=== PATIENT | male | born 1995 | race Caucasian/White ===

== ENCOUNTER 2020-01-14 19:32 | Inpatient (IN) | payer MEDICAID ==
[~2020-01-14] VITALS: Ht 177.8 cm; Wt 84.8 kg
[2020-01-14 19:36] VITALS: BP_SYST 127
--- NOTE | 2020-01-14 19:40 | NUR ---
Patient to ER bed 2 to gown for evaluation. Side rails up.
--- NOTE | 2020-01-14 19:45 | NUR ---
Pt brought in by [facility] from [facility]. Pt awake, nonverbal, vent-dependent. EMS and Facility staff state that patient had brief episode of low spo2 saturation to the approx value of 70% on 40% oxygen vented. EMS state that patient increased to 81% spo2 after they got onscene and started to assist patient with BVM and 100% oxygen. Pt presented to the ED with spo2 of 88%, being assisted with BVM. Pt diaphoretic and had moderate saliva/mucus in mouth and airway. Pt not withdrawing from pain at this time, pt appears to be otherwise in mild distress only. pt family denies any other medical complain/new symptoms at this time.
--- NOTE | 2020-01-14 19:50 | NUR ---
ER at bedside examining patient.
[2020-01-14] MEDS ORDERED: NACL 0.9% 1,000 ML IV ONE (19:51)
--- NOTE | 2020-01-14 20:00 | NUR ---
Lab bedside performing Blood Draw
--- NOTE | 2020-01-14 20:05 | NUR ---
train control technician bedside evaluating, examining and setting up ventilator for mechanical ventilation via tracheostomy
[2020-01-14 20:34] LABS: BASOPHILS % (AUTO) 0.4 % (0.0-2.0); EOSINOPHILS # (AUTO) 0.1 K/uL (0.0-0.4); EOSINOPHILS % (AUTO) 1.3 % (0.0-4.0); HEMATOCRIT 41.8 % (36-54); HEMOGLOBIN 13.8 g/dL (14.0-18.0); LYMPHOCYTES % (AUTO) 19.3 % (20.5-51.5); MEAN CORPUSCULAR HEMOGLOBIN 29 pg (27-31); MEAN CORPUSCULAR HGB CONC 33 % (32-36); MEAN CORPUSCULAR VOLUME 88 fL (79.0-98.0); MONOCYTES % (AUTO) 9.5 % (1.7-9.3); NEUTROPHILS # (AUTO) 7.1 K/uL (1.8-7.7); NEUTROPHILS % (AUTO) 69.5 % (40.0-70.0); PLATELET COUNT (AUTO) 394 K/uL (130-430); RED BLOOD CELL COUNT(AUTO) 4.74 MIL/uL (4.2-6.2); RED CELL DISTRIBUTION WIDTH 14.7 % (9.0-15.0); WHITE BLOOD COUNT (AUTO) 10.2 K/uL (4.8-10.8)
[2020-01-14 20:49] LABS: BILIRUBIN,URINE NEGATIVE (NEGATIVE); BLOOD, URINE 1+ (NEGATIVE); CLARITY/URINE SL CLOUDY (CLEAR); COLOR,URINE YELLOW (YELLOW); GLUCOSE,URINE NEGATIVE (NEGATIVE); KETONES,URINE NEGATIVE (NEGATIVE); LEUKOCYTE ESTERASE ,URINE 2+ (NEGATIVE); NITRITE, URINE NEGATIVE (NEGATIVE); PROTEIN URINE 2+ (NEGATIVE); UROBILINOGEN,URINE 0.2 (0.2-1.0)
[2020-01-14] MEDS ORDERED: DILTIAZEM HCL 25 MG/5 ML VIAL IVP ONE (21:00)
--- NOTE | 2020-01-14 21:00 | NUR ---
Pt resting in ED bed, no acute distress. Pt had family bedside. [place] provided to patient.
[2020-01-14 21:09] LABS: WBC,URINE >100 /HPF (0-3)
[2020-01-14 21:10] LABS: BACTERIA,URINE MODERATE /HPF (None Seen); MUCUS,URINE None Seen /LPF (None Seen)
[2020-01-14 21:26] LABS: CALCIUM 9.7 mg/dL (8.4-11.0); CREATININE 0.52 mg/dL (0.55-1.30); POTASSIUM 4.3 mmol/L (3.5-5.1)
[2020-01-14 21:30] LABS: ALBUMIN 3.5 g/dL (3.4-4.8); TOTAL BILIRUBIN 0.4 mg/dL (0.0-1.0)
--- NOTE | 2020-01-14 22:00 | NUR ---
Pt resting, No acute distress noted
[2020-01-14] MEDS ORDERED: LEVOFLOXACIN 500 MG/D5W 100 ML IV ONE (22:30)
--- NOTE | 2020-01-14 23:00 | NUR ---
Pt suctioned via in-line ET suction device. scant mucus present
[2020-01-14] MEDS ORDERED: LOVI40 SQ (23:09)
[2020-01-14] MEDS ORDERED: PROP10TA10 GT (23:09)
[2020-01-14] MEDS ORDERED: LEVE100S GT (23:12)
[2020-01-14] MEDS ORDERED: PSYL1POW GT (23:14)
[2020-01-14] MEDS ORDERED: RIVA10TA GT (23:16)
[2020-01-14] MEDS ORDERED: DOCU-144 GT (23:19)
[2020-01-14] MEDS ORDERED: DOCU250C14 GT (23:19)
[2020-01-14] MEDS ORDERED: TYLL650 GT (23:22)
[2020-01-14] MEDS ORDERED: UTI STAT GT (23:23)
[2020-01-14] MEDS ORDERED: MULT-300 GT (23:25)
[2020-01-14] MEDS ORDERED: ASCO500S10 GT (23:25)
[2020-01-14] MEDS ORDERED: ZINC220T4 GT (23:26)
[2020-01-15] VITALS (31 sets, daily range): BP systolic 93–136
[2020-01-15] MEDS ORDERED: NACL 0.9% 2,000 ML IV ONE
--- NOTE | 2020-01-15 | NUR ---
Pt resting in ED bed, no distress. Family bedside
--- NOTE | 2020-01-15 01:00 | NUR ---
Family bedside with patient
[2020-01-15] MEDS ORDERED: ACETAMINOPHEN 650 MG/20.3 ML UDC GT PRN (01:15)
[2020-01-15] MEDS ORDERED: ASCORBIC ACID GT SCH (01:15)
[2020-01-15] MEDS ORDERED: PIPERACILLIN/TAZO 4.5 GM in NS 100 ML IV ONE (01:15)
[2020-01-15] MEDS ORDERED: DOCUSATE SODIUM 100 MG CAPSULE PO PRN (01:15)
--- NOTE | 2020-01-15 02:00 | NUR ---
Pt resting in ED bed. No acute distress noted. Pt tolerating fluids and antibiotics well.
[2020-01-15] MEDS ORDERED: PIPERACILLIN/TAZOBACTAM 4.5 GM/VIAL (ZOSYN) IV ONE (02:25)
[2020-01-15] MEDS: LR 1,000 ML IV SCH ×3 (02:25→21:21)
--- NOTE | 2020-01-15 02:30 | NUR ---
Patient will be admitted to care of . Admitted to ICU unit. Will go to room 3. Belongings list completed. Complete and up to date summary report printed. SBAR report to be given at bedside with opportunity for questions.
--- NOTE | 2020-01-15 02:44 | NUR ---
Transfer to ICU via ACLS protocol. Licensed nurse present. IV present no signs or symptoms of infiltration.
--- NOTE | 2020-01-15 02:55 | NUR ---
Report Given to Roel Skinner
--- NOTE | 2020-01-15 03:00 | NUR ---
pt received via the er-dept.pt.presents trach set-up to vent:settings.tv;500,fio-2%=40%,a/c:12,p;5. pt.suctioned.g-tube present:to initiate the g-tube feed.melgar cath present.general cutaneous integrity intact.absent denuded skin.iv fluids access located rt.antecubital to continue w the administration of the iv fluids.pt.presents s.tachycardia;i am to administer inderal;10mg via the g-tube.call light placed w/in reach of the pt.
[2020-01-15] MEDS: PROPRANOLOL HCL 10 MG TABLET (INDERAL) GT SCH ×2 (03:54→06:00)
--- NOTE | 2020-01-15 04:00 | NUR ---
pt.assessed.v/s assessed;heart rate remains rapid.i have administered inderal;10mg via the g-tube. pt.assessed for cleanliness.pt.repositioned.iv access intact;patent iv fluids infusing.g-tube intact patent;awaiting g-tube feed per the food production supervisor;ace to provide.melgar cath attended to measured.i have attended to the oral care.i have attend to trach suction.vent asses e;pt. tolerating the vent settings.call light placed w/in reach of the pt.
[2020-01-15] MEDS ORDERED: PROPRANOLOL HCL 10 MG TABLET (INDERAL) ONE (04:08)
--- NOTE | 2020-01-15 06:00 | NUR ---
pt.assessed.v/s assessed;pt.presents s.tachycardia.i have initiated the g-tube feed;vital@70ml/hr per 's order.iv access intact;patent iv fluids infusing./g-tube intact patent g-tube feed infusing.melgar cath intact; patent urine content present.pt.assessed for cleanliness.pt.repositioned.call light placed w/in reach of the pt. Addendum: 01/15/20 at 0621 by Roel Hammer RN i have attended to oral care.i have suctioned the pt.
--- NOTE | 2020-01-15 07:30 | NUR ---
AM ASSESSMENT Pt received from night RN using SBAR.
[2020-01-15] MEDS: ENOXAPARIN SODIUM 40 MG/0.4 ML SYRINGE SQ SCH (08:14)
[2020-01-15] MEDS: LevETIRAcetam 500 MG/5 ML UDC ORAL LIQUID GT SCH ×2 (08:23→20:03)
[2020-01-15] MEDS: PSYLLIUM HUSK 1 PKT PACKET GT SCH ×3 (08:25→20:04)
--- NOTE | 2020-01-15 08:52 | NUR ---
RT NOTES Transported pt to and from CT w/ charge nurse Debi and mandi Cherry. Spare trach tube remained w/ pt during transport. Bagged pt w/ 100% o2 via ambubag to t.t. t.t remains secure/patent. @0924 pt back in icu & on the vent w/ same settings.
--- NOTE | 2020-01-15 08:52 | NUR ---
CT Pt is off unit to CT with RN and RT, pt connected to transport monitor.
[2020-01-15] MEDS ORDERED: LACTOBACILLUS RHAMNOSUS GG 1 CAP CAPSULE PO SCH (09:00)
[2020-01-15] MEDS ORDERED: MULTIVITAMINS,THERAPEUTIC 5 ML UDC GT SCH (09:00)
[2020-01-15] MEDS ORDERED: MULTIVITAMINS W MINERALS GT SCH (09:00)
[2020-01-15] MEDS ORDERED: PSYLLIUM HUSK GT SCH (09:00)
[2020-01-15] MEDS ORDERED: NON-FORMULARY MEDICATION (Zinc sulfate 1 TAB) GT SCH (09:00)
[2020-01-15] MEDS ORDERED: [UNRECOGNIZED DRUG - OTHER] GT SCH (09:00)
--- NOTE | 2020-01-15 09:08 | NUR ---
CT Pt returned to unit from CT. Pt connected to in room monitor system.
--- NOTE | 2020-01-15 09:12 | NUR ---
Nutrition Update Greg Scale 13 noted. Pt admitted for sepsis. Diet: Vital AF at 70 ml/hr, Free Water Flush: 100 ML Q6H via GT BMI: 27 kg/m2 RD to follow per nutrition care standards.
--- NOTE | 2020-01-15 10:40 | NUR ---
Temp Pt observed to be sweating, oral temperature taken which was 99.2. Informed pts mother and removed excess linen.
[2020-01-15] MEDS ORDERED: MULTIVIT-MINERALS/FERROUS GLUC 15 ML UDC GT SCH (10:41)
[2020-01-15] MEDS ORDERED: MULTIVIT-MINERALS/FERROUS GLUC 15 ML UDC GT ONE (11:00)
[2020-01-15] MEDS ORDERED: METOPROLOL TARTRATE 50 MG TABLET PO ONE (11:45)
--- NOTE | 2020-01-15 12:08 | NUR ---
Resting Pt is resting in bed with eyes closed, no signs of acute distress at this time.
[2020-01-15] MEDS ORDERED: COMMUNICATION ORDER XX ONE (12:30)
[2020-01-15] MEDS ORDERED: DOCUSATE SODIUM 100 MG/10 ML UDC GT PRN (12:34)
--- NOTE | 2020-01-15 15:35 | NUR ---
RT NOTE FIO2 to 80% due to low saturation, improved to 92-93%. Dr Montanez made aware. ABG to be drawn.
--- NOTE | 2020-01-15 15:42 | NUR ---
FiO2 Pt started to desaturate from 93% to 86%, oral and deep tracheal suction provided with small amount of thin white secretion. Switched pulse ox to another finger. Pt was maintaining 86% oxygen saturation, RT increased FiO2 to 80%. Will continue to monitor.
--- NOTE | 2020-01-15 16:40 | NUR ---
RT NOTES Despite multiple attempts, unable to enter ABG result to [employer]. RN made aware, will place hard copy of result in chart under "cardiopulmonary". @173 still unable to enter. Will endorse to NOC shift.
--- NOTE | 2020-01-15 17:50 | NUR ---
Transferred HALL Pt was transferred to a low air loss mattress bed. Pt tolerated well, will continue to monitor.
--- NOTE | 2020-01-15 19:20 | NUR ---
Opening Note Patient report received via SBAR from endorsing RN
--- NOTE | 2020-01-15 19:29 | NUR ---
Closing Notes Pt endorsed to night RN using sbar.
[2020-01-15] MEDS: LACTOBACILLUS RHAMNOSUS GG 1 CAP CAPSULE GT SCH (20:03)
[2020-01-15] MEDS: METOPROLOL TARTRATE 50 MG TABLET GT SCH (20:04)
[2020-01-15] MEDS: CEFEPIME 1 GM in D5W 50 ML IV SCH (20:06)
--- NOTE | 2020-01-15 20:15 | NUR ---
Nursing Note Patient started to desaturate from 97% to 84%, patient was provided oral and deep tracheal suction with minimal thin white secretions removed. RT increased FiO2 to 100%. Patient had elevated temperature, cooling measures applied and PRN medication administered.
--- NOTE | 2020-01-15 20:28 | NUR ---
ORDERS DR. TARIQ MADRID LEFT VOICEMAIL EXCHANGE DID NOT DIRECT ME TO PERSON CALLED MULTIPLE TIMES TO GET LIVE PERSON ON PHONE DIALED: [phone]
[2020-01-15] MEDS: ACETAMINOPHEN 650 MG/20.3 ML UDC GT PRN (20:41)
--- NOTE | 2020-01-15 20:50 | NUR ---
MOUNIKA WAS ABLE TO GET A HOLD OF DR. MADRID THROUGH USING EXCHANGE NUMBER OF DIALED: [phone] SAME EXCHANGE GROUP
[2020-01-15] MEDS ORDERED: MORPHINE 2 MG/ML INJ. SYRINGE IVP ONE (21:00)
--- NOTE | 2020-01-15 22:00 | NUR ---
Nursing Note Patient repositioned in bed, oral care performed, cooling measures continued. Patient tolerated well
[2020-01-16] VITALS (34 sets, daily range): BP systolic 95–154
--- NOTE | 2020-01-16 | NUR ---
Nursing Note Patient's FiO2 changed to 80% by RT, patient tolerating current vent settings. Oral care provided.
--- NOTE | 2020-01-16 00:30 | NUR ---
IV PLACEMENT: # 22 gauge angiocath placed to left hand. Use of asceptic technique. Opsite placed over site. Blood return noted. Flushed with 10 cc of normal saline. No evidence of infiltration noted. Patient tolerated well.
--- NOTE | 2020-01-16 01:00 | NUR ---
Nursing Note Patient provided oral care, repositioned in bed. FiO2 changed to 70% by RT, patient tolerating current vent settings
--- NOTE | 2020-01-16 03:00 | NUR ---
Nursing Note CHG bath given, linens changed, gown changed, skin picture taken for chart. PRN medication given prior to decrease discomfort. Patient had elevated temp, prn medication given.
--- NOTE | 2020-01-16 04:00 | NUR ---
Nursing Note Patient started to desaturate from 99% to 88%, patient was provided oral and deep tracheal suction with minimal thin white secretions removed. RT increased FiO2 to 100%. Patient provided prn medication
[2020-01-16] MEDS: MORPHINE 2 MG/ML INJ. SYRINGE IVP PRN (04:40)
[2020-01-16] MEDS: ACETAMINOPHEN 650 MG/20.3 ML UDC GT PRN ×2 (05:06→14:37)
[2020-01-16] MEDS: LORazepam 2 MG/ML VIAL IVP PRN ×3 (05:18→17:07)
--- NOTE | 2020-01-16 06:00 | NUR ---
Nursing Note Patient repositioned in bed and lifted higher, patient tolerated well
[2020-01-16 06:01] LABS: BASOPHILS # (AUTO) 0.1 K/uL (0.0-0.2); BASOPHILS % (AUTO) 0.6 % (0.0-2.0); EOSINOPHILS # (AUTO) 0.1 K/uL (0.0-0.4); EOSINOPHILS % (AUTO) 0.8 % (0.0-4.0); HEMATOCRIT 34.3 % (36-54); HEMOGLOBIN 11.4 g/dL (14.0-18.0); LYMPHOCYTES # (AUTO) 1.6 K/uL (1.0-5.5); MEAN CORPUSCULAR HEMOGLOBIN 30 pg (27-31); MEAN CORPUSCULAR HGB CONC 33 % (32-36); MEAN CORPUSCULAR VOLUME 88 fL (79.0-98.0); MONOCYTES # (AUTO) 0.8 K/uL (0.0-1.0); NEUTROPHILS # (AUTO) 8.9 K/uL (1.8-7.7); NEUTROPHILS % (AUTO) 77.6 % (40.0-70.0); PLATELET COUNT (AUTO) 274 K/uL (130-430); RED BLOOD CELL COUNT(AUTO) 3.88 MIL/uL (4.2-6.2); RED CELL DISTRIBUTION WIDTH 14.8 % (9.0-15.0); WHITE BLOOD COUNT (AUTO) 11.5 K/uL (4.8-10.8)
[2020-01-16 06:39] LABS: ALBUMIN 2.5 g/dL (3.4-4.8); CALCIUM 8.5 mg/dL (8.4-11.0); CREATININE 0.44 mg/dL (0.55-1.30); POTASSIUM 3.3 mmol/L (3.5-5.1); TOTAL BILIRUBIN 0.3 mg/dL (0.0-1.0)
[2020-01-16] MEDS: LR 1,000 ML IV SCH (07:23)
--- NOTE | 2020-01-16 07:24 | NUR ---
Closing Note Patient report given to oncoming RN via SBAR
[2020-01-16] MEDS: CEFEPIME 1 GM in D5W 50 ML IV SCH ×2 (09:41→21:56)
[2020-01-16] MEDS: ENOXAPARIN SODIUM 40 MG/0.4 ML SYRINGE SQ SCH (09:42)
[2020-01-16] MEDS: MULTIVIT-MINERALS/FERROUS GLUC 15 ML UDC GT SCH (09:43)
[2020-01-16] MEDS: LevETIRAcetam 500 MG/5 ML UDC ORAL LIQUID GT SCH ×2 (09:43→21:57)
[2020-01-16] MEDS: METOPROLOL TARTRATE 50 MG TABLET GT SCH ×2 (09:45→21:56)
[2020-01-16] MEDS: PSYLLIUM HUSK 1 PKT PACKET GT SCH ×3 (09:45→21:57)
[2020-01-16] MEDS: LACTOBACILLUS RHAMNOSUS GG 1 CAP CAPSULE GT SCH ×2 (09:53→21:56)
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
[2020-01-16] MEDS ORDERED: POTASSIUM CHLORIDE 20 MEQ/PKT PACKET PO ONE (14:45)
--- NOTE | 2020-01-16 14:46 | NUR ---
Dietitian Recommendations * Recommend Vital AF 1.2 at 70 ml/hr, Free Water Flush: 200 ml Q6h via GT Provides: 2015 kcal/day, 126 gm protein/day, and 1762 ml free water/day Meets: 87% of estimated caloric needs and 98% of lower end of estimated protein needs LP, RD Please refer to Nutrition Assessment for details. Addendum: 01/16/20 at [address] Amended: Links added. Addendum: 01/16/20 at [address] CORRECTION: Dietitian Recommendations * Recommend Vital AF 1.2 at 70 ml/hr, Free Water Flush: 200 ml Q6h via GT Provides: 2015 kcal/day, 126 gm protein/day, and 2162 ml free water/day Meets: 87% of estimated caloric needs and 98% of lower end of estimated protein needs LP, RD
[2020-01-16] MEDS ORDERED: ACETYLCYSTEINE 20% 4 ML VIAL (RT) ONE ×2 (17:39→19:47)
[2020-01-16] MEDS: 0.45% NACL 1,000 ML IV SCH (18:32)
--- NOTE | 2020-01-16 19:10 | NUR ---
OPENING NOTE SBAR RECEIVED FROM REGSITRY RN. CARE ASSUMED. PT LAYING IN BED. PT ANO X 0. PT HAS TRACHEOSTOMY PORTEX 8.0 CONNECTED TO VENTILATOR. VENT SETTINGS AC 14, TV 400, FiO2 100%, PEEP 5. PT O2 SATURATION 100%. PT SINUS TACHYCARDIA ON MONITOR. HEART RATE 112. RADIAL AND PEDAL PULSES NORMAL. PT HAS 18G TO RIGHT AC RUNNING 1/2 NS @ 50 ML/HR AND 22G TO LEFT HAND SALINE LOCKED. NO EDEMA NOTED. PT ABDOMEN SOFT NON DISTENDED. PT HAS G-TUBE IN PLACE RUNNING VITAL AF @ 70 CC/HR. NO RESIDUAL. PT HAS VIDAL CATHETER FLOWING TO GRAVITY. URINE CLEAR AND YELLOW. PT HAS SMALL WOUND TO UPPER UMBILICUS. DRESSING CLEAN DRY AND INTACT. BED LOCKED IN LOWEST POSITION. SEIZURE PRECAUTIONS IN PLACE. CALL LIGHT WITHIN REACH. SAFETY PRECAUTIONS IN PLACE. WILL CONTINUE TO MONITOR.
--- NOTE | 2020-01-16 20:00 | NUR ---
RT UPDATE PT FiO2 TITRATED DOWN TO 70% PER RT JONNY. O2 SATURATION 100%. WILL CONTINUE TO MONITOR.
--- NOTE | 2020-01-16 21:30 | NUR ---
RT UPDATE PT FiO2 TITRATED DOWN TO 50% PER RT ARNOLD. O2 SATURATION 100%. PT TOLERATING SETTING WELL. NO SIGNS OR SYMPTOMS OF DISTRESS. WILL CONTINUE TO MONITOR.
--- NOTE | 2020-01-16 21:45 | NUR ---
RN UPDATE (IV PLACEMENT): UNABLE TO FLUSH 22G ANGIOCATH IN LEFT HAND. IV REMOVED. 20G ANGIOCATH PLACED IN LEFT WRIST. ASEPTIC TECHNIQUE USED. BLOOD RETURN NOTED. FLUSHED WITH 10CC NS. NO EVIDENCE OF INFILTRATION NOTED. IV SECURED CLEAR DRESSING APPLIED. PT TOLERATED PROCEDURE WELL. WILL CONTINUE TO MONITOR.
[2020-01-16] MEDS: metroNIDAZOLE 500 mg/NS 100 ML IV SCH (21:55)
[2020-01-16] MEDS: POTASSIUM CHLORIDE 20 MEQ/PKT PACKET PO SCH (21:57)
[2020-01-17] VITALS (33 sets, daily range): BP systolic 93–126
[2020-01-17] MEDS: IPRATROPIUM/ALBUTEROL SULFATE 3 ML AMPUL.NEB (DUONEB) INH SCH ×4 (01:07→19:15)
[2020-01-17] MEDS: ACETAMINOPHEN 650 MG/20.3 ML UDC GT PRN (01:42)
[2020-01-17] MEDS: 0.45% NACL 1,000 ML IV SCH ×2 (05:16→17:01)
[2020-01-17] MEDS: metroNIDAZOLE 500 mg/NS 100 ML IV SCH (05:16)
[2020-01-17 05:50] LABS: BASOPHILS # (AUTO) 0.1 K/uL (0.0-0.2); BASOPHILS % (AUTO) 0.5 % (0.0-2.0); EOSINOPHILS # (AUTO) 0.1 K/uL (0.0-0.4); EOSINOPHILS % (AUTO) 1.2 % (0.0-4.0); HEMATOCRIT 31.3 % (36-54); HEMOGLOBIN 10.4 g/dL (14.0-18.0); LYMPHOCYTES # (AUTO) 1.5 K/uL (1.0-5.5); LYMPHOCYTES % (AUTO) 13.8 % (20.5-51.5); MEAN CORPUSCULAR HEMOGLOBIN 29 pg (27-31); MEAN CORPUSCULAR HGB CONC 33 % (32-36); MEAN CORPUSCULAR VOLUME 89 fL (79.0-98.0); MONOCYTES # (AUTO) 0.9 K/uL (0.0-1.0); MONOCYTES % (AUTO) 8.1 % (1.7-9.3); NEUTROPHILS # (AUTO) 8.3 K/uL (1.8-7.7); NEUTROPHILS % (AUTO) 76.4 % (40.0-70.0); PLATELET COUNT (AUTO) 227 K/uL (130-430); RED BLOOD CELL COUNT(AUTO) 3.53 MIL/uL (4.2-6.2); RED CELL DISTRIBUTION WIDTH 14.8 % (9.0-15.0); WHITE BLOOD COUNT (AUTO) 10.9 K/uL (4.8-10.8)
[2020-01-17 06:08] LABS: ALBUMIN 2.3 g/dL (3.4-4.8); CALCIUM 8.3 mg/dL (8.4-11.0); CREATININE 0.41 mg/dL (0.55-1.30); POTASSIUM 3.7 mmol/L (3.5-5.1); TOTAL BILIRUBIN 0.4 mg/dL (0.0-1.0)
[2020-01-17] MEDS: ACETYLCYSTEINE 20% 4 ML VIAL (RT) INH SCH ×4 (07:17→19:15)
--- NOTE | 2020-01-17 07:20 | NUR ---
Endorsement of Care Pt received from night RN using SBAR.
--- NOTE | 2020-01-17 07:32 | NUR ---
CLOSING NOTE PT VENT SETTINGS AC 16, TV 500, FIO2 30%, PEEP 5. PT TOLERATING SETTINGS WELL. NO SIGNS OR SYMPTOMS OF DISTRESS NOTED. SBAR REPORT GIVEN TO ROBBY EARLY. CARE ENDORSED.
--- NOTE | 2020-01-17 08:07 | NUR ---
Melgar Cath Exchanged pt's melgar cath with 16 Fr. using sterile procedure. Pt tolerated well, with 50 cc return of clear yellow urine. Melgar leg fabian applied to pts right leg. Bag is placed below bladder draining to gravity.
[2020-01-17] MEDS: METOPROLOL TARTRATE 50 MG TABLET GT SCH ×2 (08:54→21:24)
[2020-01-17] MEDS: CEFEPIME 1 GM in D5W 50 ML IV SCH (08:55)
[2020-01-17] MEDS: POTASSIUM CHLORIDE 20 MEQ/PKT PACKET PO SCH ×2 (08:55→21:24)
[2020-01-17] MEDS: PSYLLIUM HUSK 1 PKT PACKET GT SCH ×3 (08:55→21:24)
[2020-01-17] MEDS: MORPHINE 2 MG/ML INJ. SYRINGE IVP PRN ×2 (08:55→14:24)
[2020-01-17] MEDS: MULTIVIT-MINERALS/FERROUS GLUC 15 ML UDC GT SCH (08:56)
[2020-01-17] MEDS: LevETIRAcetam 500 MG/5 ML UDC ORAL LIQUID GT SCH ×2 (08:56→21:24)
[2020-01-17] MEDS: ENOXAPARIN SODIUM 40 MG/0.4 ML SYRINGE SQ SCH (08:58)
[2020-01-17] MEDS: LACTOBACILLUS RHAMNOSUS GG 1 CAP CAPSULE GT SCH ×2 (09:00→21:24)
[2020-01-17] MEDS: LORazepam 2 MG/ML VIAL IVP PRN ×2 (09:18→17:31)
--- NOTE | 2020-01-17 12:32 | NUR ---
Isolation Pt's mother informed of MDRO of Urine. Isolation precautions initiated and pts mother informed.
--- NOTE | 2020-01-17 13:15 | NUR ---
Paged Dr. Figueredo for orders. Patient placed on contact precautions for MDRO urine.
[2020-01-17] MEDS: PIPERACILLIN/TAZO 4.5GM/DEX-IS 100 ML IV SCH ×2 (15:30→21:24)
--- NOTE | 2020-01-17 19:21 | NUR ---
Closing Notes Pt endorsed to night RN using SBAR. Both parents reeducated with isolation precautions.
--- NOTE | 2020-01-17 19:28 | NUR ---
OPENING NOTE SBAR RECEIVED FROM REGSITRY RN. CARE ASSUMED. PT LAYING IN BED. PT ANO X 0. PT HAS TRACHEOSTOMY PORTEX 8.0 CONNECTED TO VENTILATOR. VENT SETTINGS AC 14, TV 400, FiO2 30%, PEEP 5. PT O2 SATURATION 100%. PT SINUS TACHYCARDIA ON MONITOR. HEART RATE 104. RADIAL AND PEDAL PULSES NORMAL. PT HAS 18G TO RIGHT AC RUNNING 1/2 NS @ 30 ML/HR AND 20G TO LEFT WRIST SALINE LOCKED. NO EDEMA NOTED. PT ABDOMEN SOFT NON DISTENDED. PT HAS G-TUBE IN PLACE RUNNING VITAL AF @ 70 CC/HR. NO RESIDUAL. PT HAS 16 FR VIDAL CATHETER FLOWING TO GRAVITY. URINE CLEAR AND YELLOW. PT HAS SMALL WOUND TO UPPER UMBILICUS. DRESSING CLEAN DRY AND INTACT. PARENTS AT BEDSIDE. BED LOCKED IN LOWEST POSITION. SEIZURE PRECAUTIONS IN PLACE. CALL LIGHT WITHIN REACH. SAFETY PRECAUTIONS IN PLACE. WILL CONTINUE TO MONITOR.
[2020-01-18] VITALS (36 sets, daily range): BP systolic 98–129
[2020-01-18] MEDS: IPRATROPIUM/ALBUTEROL SULFATE 3 ML AMPUL.NEB (DUONEB) INH SCH ×4 (02:11→19:52)
[2020-01-18] MEDS: ACETAMINOPHEN 650 MG/20.3 ML UDC GT PRN (02:42)
[2020-01-18] MEDS: LORazepam 2 MG/ML VIAL IVP PRN ×3 (02:59→14:56)
[2020-01-18] MEDS: MORPHINE 2 MG/ML INJ. SYRINGE IVP PRN ×2 (03:00→09:37)
[2020-01-18] MEDS: PIPERACILLIN/TAZO 4.5GM/DEX-IS 100 ML IV SCH ×3 (05:07→21:53)
--- NOTE | 2020-01-18 07:20 | NUR ---
Received report and endorsed patient from [facility] shift nurse. Patient in no acute distress. Padded side rails in place. Call light with in reach.
--- NOTE | 2020-01-18 07:31 | NUR ---
CLOSING NOTE PT VENT SETTINGS AC 16, TV 500, FIO2 30%, PEEP 5. PT TOLERATING SETTINGS WELL. NO SIGNS OR SYMPTOMS OF DISTRESS NOTED. SBAR REPORT GIVEN TO KATTY EARLY. CARE ENDORSED.
[2020-01-18] MEDS: POTASSIUM CHLORIDE 20 MEQ/PKT PACKET PO SCH ×2 (09:22→21:54)
[2020-01-18] MEDS: LACTOBACILLUS RHAMNOSUS GG 1 CAP CAPSULE GT SCH ×2 (09:23→21:54)
[2020-01-18] MEDS: MULTIVIT-MINERALS/FERROUS GLUC 15 ML UDC GT SCH (09:23)
[2020-01-18] MEDS: METOPROLOL TARTRATE 50 MG TABLET GT SCH ×2 (09:23→21:55)
[2020-01-18] MEDS: LevETIRAcetam 500 MG/5 ML UDC ORAL LIQUID GT SCH ×2 (09:24→21:59)
[2020-01-18] MEDS: PSYLLIUM HUSK 1 PKT PACKET GT SCH ×3 (09:24→21:54)
[2020-01-18] MEDS: ENOXAPARIN SODIUM 40 MG/0.4 ML SYRINGE SQ SCH (09:25)
[2020-01-18] MEDS: ACETYLCYSTEINE 20% 4 ML VIAL (RT) INH SCH ×4 (10:09→19:53)
[2020-01-18] MEDS: 0.45% NACL 1,000 ML IV SCH (14:56)
--- NOTE | 2020-01-18 19:30 | NUR ---
Endorsed patient and gave report to NOC shift nurse. In no acute distress. Padded side rails in place. Call light with in reach.
--- NOTE | 2020-01-18 20:33 | NUR ---
Trach to VENTILATOR AC 16 TV 500 FI02 30 % trach suction moderate amount of thick white sputum up Right position minimal vent ALARMING noted 02 SAT 98 % CHEST MOVEMENT SHALLOW also symmetrical procedure tolerated .
--- NOTE | 2020-01-18 23:13 | NUR ---
Patient on ISOLATION Precautions MDRO of the URINE , FREQUENT HAND WASHING implemented procedures explained .
--- NOTE | 2020-01-18 23:15 | NUR ---
Turning & Repositioning patient on TWO hour schedule LOW AIR LOSS matres in place OFF LOADING WITH PILLOWS TOLERATED HEELS FLOATING .
[2020-01-19] VITALS (32 sets, daily range): BP systolic 95–134
[2020-01-19] MEDS: IPRATROPIUM/ALBUTEROL SULFATE 3 ML AMPUL.NEB (DUONEB) INH SCH ×4 (01:37→20:01)
--- NOTE | 2020-01-19 03:05 | NUR ---
WOUND CARE provided lower abdomen old surgical site 100 % pink therahoney gel applied foam DSD non adhesive covered patient tolerated .
[2020-01-19] MEDS: MORPHINE 4 MG/ML INJ. SYRINGE IVP PRN (04:13)
[2020-01-19] MEDS: LORazepam 2 MG/ML VIAL IVP PRN (04:13)
--- NOTE | 2020-01-19 04:59 | NUR ---
LORAZEPAM 1 MG IVP administer for AGITATION HR 112 , off loading & position change also helpful .
[2020-01-19] MEDS: PIPERACILLIN/TAZO 4.5GM/DEX-IS 100 ML IV SCH ×3 (07:03→21:47)
[2020-01-19 07:08] LABS: BASOPHILS % (AUTO) 0.3 % (0.0-2.0); EOSINOPHILS # (AUTO) 0.2 K/uL (0.0-0.4); EOSINOPHILS % (AUTO) 2.8 % (0.0-4.0); HEMATOCRIT 32.8 % (36-54); HEMOGLOBIN 10.8 g/dL (14.0-18.0); LYMPHOCYTES # (AUTO) 1.9 K/uL (1.0-5.5); LYMPHOCYTES % (AUTO) 21.7 % (20.5-51.5); MEAN CORPUSCULAR HEMOGLOBIN 30 pg (27-31); MEAN CORPUSCULAR HGB CONC 33 % (32-36); MEAN CORPUSCULAR VOLUME 89 fL (79.0-98.0); MONOCYTES % (AUTO) 11.1 % (1.7-9.3); NEUTROPHILS # (AUTO) 5.6 K/uL (1.8-7.7); NEUTROPHILS % (AUTO) 64.1 % (40.0-70.0); PLATELET COUNT (AUTO) 256 K/uL (130-430); RED BLOOD CELL COUNT(AUTO) 3.67 MIL/uL (4.2-6.2); RED CELL DISTRIBUTION WIDTH 14.4 % (9.0-15.0); WHITE BLOOD COUNT (AUTO) 8.8 K/uL (4.8-10.8)
[2020-01-19 07:37] LABS: ALBUMIN 2.4 g/dL (3.4-4.8); CALCIUM 8.6 mg/dL (8.4-11.0); CREATININE 0.39 mg/dL (0.55-1.30); POTASSIUM 3.9 mmol/L (3.5-5.1); TOTAL BILIRUBIN 0.3 mg/dL (0.0-1.0)
--- NOTE | 2020-01-19 08:00 | NUR ---
Received pt alert with eyes open, not tracking and non verbal. Does not follow instructions. HOB up. #8 portex trach to vent on AC 16/500/30%/p5. Comfortable on these settings. RR 26/min. 02 Sat 93%. Suctioned for small amount of owusu secretions from Trach and pt clenches teeth when suctioning mouth. Lungs with rhonchi bilaterally. Pt contracted, rigid and elevated on pillows. Feet lifted off bed on pillows. Pt is very diaphoretic. Afebrile. GT to abd with tube feeds at 30 cc/hr. Foam dressing to navel area dated 01/18/430 as last change date. Will defer to next change 24 hours from that date. Dressing dry and intact. ABD soft with bowel sounds. SR on monitor. IV to right AC with IVF infusing at 30 cc/hr. Saline lock 20g to left hand. Guzmán cath in place with genet urine in bag. Wound to coccyx not observed at this time. Will continue to monitor.
[2020-01-19] MEDS: PSYLLIUM HUSK 1 PKT PACKET GT SCH ×3 (08:11→20:07)
[2020-01-19] MEDS: LACTOBACILLUS RHAMNOSUS GG 1 CAP CAPSULE GT SCH ×2 (08:11→20:07)
[2020-01-19] MEDS: POTASSIUM CHLORIDE 20 MEQ/PKT PACKET PO SCH ×2 (08:11→20:07)
[2020-01-19] MEDS: METOPROLOL TARTRATE 50 MG TABLET GT SCH ×2 (08:12→20:11)
[2020-01-19] MEDS: ENOXAPARIN SODIUM 40 MG/0.4 ML SYRINGE SQ SCH (08:12)
[2020-01-19] MEDS: LevETIRAcetam 500 MG/5 ML UDC ORAL LIQUID GT SCH ×2 (08:14→20:11)
[2020-01-19] MEDS: MULTIVIT-MINERALS/FERROUS GLUC 15 ML UDC GT SCH (08:14)
[2020-01-19] MEDS: ACETYLCYSTEINE 20% 4 ML VIAL (RT) INH SCH ×3 (08:43→19:40)
--- NOTE | 2020-01-19 11:40 | NUR ---
Repositioned to side with pillow support. No change in condition.
--- NOTE | 2020-01-19 14:35 | NUR ---
KRISTOFER VERA Received msg from Keiko @ [facility], ph [phone], wanted a call back. Called back & left msg.
[2020-01-19] MEDS: ACETAMINOPHEN 650 MG/20.3 ML UDC GT PRN (14:40)
[2020-01-19] MEDS: 0.45% NACL 1,000 ML IV SCH (16:48)
--- NOTE | 2020-01-19 17:10 | NUR ---
Dr. Ulloa in to see pt.
--- NOTE | 2020-01-19 19:20 | NUR ---
Report given to Shantelle on MST.
--- NOTE | 2020-01-19 19:45 | NUR ---
Report given to DROP HAMMER OPERATOR HELPER.
--- NOTE | 2020-01-19 19:56 | NUR ---
Opening Note Pt in bed, eyes open but unable to track or follow commands. Pt ST on the monitor, Trach to vent, AC 16, 500, +5, 30%. Orders to keep sats above 92%. Pt O2 saturations in the high 90s. Pt has MOISES IV in place, 20g, and RAC 20g in place. IVF running. Sites C/D/I. G-tube in place running TF, no residual noted. Guzmán catheter in place draining urine to gravity. Pt VSS. Afebrile. Pt family at bedside. Will continue to monitor.
--- NOTE | 2020-01-19 20:35 | NUR ---
Pt transferred Pt transferred to Telemetry, room 130A via [facility]. RN and RT with Pt during transport. Pt hooked up to oxygen and cardiac monitor technician during Transport. Tolerated well, no s/s of distress noted. Pt report previously given from Dayshift RN to Shantelle nightsabdirahman EARLY. SBAR report given at bedside to Shantelle EARLY. Chart and Medications sent w/ Pt.
--- NOTE | 2020-01-19 20:50 | NUR ---
Opening notes Received pt from ICU to Room 130-A. Pt eyes open, non-verbal, mechanical vent dependent setting AC 16, FiO2 30%, Peep 5, TV 500. Connected to Tele box, O2 sat 96-98%, SR on the monitor. GT feeding resumed Vitall 1.2 at 70cc/hr, no residual noted. HOB maintained elevated. Diogenes arms contracted. IVF resumed at ordered rate R. AC clear and patent. Pt on low air mattress. Guzmán catheter draining to gravity noted with clear, yellow urine. Contact isolation maintained. To monitor.
--- NOTE | 2020-01-20 00:21 | NUR ---
Rounds Pt asleep, eyes closed. Respirations even and unlabored. No changes in mechanical vent settings. HOB maintained elevated. GT water flush 200ml given as ordered. Safety maintained. To monitor.
[2020-01-20 00:24] VITALS: BP_SYST 102
[2020-01-20] MEDS: IPRATROPIUM/ALBUTEROL SULFATE 3 ML AMPUL.NEB (DUONEB) INH SCH ×4 (01:22→19:47)
--- NOTE | 2020-01-20 04:30 | NUR ---
GT feeding/Pericare Pt had a large formed BM, pt tolerating GT feeding well. Pericare and linens changed. HOB maintained elevated. Photos of abd wound and buttocks taken. Optifoam applied to abd wound. Z-guard applied to sacral area. Guzmán catheter drainaing to gravity. Pt repositioned, on low air loss mattress. To monitor.
[2020-01-20] MEDS: LORazepam 2 MG/ML VIAL IVP PRN (05:57)
[2020-01-20] MEDS: PIPERACILLIN/TAZO 4.5GM/DEX-IS 100 ML IV SCH ×2 (05:57→14:15)
--- NOTE | 2020-01-20 06:30 | NUR ---
Closing notes Pt eyes open, non verbal. No changes in mech vent settings. No s/s distresss noted. HOB maintained elevated. GT feeding running at ordered rate. No residual noted. IVF infusing at ordered rate MOISES 20G no s/s infiltration. Guzmán catheter draining to gravity with cloudy yellow urine, secured. Pt repositioned, HOB maintained elevated. Diogenes heels floated. Pt on low air mattress. To endorsed to AM nurse. Safety maintained.
[2020-01-20 06:36] LABS: CALCIUM 9.3 mg/dL (8.4-11.0); CREATININE 0.4 mg/dL (0.55-1.30); POTASSIUM 3.9 mmol/L (3.5-5.1)
[2020-01-20 06:52] LABS: BASOPHILS % (AUTO) 0.4 % (0.0-2.0); EOSINOPHILS # (AUTO) 0.4 K/uL (0.0-0.4); EOSINOPHILS % (AUTO) 4.2 % (0.0-4.0); HEMATOCRIT 35.7 % (36-54); HEMOGLOBIN 11.7 g/dL (14.0-18.0); LYMPHOCYTES % (AUTO) 23.5 % (20.5-51.5); MEAN CORPUSCULAR HEMOGLOBIN 29 pg (27-31); MEAN CORPUSCULAR HGB CONC 33 % (32-36); MEAN CORPUSCULAR VOLUME 89 fL (79.0-98.0); MONOCYTES % (AUTO) 11.5 % (1.7-9.3); NEUTROPHILS % (AUTO) 60.4 % (40.0-70.0); PLATELET COUNT (AUTO) 314 K/uL (130-430); RED BLOOD CELL COUNT(AUTO) 4.02 MIL/uL (4.2-6.2); RED CELL DISTRIBUTION WIDTH 14.6 % (9.0-15.0); WHITE BLOOD COUNT (AUTO) 8.3 K/uL (4.8-10.8)
[2020-01-20] MEDS: ACETYLCYSTEINE 20% 4 ML VIAL (RT) INH SCH ×3 (07:33→19:47)
--- NOTE | 2020-01-20 08:00 | NUR ---
PT. WITH NO DISTRESS NOTED. VSS, VENT. SETTINGS ORDERED, WITH 02 SAT WNL. WILL SUCTION PRN. HOB AT 30 DEGREES, GTUBE PATENT WITH NO RESIDUALS OF FEEDINGS. ISOLATION IN PLACE. WILL CONT. TO MONITOR. ST ON TELEMETRY
[2020-01-20] MEDS: PSYLLIUM HUSK 1 PKT PACKET GT SCH ×3 (08:27→21:02)
[2020-01-20] MEDS: POTASSIUM CHLORIDE 20 MEQ/PKT PACKET PO SCH ×2 (08:28→20:59)
[2020-01-20] MEDS: LACTOBACILLUS RHAMNOSUS GG 1 CAP CAPSULE GT SCH ×2 (08:32→20:59)
[2020-01-20] MEDS: ENOXAPARIN SODIUM 40 MG/0.4 ML SYRINGE SQ SCH (08:34)
[2020-01-20] MEDS: METOPROLOL TARTRATE 50 MG TABLET GT SCH (08:39)
[2020-01-20] MEDS: MULTIVIT-MINERALS/FERROUS GLUC 15 ML UDC GT SCH (10:12)
[2020-01-20] MEDS: LevETIRAcetam 500 MG/5 ML UDC ORAL LIQUID GT SCH ×2 (10:12→20:59)
[2020-01-20 11:15] VITALS: BP_SYST 114
--- NOTE | 2020-01-20 11:20 | NUR ---
JAMILA Note: Update clinical info to Jenny at [facility] MG # , fax# [phone]. Pt transferred out from ICU last night, remains on Trach/vent fio2 30%. MDRO --UA, TYRE BUILDER sputum. CM to fax the dcp/dc order when pt is stable to send back to [facility]. The transfer back will need ambulance auth from [facility] as well. May call Jenny for the auth.
[2020-01-20 15:22] VITALS: BP_SYST 157
[2020-01-20 16:00] VITALS: BP_SYST 122
[2020-01-20] MEDS ORDERED: METOPROLOL TARTRATE 50 MG TABLET GT ONE (16:15)
--- NOTE | 2020-01-20 17:15 | NUR ---
PT. SUCTIONED PRN WWITH WHITE SPUTUM NOTED. VSS, TURNED Q2. PERIODS OF DIAPHORESIS NOTED BUT BLOOD SUGAR WNL AND BP WNL. WILL CONT. TO MONITOR, NEW GTUBE FEEDING UP AND PT. TOLERATING WELL. SKIN CARE GIVEN PRN AIR MATTRESS IN USE. ST ON MONITOR, VENT SETTINGS RX'D AND PT. WITH NO DISTRESS. HOB AT 35 DEGREES.
[2020-01-20 20:00] VITALS: BP_SYST 130
--- NOTE | 2020-01-20 20:00 | NUR ---
Opening notes Pt asleep, VSS, afebrile, respirations even and unlabored. SR on the monitor. Pt on mechanical vent. HOB maintained elevated 35 degrees. GT feeding infusing at 70cc/hr. No residual noted. IVF infusing at ordered rate MOISES IV 20G no s/s infiltration. Guzmán catheter draining to gravity with cloudy yellow urine. Abd dressing C/D/I. Pt on low air mattress, repositions. Seizure precuation in place. To monitor.
[2020-01-20] MEDS: CEFEPIME 1 GM in D5W 50 ML IV SCH (20:59)
--- NOTE | 2020-01-20 23:30 | NUR ---
Rounds/Pericare Pt eyes open. Incontinent of BM, pericare/skin care provided. Pt tolerating GT feeding well. Pt repositioned with pillow support. To monitor.
[2020-01-21 01:22] VITALS: BP_SYST 128
--- NOTE | 2020-01-21 02:30 | NUR ---
Rounds Pt asleep, eyes closed, respirations even and unlabored. SR on the monitor. HOB maintained elevated. Pt repositioned. To monitor.
[2020-01-21] MEDS: METOPROLOL TARTRATE 50 MG TABLET GT SCH ×3 (06:00→17:00)
--- NOTE | 2020-01-21 06:30 | NUR ---
Closing notes Pt awake, eyes open, mechanical vent dependant. No changes in vent settings. IV saline lock R.UA and L AC clear and patent. GT feeding running at ordered rate, pt tolerating well. Water flushes given as ordered. Guzmán catheter draining to gravity with yellow, sediments. Pt repositioned, on low air mattress. HOB maintained elevated. Contact isolation in place. To endorsed to AM nurse.
[2020-01-21 07:00] VITALS: BP_SYST 131
[2020-01-21] MEDS: ACETYLCYSTEINE 20% 4 ML VIAL (RT) INH SCH ×3 (07:04→20:00)
[2020-01-21] MEDS: IPRATROPIUM/ALBUTEROL SULFATE 3 ML AMPUL.NEB (DUONEB) INH SCH ×3 (07:04→20:00)
--- NOTE | 2020-01-21 08:00 | NUR ---
PT. RESTING QUIETLY, NO DISTRESS. VSS, VENT SETTINGS AT RX'D NUMBERS. HOB AT 35 DEGREES. GTUBE PATENT WITH FEEDING AT RX'D RATE. NO RESIDUAL NOTED. AIR MATTRESS IN USE, PT. TO BE TURNED Q2. WILL CONT. TO MONITOR, ST ON TELEMENTRY.
[2020-01-21 08:10] VITALS: BP_SYST 131
[2020-01-21] MEDS: LACTOBACILLUS RHAMNOSUS GG 1 CAP CAPSULE GT SCH ×2 (09:30→21:19)
[2020-01-21] MEDS: LevETIRAcetam 500 MG/5 ML UDC ORAL LIQUID GT SCH ×2 (09:31→21:19)
[2020-01-21] MEDS: MULTIVIT-MINERALS/FERROUS GLUC 15 ML UDC GT SCH (09:31)
[2020-01-21] MEDS: POTASSIUM CHLORIDE 20 MEQ/PKT PACKET PO SCH ×2 (09:32→21:19)
[2020-01-21] MEDS: ENOXAPARIN SODIUM 40 MG/0.4 ML SYRINGE SQ SCH (09:34)
[2020-01-21] MEDS: PSYLLIUM HUSK 1 PKT PACKET GT SCH ×3 (09:48→21:19)
[2020-01-21] MEDS: CEFEPIME 1 GM in D5W 50 ML IV SCH ×2 (09:49→21:19)
[2020-01-21 12:34] VITALS: BP_SYST 126
--- NOTE | 2020-01-21 13:09 | NUR ---
Discharge Planning: DCP faxed pt referral to [facility] (f [phone] p [phone]) DCP to follow up
[2020-01-21 16:47] VITALS: BP_SYST 131
--- NOTE | 2020-01-21 18:18 | NUR ---
PT. WITH NO DISTRESS THIS SHIFT. VSS, DIAPHORESIS NOTED AND M.D. AWARE. TURNED ORDERED. WOUND CARE DONE TO ABDOMEN, CLEANSED MEDICATION APPLIED AND NEW DRESSING. WOUND BED RED WITH NO DRAINAGE OR ODOR. VENT PATENT WITH SETTINGS RX'D. SUCTIONED PRN. HOB AT 35DEGREES WILL CONT. TO MONITOR.
--- NOTE | 2020-01-21 19:30 | NUR ---
Initial Notes Received handoff report from offgoing nurse at the bedside. Patient is resting comfortably in bed, eyes closed. Breathing even and unlabored with visible chest rise and fall noted. No SOB, no acute distress, no signs of pain or facial grimacing noted. Bed is locked, lowest position, 2x side rails up, bed alarm is on. GTUBE feeding infusing per MD order, see eMAR. Tolerating vent to trach settings. Guzmán catheter draining via gravity, clear yellow urine. Diaphoretic. Provided patient with ice packs as needed, and also removed blanket. Father at the bedside. Plan of care discussed. Will continue with plan of care.
[2020-01-21 20:00] VITALS: BP_SYST 132
[2020-01-21] MEDS: ACETAMINOPHEN 650 MG/20.3 ML UDC GT PRN (21:24)
--- NOTE | 2020-01-21 21:24 | NUR ---
RN ROUNDS, Fever and Tylenol Patient has a temperature 100.4F. Provided Tylenol PRN per MD order for fever, see eMAR for details.
--- NOTE | 2020-01-21 22:00 | NUR ---
Lopressor HOLD Medication Lopressor that is supposed to be due at 2200 is HELD due to the last dose being given at 1700.
--- NOTE | 2020-01-21 22:42 | NUR ---
Hygiene, RN Rounds Patient is very diaphoretic. Bed bath provided to the patient. Patient is now clean, resting comfortably in bed. Still diaphoretic. Bed is locked, lowest position, 2x side rails up, bed alarm on, HOB elevated 40 degrees. Tolerating ordered vent settings. No SOB, no acute distress, no signs of pain or facial grimacing. Tracheal suction and oral suction provided as needed. Tolerating GTUBE feeding. Mother at the bedside. Will continue with plan of care.
[2020-01-22] VITALS (9 sets, daily range): BP systolic 110–139
[2020-01-22] MEDS: METOPROLOL TARTRATE 50 MG TABLET GT SCH ×4 (00:06→21:13)
--- NOTE | 2020-01-22 00:54 | NUR ---
Patient is resting comfortably in bed, eyes closed. Breathing even and unlabored. Visible chest rise and fall noted. No SOB, no acute distress, no signs of pain or facial grimacing noted. Bed is locked, lowest position, 2x side rails up, bed alarm is on. Call light is within reach.
[2020-01-22] MEDS: IPRATROPIUM/ALBUTEROL SULFATE 3 ML AMPUL.NEB (DUONEB) INH SCH ×4 (01:29→21:54)
--- NOTE | 2020-01-22 02:03 | NUR ---
Patient is resting comfortably in bed, eyes closed. Tolerating vent to trach settings. Breathing even and unlabored with visible chest rise and fall noted. No SOB, no acute distress, no signs of pain or facial grimacing noted. Bed is locked, lowest position, 2x side rails up, bed alarm is on. GTUBE feeding infusing per order, see emar. Call light is within reach. IV sites are intact, saline locked.
--- NOTE | 2020-01-22 03:51 | NUR ---
Changed patient's GTUBE feeding formula to a new bottle, and change GTUBE feeding line as needed. Infusing GTUBE feeding at 70ml/hr per MD order, see eMAR. No residual noted at this time. Resting comfortably in bed, eyes closed. Tolerating vent to track settings. Guzmán catheter draining yellow urine via gravity. Mother is at the bedside sleeping.
[2020-01-22 04:25] LABS: ALBUMIN 3.1 g/dL (3.4-4.8); CALCIUM 8.9 mg/dL (8.4-11.0); CREATININE 0.4 mg/dL (0.55-1.30); POTASSIUM 3.8 mmol/L (3.5-5.1); TOTAL BILIRUBIN 0.3 mg/dL (0.0-1.0)
[2020-01-22 04:28] LABS: BASOPHILS # (AUTO) 0.1 K/uL (0.0-0.2); EOSINOPHILS # (AUTO) 0.3 K/uL (0.0-0.4); EOSINOPHILS % (AUTO) 3.1 % (0.0-4.0); HEMOGLOBIN 12.4 g/dL (14.0-18.0); LYMPHOCYTES # (AUTO) 1.7 K/uL (1.0-5.5); MEAN CORPUSCULAR HEMOGLOBIN 29 pg (27-31); MONOCYTES # (AUTO) 0.9 K/uL (0.0-1.0); RED BLOOD CELL COUNT(AUTO) 4.25 MIL/uL (4.2-6.2)
[2020-01-22 04:34] LABS: BASOPHILS % (AUTO) 0.7 % (0.0-2.0); HEMATOCRIT 37.2 % (36-54); LYMPHOCYTES % (AUTO) 17.1 % (20.5-51.5); MEAN CORPUSCULAR HGB CONC 33 % (32-36); MEAN CORPUSCULAR VOLUME 88 fL (79.0-98.0); MONOCYTES % (AUTO) 9.4 % (1.7-9.3); NEUTROPHILS % (AUTO) 69.7 % (40.0-70.0); PLATELET COUNT (AUTO) 364 K/uL (130-430); RED CELL DISTRIBUTION WIDTH 14.8 % (9.0-15.0)
[2020-01-22] MEDS: MORPHINE 4 MG/ML INJ. SYRINGE IVP PRN (05:00)
[2020-01-22] MEDS: ACETAMINOPHEN 650 MG/20.3 ML UDC GT PRN ×2 (05:00→14:42)
--- NOTE | 2020-01-22 05:00 | NUR ---
Patient in bed, restless, moving head side to side, eyes opened. Appears to be in pain. Temp 100.3F. Provided pain medication as needed PRN, and Tylenol PRN for fever. See eMAR for details. Also provided ice packs for cooling measures. Currently, patient only has a gown on, no bed sheets are on the patient.
--- NOTE | 2020-01-22 05:33 | NUR ---
Patient resting comfortably in bed, eyes closed. Breathing even and unlabored with visible chest rise and fall noted. No SOB, no acute distress, no signs of pain. Afebrile.
--- NOTE | 2020-01-22 06:50 | NUR ---
Closing Notes Patient is resting comfortably in bed, eyes closed. Breathing even and unlabored with visible chest rise and fall noted. No SOB, no acute distress, no signs of pain or facial grimacing noted. Tolerating trach to vent settings. GTF infusing per MD order, see eMAR. Guzmán catheter draining via gravity. Bed is locked, lowest position, 2x side rails up, bed alarm is on. Call light is within reach. Fall and safety precautions maintained. All needs have been met during this shift. Will endorse care to oncoming dayshift nurse. Mother at the bedside sleeping.
[2020-01-22] MEDS: ACETYLCYSTEINE 20% 4 ML VIAL (RT) INH SCH ×4 (07:34→21:54)
--- NOTE | 2020-01-22 08:30 | NUR ---
RECEIVED REPORT FROM RESOURCE RN. PT ASLEEP, NAD. MOTHER AT BEDSIDE. VS DONE WNL.
[2020-01-22] MEDS: LACTOBACILLUS RHAMNOSUS GG 1 CAP CAPSULE GT SCH ×2 (09:43→21:12)
[2020-01-22] MEDS: POTASSIUM CHLORIDE 20 MEQ/PKT PACKET PO SCH ×2 (09:44→21:12)
[2020-01-22] MEDS: PSYLLIUM HUSK 1 PKT PACKET GT SCH ×3 (09:46→21:12)
[2020-01-22] MEDS: LevETIRAcetam 500 MG/5 ML UDC ORAL LIQUID GT SCH ×2 (09:48→21:13)
[2020-01-22] MEDS: MULTIVIT-MINERALS/FERROUS GLUC 15 ML UDC GT SCH (09:48)
[2020-01-22] MEDS: ENOXAPARIN SODIUM 40 MG/0.4 ML SYRINGE SQ SCH (09:59)
--- NOTE | 2020-01-22 10:00 | NUR ---
MED PASS DONE 200 ML WATER GIVEN VIA PEG. TUBE FEEDING INFUSING PER ORDERS. NAD NOTED WILL CONTINUE TO MONITOR FOR CHANGES.
[2020-01-22] MEDS: CEFEPIME 1 GM in D5W 50 ML IV SCH ×2 (10:11→21:14)
--- NOTE | 2020-01-22 10:55 | NUR ---
Discharge Planning: DCP re faxed pt referral to [facility] (f [phone] p [phone]) DCP made Ashvin aware has isolation he stated, room changes will be made to accommodate patient. DCP to follow up.
--- NOTE | 2020-01-22 11:48 | NUR ---
DC PLANNING Received call from Jenny @ [facility] [phone] fax [phone], updated on pt status dc planning SNF. States to fax dc to SNF order & will then give auth for [facility], once receives. Spoke w Dr Ulloa in [facility] [place] putting in order to dc SNF. Faxed order to Jenny. Addendum: 01/22/20 at 1218 by Nay Shore RN Received call from Don [employer] [phone], he is CM Coordinator for [facility]. He is working on auth for SNF, will call back once has it. Use [facility], no auth needed. Addendum: 01/22/20 at 1549 by Nay Shore RN No call back from Don @ [facility] yet, called & left msg waiting for [facility] auth. Per Don earlier no auth needed for [facility].
[2020-01-22] MEDS ORDERED: CEFE1PIG3 IV (13:09)
--- NOTE | 2020-01-22 14:04 | NUR ---
PATIENT W/ HR 142 BPM, S/P DUONEB RESP TREATMENT AND TACHE SUCTIONING BY RESP THERAPIST. PATIENT PRESENTS W/ PROFUSE SWEATING, TEMP 97.8 (TEMPORAL), HE APPEARS TO BE UPSET, MOTHER AT BEDSIDE AND AGREED W/ ASSESSMENT SHE RE-ITERATED, HE IS "ALTERADO". WILL ASSESS MED REC FOR SUITABLE MEDICATION ADMIN.
[2020-01-22] MEDS: LORazepam 2 MG/ML VIAL IVP PRN (14:44)
--- NOTE | 2020-01-22 15:30 | NUR ---
MED GIVEN FOR SIGN OF DISTRESS @ 1410- MEDICATED WITH ATIVAN 0.5ML IVP, TYLENOL 650 MG AND SCHEDULED LOPRESSOR 50 MG VIA PEG. PATIENT CLEANSED AND RE-POSITIONED, BM X1. VS RE-ASSESSED 1530- T 97.3, BP 117/80, P 116. IV TO RIGHT UPPER FA DISLODGED. NEW IV RECITED TO LEFT HAND, 20G, X1 ATTEMPT, SITE W/ POS FLUSH, WRAPPED W/ KERLIX FOR SAFETY. PATIENT IS PRESENTLY CALM, IN NO APPARENT DISTRESS, MOTHER AT BEDSIDE. HOUSEKEEPING CALLED FOR DISINFECTING ROOM.
--- NOTE | 2020-01-22 17:03 | NUR ---
Nutrition F/U (short note d/t high patient load) RD reviewed pt's current EMR including diet Hx, physician notes, nursing notes, pertinent labs/meds/procedures, care trends, and care activity. Current Nutrition Support: Vital AF 1.2 at 70 ml/hr, Free Water Flush: 200 ml Q6h via GT x6 days Per EMR, pt has been tolerating TF well w/ no s/s of intolerance -- abd is soft and non-distended w/ active bowel sounds; minimal residuals noted; last BM x1 01/22/20. Current TF regimen remains adequate/appropriate. Pt is at moderate nutritional risk; RD to F/U within 3-5 days.
--- NOTE | 2020-01-22 19:05 | NUR ---
REPORT TO 7 PM RN. PT ASLEEP AT INTERVALS W/ MOM AT BEDSIDE. SWEATING HAS SUBSIDED. BS DONE 1420= 114MG/DL.
--- NOTE | 2020-01-22 19:10 | NUR ---
OPENING NOTES Received patient resting, connected to trach, tolerating well, no acute respiratory distress observed. Family at bedside. Seizure pads in place. Guzmán catheter in place, draining by gravity, no kinks or loops noted. IV site patent, Left hand 20g, dressings c/d/i. G tube in place, Gtube feeding running, patient tolerating well. HOB elevated. Heels elevated, air loss mattress. Call light within reach, rounds to be performed throughout shift. Bed at lowest position, bed alarm on. Will continue to monitor.
--- NOTE | 2020-01-22 21:30 | NUR ---
Patient is resting, no signs of distress observed, new gown provided with bed bath, patient is sweating at the chest area. Safety precautions in place. Will continue to monitor.
--- NOTE | 2020-01-22 23:40 | NUR ---
Patient is resting, no signs of acute respiratory distress observed. New bag of feeding hung. Will continue to monitor.
[2020-01-23] VITALS (8 sets, daily range): BP systolic 106–149
[2020-01-23] MEDS: IPRATROPIUM/ALBUTEROL SULFATE 3 ML AMPUL.NEB (DUONEB) INH SCH ×4 (01:07→19:31)
--- NOTE | 2020-01-23 02:11 | NUR ---
Patient is resting, eyes closed. Family at bedside. No acute respiratory distress observed. Will continue to monitor.
--- NOTE | 2020-01-23 04:13 | NUR ---
Patient is resting, no signs of distress observed. Will continue to monitor.
[2020-01-23] MEDS: METOPROLOL TARTRATE 50 MG TABLET GT SCH ×2 (05:34→14:03)
--- NOTE | 2020-01-23 07:01 | NUR ---
CLOSING NOTES Patient resting, connected to trach, tolerating well, no acute respiratory distress observed. Family at bedside. Seizure pads in place. Guzmán catheter in place, draining by gravity, no kinks or loops noted. IV site patent, Left hand 20g, dressings c/d/i. G tube in place, Gtube feeding running, patient tolerating well. HOB elevated. Heels elevated, air loss mattress. Call light within reach, rounds performed throughout shift. Bed at lowest position, bed alarm on. All needs met throughout shift.
[2020-01-23] MEDS: LevETIRAcetam 500 MG/5 ML UDC ORAL LIQUID GT SCH (08:52)
[2020-01-23] MEDS: MULTIVIT-MINERALS/FERROUS GLUC 15 ML UDC GT SCH (08:52)
[2020-01-23] MEDS: CEFEPIME 1 GM in D5W 50 ML IV SCH (08:53)
[2020-01-23] MEDS: LACTOBACILLUS RHAMNOSUS GG 1 CAP CAPSULE GT SCH (08:54)
[2020-01-23] MEDS: POTASSIUM CHLORIDE 20 MEQ/PKT PACKET PO SCH (08:54)
[2020-01-23] MEDS: PSYLLIUM HUSK 1 PKT PACKET GT SCH ×2 (08:54→14:02)
[2020-01-23] MEDS: ENOXAPARIN SODIUM 40 MG/0.4 ML SYRINGE SQ SCH (08:55)
--- NOTE | 2020-01-23 09:45 | NUR ---
opening notes, received pt in bed, pt is non verbal, no resp distress, no sob, no s/s pain. pt in tract to vent, setting ac 16, tv 500, peep 5, fio2 30%. vitals wnl. no fever. pt on o2 el per nc. g-tube infusing well, No residual noted. safety precaution in place. bed alarm on , bed in low position. hob at 35 degrees. pt's mother at bedside. will cont to monitor.
--- NOTE | 2020-01-23 10:16 | NUR ---
DC PLANNING SPOKE TO KRISTOPHER # [phone], GIVEN HER CIARAN ALICEA TEL # [phone] SHE WILL SPEAK TO JEREMYMike NIXON FIRST THEN LET US KNOW WHEN WE CAN TRANSFER PATIENT TO SUBACUTE TODAY. LAZARUS EARLY CM Addendum: 01/23/20 at 1026 by Prudence Pineda RN [facility] AUTH # [id number] AND [facility] AUTH # [id number] HAVE BEEN RELEASED FROM INSURANCE KRISTOPHER AT 10:20 AM. LAZARUS EARLY CM Addendum: 01/23/20 at 1148 by Prudence Pineda RN called RN for updated DC order to [facility]. LAZARUS EARLY CM
--- NOTE | 2020-01-23 11:51 | NUR ---
PAGED PAGED CLEMENT ENCINAS AT [phone] SPOKE WITH VICKY.
[2020-01-23] MEDS: MORPHINE 4 MG/ML INJ. SYRINGE IVP PRN (14:20)
--- NOTE | 2020-01-23 14:23 | NUR ---
pt given morphine, pt bp at 155/95, hr was on130 per tele, rr 17 99% on vent. will cont to monitor.
--- NOTE | 2020-01-23 14:25 | NUR ---
current bp is 125/62 hr 117 after ms given.
--- NOTE | 2020-01-23 15:00 | NUR ---
WOUND CARE DONE, PHOTOS TAKEN. PT TOLERATED WELL.
--- NOTE | 2020-01-23 15:12 | NUR ---
Discharge Planning: DCP arrange transportation with [facility] ([phone]) specialty transport (trach/Vent) patient, they will call nurse station with time of bead picker. Patient going to [facility] ([phone]) Rm 41, DCP took patient packet to nurse station. Addendum: 01/23/20 at 1546 by Sandra APONTE REf# [id number]
--- NOTE | 2020-01-23 16:06 | NUR ---
SBAR REPORT GIVEN TO SHARATH KIDD OF [facility].
--- NOTE | 2020-01-23 17:28 | NUR ---
PT SLEEPING, NO DISTRESS, FAMILY AT BEDSIDE.
--- NOTE | 2020-01-23 18:38 | NUR ---
PAGED PAGED CLEMENT ENCINAS AT [phone] SPOKE WITH
[2020-01-23] MEDS ORDERED: LORazepam 2 MG/ML VIAL IVP ONE (18:45)
[2020-01-23] MEDS ORDERED: LORazepam 2 MG/ML VIAL ONE (19:03)
[2020-01-23] MEDS: LORazepam 2 MG/ML VIAL IVP PRN (19:10)
--- NOTE | 2020-01-23 19:22 | NUR ---
closing notes, endorsed to night nurse lester that pt is for dc to [facility], that pt had an episode before 7pm of tachypnea and tachy cardia. that dr alarcon was informed. ordered ativan and it was given . that pt was suctioned by r.t and after that bp is better and hr is now on the 110's to 120s.
--- NOTE | 2020-01-23 19:30 | NUR ---
Opening Note Patient resting in bed,, no s/s of distress, connected to trach, tolerating well, no acute respiratory distress observed. Family at bedside. Seizure pads in place. Guzmán catheter in place, draining by gravity, no kinks or loops noted. IV site patent, Left hand 20g, dressings c/d/i. G tube in place, Gtube feeding running, patient tolerating well. HOB elevated. Heels elevated, air loss mattress. Call light within reach, rounds performed throughout shift. Bed at lowest position, bed alarm on. Patient's family aware that patient will be transferred to [facility].
[2020-01-23] MEDS: ACETYLCYSTEINE 20% 4 ML VIAL (RT) INH SCH (19:32)
--- NOTE | 2020-01-23 21:00 | NUR ---
Discharge Pt discharged to be transferred to [facility]. ID band removed. Discharge instructions given to patient and family, discharge instructions signed by patient's father. Transfer agreement signed. VSS, breathing is unlabored to vent settings. Pt taken via drew.
== END 2020-01-23 21:00 | DRG 720 ==
LOC: SED 19:32 → SIC 01-15 00:06 → STU 01-19 20:50
PROVIDERS: ADMIT Internal Medicine; ATTEND Internal Medicine
PROC: 5A1955Z Respiratory Ventilation, Greater than 96 Consecutive Hours (ICD-10-PCS; 2020-01-16)
PROC: 0B9B8ZZ Drainage of Left Lower Lobe Bronchus, Via Natural or Artificial Opening Endoscopic (ICD-10-PCS; 2020-01-16)
PROC: 0B988ZZ Drainage of Left Upper Lobe Bronchus, Via Natural or Artificial Opening Endoscopic (ICD-10-PCS; 2020-01-16)
PROC: 0B9J8ZX Drainage of Left Lower Lung Lobe, Via Natural or Artificial Opening Endoscopic, Diagnostic (ICD-10-PCS; principal; 2020-01-16 17:30)
DX: A41.9 Sepsis, unspecified organism (principal); J96.20 Acute and chronic respiratory failure, unspecified whether with hypoxia or hypercapnia; J69.0 Pneumonitis due to inhalation of food and vomit; G93.1 Anoxic brain damage, not elsewhere classified; Z99.11 Dependence on respirator [ventilator] status; E44.0 Moderate protein-calorie malnutrition; E87.2 Acidosis; Z93.0 Tracheostomy status; T17.590A Other foreign object in bronchus causing asphyxiation, initial encounter; X58.XXXA Exposure to other specified factors, initial encounter; G80.0 Spastic quadriplegic cerebral palsy; N39.0 Urinary tract infection, site not specified; Z16.24 Resistance to multiple antibiotics; R13.10 Dysphagia, unspecified; I49.9 Cardiac arrhythmia, unspecified; B96.4 Proteus (mirabilis) (morganii) as the cause of diseases classified elsewhere; G40.909 Epilepsy, unspecified, not intractable, without status epilepticus; Y95 Nosocomial condition; J98.11 Atelectasis; Z79.899 Other long term (current) drug therapy; Z87.01 Personal history of pneumonia (recurrent); Z68.26 Body mass index [BMI] 26.0-26.9, adult; Y93.89 Activity, other specified; Y92.89 Other specified places as the place of occurrence of the external cause; Y99.8 Other external cause status
CPT/HCPCS: 31624; 36415; 36600; 71045; 71250-TC; 80048; 80053; 81000-TC; 82803-TC; 82962; 83605; 83735-TC; 84484; 85025; 85610-TC; 85730-TC; 86710; 87040-TC; 87070-TC; 87081; 87086; 87101; 87186-TC; 87205-TC; 93005; 93970; 94002; 94003; 94640; 94760; 96361; 96365; 96367; 96375; 99285; G0378; J0692; J1650; J1956; J2060; J2270; J2543; J3490; J7030; J7060; J7120; J7608

== ENCOUNTER 2020-04-24 16:36 | Inpatient (IN) | payer MEDICAID, SELFPAY ==
[~2020-04-24] VITALS: Ht 170.2 cm; Wt 67.4 kg
[~2020-04-24 16:36] MED LIST: ASCO500S10 GT; CEFE1PIG3 IV; DOCU-144 GT; LEVE100S GT; LOVI40 SQ; MULT-300 GT; PROP10TA10 GT; PSYL1POW GT; RIVA10TA GT; TYLL650 GT; UTI STAT GT; ZINC220T4 GT
[2020-04-24 17:22] VITALS: BP_SYST 118
--- NOTE | 2020-04-24 17:22 | NUR ---
Patient to ER bed 4 to gown for evaluation. Side rails up.
--- NOTE | 2020-04-24 17:22 | NUR ---
Pt brought to ER via S ambulance for Guzmán change after it was discovered it was unable to be removed while at [facility].
--- NOTE | 2020-04-24 17:30 | NUR ---
ER at bedside examining patient.
[2020-04-24 17:42] LABS: EOSINOPHILS # (AUTO) 0.2 K/uL (0.0-0.4); EOSINOPHILS % (AUTO) 1.5 % (0.0-4.0); LYMPHOCYTES # (AUTO) 1.4 K/uL (1.0-5.5); MONOCYTES # (AUTO) 0.8 K/uL (0.0-1.0); RED BLOOD CELL COUNT(AUTO) 4.57 MIL/uL (4.2-6.2); RED CELL DISTRIBUTION WIDTH 14.3 % (9.0-15.0)
[2020-04-24 17:44] LABS: BASOPHILS # (AUTO) 0.1 K/uL (0.0-0.2); BASOPHILS % (AUTO) 0.4 % (0.0-2.0); HEMATOCRIT 39.1 % (36-54); LYMPHOCYTES % (AUTO) 8.4 % (20.5-51.5); MEAN CORPUSCULAR HEMOGLOBIN 28 pg (27-31); MEAN CORPUSCULAR HGB CONC 33 % (32-36); MEAN CORPUSCULAR VOLUME 85 fL (79.0-98.0); MONOCYTES % (AUTO) 4.9 % (1.7-9.3); NEUTROPHILS # (AUTO) 13.9 K/uL (1.8-7.7); NEUTROPHILS % (AUTO) 84.8 % (40.0-70.0); PLATELET COUNT (AUTO) 403 K/uL (130-430); WHITE BLOOD COUNT (AUTO) 16.4 K/uL (4.8-10.8)
[2020-04-24 18:03] LABS: CREATININE 0.43 mg/dL (0.55-1.30); POTASSIUM 3.7 mmol/L (3.5-5.1)
[2020-04-24 18:04] LABS: BILIRUBIN,URINE NEGATIVE (NEGATIVE); BLOOD, URINE 3+ (NEGATIVE); CLARITY/URINE TURBID (CLEAR); COLOR,URINE YELLOW (YELLOW); GLUCOSE,URINE NEGATIVE (NEGATIVE); KETONES,URINE NEGATIVE (NEGATIVE); LEUKOCYTE ESTERASE ,URINE 2+ (NEGATIVE); NITRITE, URINE POSITIVE (NEGATIVE); PH,URINE 7.5 (5.0-8.0); PROTEIN URINE 2+ (NEGATIVE); UROBILINOGEN,URINE 0.2 (0.2-1.0)
[2020-04-24 18:10] LABS: ALBUMIN 3.3 g/dL (3.4-4.8); TOTAL BILIRUBIN 0.3 mg/dL (0.0-1.0)
[2020-04-24 18:15] LABS: BACTERIA,URINE MANY /HPF (None Seen); RBC,URINE >100 /HPF (0-3); WBC,URINE 80-100 /HPF (0-3)
[2020-04-24] MEDS ORDERED: cefTRIAXone 1 GM IVPB PREMIX 50 ML IV ONE (18:15)
[2020-04-24 18:16] LABS: URINE AMORPHOUS PHOSPHATES 3+ /HPF (None Seen)
[2020-04-24] MEDS ORDERED: LEVE100S GT (19:41)
[2020-04-24] MEDS ORDERED: LORA-258 GT (19:41)
[2020-04-24] MEDS ORDERED: ALBU8.5H8 INH ×2 (19:41)
[2020-04-24] MEDS ORDERED: LACT1CAP89 GT (19:41)
[2020-04-24] MEDS ORDERED: LEVE100S PO (19:41)
[2020-04-24] MEDS ORDERED: BACL10TA GT (19:41)
[2020-04-24] MEDS ORDERED: DIPH25CA83 GT (19:41)
[2020-04-24] MEDS ORDERED: METO100T14 GT (20:08)
[2020-04-24] MEDS ORDERED: POLY17PO4 GT (20:08)
[2020-04-24] MEDS ORDERED: OMEP40CA33 GT (20:08)
--- NOTE | 2020-04-24 20:21 | NUR ---
ER and Dr. Giordano at bedside examining patient.
[2020-04-24] MEDS ORDERED: AMIN30LI2 GT ×2 (20:29→21:07)
[2020-04-24] MEDS ORDERED: D5LR 1,000 ML IV SCH (20:30)
[2020-04-24] MEDS ORDERED: SENN-278 GT (20:42)
[2020-04-24] MEDS ORDERED: TRAM-350 PO (20:42)
[2020-04-24] MEDS ORDERED: TRAM100T34 GT (20:42)
[2020-04-24] MEDS ORDERED: LORazepam 1 MG TABLET GT PRN (20:45)
[2020-04-24] MEDS ORDERED: PIPERACILLIN/TAZO 3.375 GM in NS 50 ML IV ONE (20:45)
[2020-04-24] MEDS ORDERED: ACETAMINOPHEN 650 MG/20.3 ML UDC PO PRN (20:45)
[2020-04-24] MEDS ORDERED: ACETAMINOPHEN 650 MG/20.3 ML UDC GT PRN (20:45)
--- NOTE | 2020-04-24 20:55 | NUR ---
Medication reconciliation completed with information provided by facility documents. Any prior medication reconciliation on file was reviewed and corrected.
--- NOTE | 2020-04-24 20:57 | NUR ---
RT at bedside set up for transfer to Tele.
--- NOTE | 2020-04-24 21:05 | NUR ---
Patient will be admitted to care of Dr. Ulloa. Admitted to Tele unit. Will go to room 110B. Belongings list completed. Complete and up to date summary report printed. SBAR report to be given at bedside with opportunity for questions.
--- NOTE | 2020-04-24 21:07 | NUR ---
Transfer to Tele via ACLS protocol. Licensed nurse present. IV present no signs or symptoms of infiltration.
[2020-04-24] MEDS ORDERED: PIPERACILLIN/TAZOBACTAM 3.375 GM/VIAL (ZOSYN) IV ONE ×2 (21:17→23:09)
--- NOTE | 2020-04-24 21:24 | NUR ---
ADMIT NOTE Received pt from ER to the floor with a diagnosis of MALFUNCTION OF VIDAL CATHETER. Admission process initiated. patient oriented to pain management, safety and call light-pt is non verbal.
--- NOTE | 2020-04-24 21:35 | NUR ---
DR. GALINDO BY BEDSIDE. PT ON A VENT. ASKED ABOUT COVID TESTING. STATED HE DIDN'T WANT A COVID TEST DONE.
--- NOTE | 2020-04-24 21:35 | NUR ---
CONSULTATION PAGED/CALLED Reason for Consultation: VENT Person Who was Notified: DR. GALINDO AT BEDSIDE Consulting Physician: DR. GALINDO Clammer Specialty: PULMO Ordering Physician: SAMANTA
--- NOTE | 2020-04-24 22:22 | NUR ---
PAGED PAGED DOCTOR PINA
--- NOTE | 2020-04-24 22:24 | NUR ---
CONSULTATION PAGED/CALLED Reason for Consultation: MALFUNCTION OF VIDAL CATH Person Who was Notified: EXCHANGE Consulting Physician: DR. VILLA Flower Shop Manager Specialty: UROLOGY Ordering Physician: SAMANTA
--- NOTE | 2020-04-24 22:55 | NUR ---
COMMUNICATED WITH DR. VILLA. DR. VILLA STATES HE IS NOT AFFILIATED WITH [facility]. WILL COMMUNICATE WITH DR. ENGLAND. Addendum: 04/25/20 at 0001 by Hernandez Kamara RN COMMUNICATED 500 ML OF URINE WITH BLADDER SCAN
[2020-04-24 22:57] VITALS: BP_SYST 110
[2020-04-24 23:00] VITALS: BP_SYST 128
--- NOTE | 2020-04-24 23:14 | NUR ---
paged paged doctor dorian
--- NOTE | 2020-04-24 23:23 | NUR ---
JUAN ANTONIO PRES, THEY HAVE NO BEDS SPOKE WITH IZZY
--- NOTE | 2020-04-24 23:30 | NUR ---
COMMUNICATED WITH DR. ENGLAND ABOUT TRANSFERRING TO HIGHER LEVEL OF CARE. Addendum: 04/25/20 at 0212 by Hernandez Kamara RN COMMUNICATED TO HOLD TUBE FEEDING AND HOLD IV FLUIDS.
--- NOTE | 2020-04-24 23:30 | NUR ---
INITIAL NOTES PATIENT IS ON A VENT AND LAYING IN BED. BED IS LOCKED, ALARMED, AND AT THE LOWEST POSITION. FALL, SAFETY, ASPIRATION, AND RESPIRATORY PRECAUTIONS WILL BE IN PLACE THROUGHOUT THE SHIFT. PLAN OF CARE IS DISCUSSED WITH PATIENT. PATIENT UNSUCCESSFULLY DEMONSTRATES USAGE OF CALL LIGHT AT THIS TIME. WILL CONTINUE TO MONITOR FREQUENTLY. Addendum: 04/25/20 at 0156 by Hernandez Kamara RN WRONG TIME [id number]*
--- NOTE | 2020-04-24 23:32 | NUR ---
[facility] NO BEDS SPOKE WITH CHARLI
--- NOTE | 2020-04-24 23:33 | NUR ---
[facility] NO BEDS SPOKE WITH SRINI
--- NOTE | 2020-04-24 23:40 | NUR ---
EDGARD FLYNN SPOKE WITH BORIS SHE ASKED TO FAX OVER INFO
[2020-04-25] VITALS (35 sets, daily range): BP systolic 66–148
[2020-04-25] MEDS ORDERED: LevETIRAcetam 500 MG/5 ML UDC ORAL LIQUID ONE (00:08)
--- NOTE | 2020-04-25 00:10 | NUR ---
RAPID RESPONSE CALLED. PT HR INCREASING TO 160'S AND O2 IS DECREASING.
--- NOTE | 2020-04-25 00:28 | NUR ---
PAGED MD ABOUT RAPID RESPONSE. ORDERS RECEIVED TO TRANSFER.
[2020-04-25] MEDS: LORazepam 2 MG/ML VIAL IVP PRN ×3 (00:34→11:36)
[2020-04-25] MEDS: LevETIRAcetam 500 MG/5 ML UDC ORAL LIQUID PO SCH ×3 (00:41→21:33)
[2020-04-25] MEDS: METOPROLOL TARTRATE 50 MG TABLET GT SCH ×4 (00:42→21:35)
[2020-04-25] MEDS: DIPHENHYDRAMINE HCL 25 MG CAPSULE GT SCH ×3 (00:42→21:33)
[2020-04-25] MEDS: SENNOSIDES/DOCUSATE SODIUM 1 TAB TABLET(SENOKOT-S) GT SCH ×3 (00:44→21:33)
[2020-04-25] MEDS: BACLOFEN 10 MG TABLET GT SCH ×4 (00:44→21:34)
[2020-04-25] MEDS: LACTOBACILLUS RHAMNOSUS GG 1 CAP CAPSULE GT SCH ×3 (00:44→21:34)
[2020-04-25] MEDS ORDERED: ONDANSETRON HCL 4 MG/2 ML VIAL IVP PRN (00:45)
[2020-04-25] MEDS ORDERED: NACL 0.9% 1,000 ML IV ONE ×3 (00:45→19:45)
[2020-04-25] MEDS ORDERED: MORPHINE 4 MG/ML INJ. SYRINGE IVP PRN (00:45)
[2020-04-25] MEDS ORDERED: LORazepam 2 MG/ML VIAL ONE (00:50)
--- NOTE | 2020-04-25 00:54 | NUR ---
RAPID RESPONSE ENDED. WILL TRANSFER TO ICU
--- NOTE | 2020-04-25 01:00 | NUR ---
TRANSFERRED TO ICU. REPORT ENDORSED TO SHARATH MEADOWS.
--- NOTE | 2020-04-25 01:00 | NUR ---
EDGARD ESCALANTE CALLED BACK FROM THE TRANSFER CENTER AND SAID THAT SHE CONSULTED THE UROLOGIST AND HE RECOMENDED THAT THE PT BE TRANFERED TO A TERTIARY CENTER
[2020-04-25 01:28] LABS: MEAN CORPUSCULAR VOLUME 86 fL (79.0-98.0)
[2020-04-25 01:31] LABS: CALCIUM 8.9 mg/dL (8.4-11.0); CREATININE 0.55 mg/dL (0.55-1.30); POTASSIUM 4.1 mmol/L (3.5-5.1)
[2020-04-25 01:32] LABS: BASOPHILS # (AUTO) 0.1 K/uL (0.0-0.2); BASOPHILS % (AUTO) 0.3 % (0.0-2.0); EOSINOPHILS % (AUTO) 0.1 % (0.0-4.0); HEMATOCRIT 41.7 % (36-54); HEMOGLOBIN 13.8 g/dL (14.0-18.0); LYMPHOCYTES # (AUTO) 0.9 K/uL (1.0-5.5); LYMPHOCYTES % (AUTO) 4.4 % (20.5-51.5); MEAN CORPUSCULAR HEMOGLOBIN 28 pg (27-31); MEAN CORPUSCULAR HGB CONC 33 % (32-36); MONOCYTES # (AUTO) 0.4 K/uL (0.0-1.0); MONOCYTES % (AUTO) 2.1 % (1.7-9.3); NEUTROPHILS # (AUTO) 19.1 K/uL (1.8-7.7); NEUTROPHILS % (AUTO) 93.1 % (40.0-70.0); PLATELET COUNT (AUTO) 383 K/uL (130-430); RED BLOOD CELL COUNT(AUTO) 4.86 MIL/uL (4.2-6.2); RED CELL DISTRIBUTION WIDTH 14.7 % (9.0-15.0); WHITE BLOOD COUNT (AUTO) 20.5 K/uL (4.8-10.8)
[2020-04-25] MEDS: PIPERACILLIN/TAZO 3.375/DEX-IS 50 ML IV SCH ×4 (01:36→18:00)
--- NOTE | 2020-04-25 01:48 | NUR ---
COMMUNICATED WITH DIA BECK (FATHER) ABOUT TRANSFER TO ICU.
--- NOTE | 2020-04-25 02:00 | NUR ---
TYLENOL GR 10 GT GIVEN FOR TEMP 100.4.
--- NOTE | 2020-04-25 04:00 | NUR ---
SUCTIONED. TURNED. ORAL CARE GIVEN. RESPONDS TO NOXIOUS STIMULI.
--- NOTE | 2020-04-25 05:30 | NUR ---
FIO2 DECREASED TO 80% BY RT. SHIV WELL. POX 100%. AM CARE GIVEN.
--- NOTE | 2020-04-25 06:00 | NUR ---
SUCTIONED. TURNED. UO 0. REMAINS IN GUARDED CONDITION.
[2020-04-25] MEDS: LANSOPRAZOLE 30 MG CAPSULE.DR GT SCH (06:15)
[2020-04-25 06:31] LABS: BASOPHILS % (AUTO) 0.2 % (0.0-2.0); HEMATOCRIT 39.8 % (36-54); HEMOGLOBIN 13.2 g/dL (14.0-18.0); LYMPHOCYTES # (AUTO) 1.3 K/uL (1.0-5.5); LYMPHOCYTES % (AUTO) 7.4 % (20.5-51.5); MEAN CORPUSCULAR HEMOGLOBIN 28 pg (27-31); MEAN CORPUSCULAR HGB CONC 33 % (32-36); MEAN CORPUSCULAR VOLUME 85 fL (79.0-98.0); MONOCYTES # (AUTO) 0.5 K/uL (0.0-1.0); MONOCYTES % (AUTO) 2.8 % (1.7-9.3); NEUTROPHILS # (AUTO) 15.1 K/uL (1.8-7.7); NEUTROPHILS % (AUTO) 89.6 % (40.0-70.0); PLATELET COUNT (AUTO) 332 K/uL (130-430); RED BLOOD CELL COUNT(AUTO) 4.71 MIL/uL (4.2-6.2); RED CELL DISTRIBUTION WIDTH 14.8 % (9.0-15.0); WHITE BLOOD COUNT (AUTO) 16.8 K/uL (4.8-10.8)
[2020-04-25 06:54] LABS: CALCIUM 9.1 mg/dL (8.4-11.0); CREATININE 0.63 mg/dL (0.55-1.30); POTASSIUM 3.9 mmol/L (3.5-5.1)
--- NOTE | 2020-04-25 07:43 | NUR ---
OPENS EYES ONLY. ST ON MONITOR. F/C HAS MINIMAL OUTPUT. GT IS IN PLACE; FEEDING HELD DUE TO MALFUNCTIONING URINARY CATHETER. BED IS LOCKED, ALARMED, AND AT THE LOWEST POSITION. FALL, SAFETY, ASPIRATION, AND RESPIRATORY PRECAUTIONS WILL BE IN PLACE THROUGHOUT THE SHIFT.
[2020-04-25] MEDS: MULTIVITS,CA,MINERALS/IRON/FA 1 TABLET GT SCH (08:59)
[2020-04-25] MEDS: NON-FORMULARY MEDICATION (Amino Acids/Protein Hydrolys (Pro-Stat Liquid) 30 ML) GT SCH (09:00)
--- NOTE | 2020-04-25 09:02 | NUR ---
ATTENDING MD DR ENGLAND WAS CALLED, RE: HIGH BP AND HIGH HR. SPOKE TO
--- NOTE | 2020-04-25 09:30 | NUR ---
Dr. Ulloa and Raw Sampler are discussing the plan of care for the patient.
--- NOTE | 2020-04-25 10:00 | NUR ---
[employer] /[facility] Care ins: late entry: Discussed the transfer request with Jazz/JAMILA tel # [phone], cell for today only # [phone], fax # [phone]. Informed her [facility] (in network with [facility]) declined to accept the pt. She advised to call [facility] which per Rebecca/intake: can accept [employer] PPO only, NO [facility] or HMO. Addendum: 04/25/20 at 1616 by Hakeem Maurice RN Received call from Jazz/ will not approve ANGELA to a non contracted hospital: [facility]. She stated : [facility] is the contracted and is expecting to provide the service. The urologist on the case can bill [facility] Care IPA using ref auth# [id number], tel # [phone] for the service rendered. -- YNES Louise and dr. Ulloa made aware.
--- NOTE | 2020-04-25 10:23 | NUR ---
UROLOGIST, DR DAVID VILLA WAS PAGED DIRECTLY AND CALLED, RE: LETTER OF AGREEMENT FOR HIM TO SEE PT PER KEITH'S CNO, GRACIE. SPOKE TO JAMAL.
--- NOTE | 2020-04-25 12:23 | NUR ---
CONSULTATION PAGED/CALLED Reason for Consultation: [] TACHYCARDIA Person Who was Notified: [] CELSA Consulting Physician: [] DR MEDLEY Secondary Social Studies Teacher Specialty: [] CARDIOLOGY Ordering Physician: [] DR ENGLAND
--- NOTE | 2020-04-25 12:57 | NUR ---
DR. VILLA IS PAGED FOR PATIENT'S CONDITION. AWAITING CALL BACK.
--- NOTE | 2020-04-25 13:20 | NUR ---
PATIENT IS TAKEN TO THE CT SCAN AND BACK. PATIENT IN NO APPARENT DISTRESS.
--- NOTE | 2020-04-25 14:55 | NUR ---
Tertiary Transfer: ordered : Transfer to higher level of care for replacement of melgar catheter malfunction . [facility] transfer ctr # [phone] and faxed the referral package to fax# . Then f/u with Ludy/admitting dept for financial approval. Ludy is contacting Jazz/JAMILA at [facility] for the authorization. Jassi Morrissey: the process is to get financial approval for ANGELA. Then, he will send the case to medical team to get the md acceptance, The process is UNLIKELY to complete today. He asked to f/u with the ctr in am. 2. [facility] Osiel, transfer ctr # [phone], stated " no capacity to take any patient." 3. [facility]assi Jacob at transfer ctr # [phone]: [facility] is not contracted with the insurance and will need ANGELA from insurance. He will send the transfer form request for further use if still needs to transfer . 4. [facility]assi Schulz, [facility] and [facility] are not contracted 5. [facility] transfer ctr. stated dr. Gao declined to accept the case last night.
[2020-04-25] MEDS ORDERED: NOREPINEPHRINE BITARTRATE 4 MG in NS 246 ML IV PRN (15:00)
[2020-04-25] MEDS ORDERED: NOREPINEPHRINE 4 MG/4 ML VIAL IV ONE (15:12)
--- NOTE | 2020-04-25 16:00 | NUR ---
Communication with [facility], and Dr Ulloa: Late entry: 1100 am: Via phone conference, dr. Ulloa and I called to [facility] re Dr. Kuo declined to see the pt and requesting ANGELA. Per my early phone conversation with dr. Kuo , said "he did not agree with Medical or Medicare rate." [facility] made aware and said , " unable to provide more than Medicare rate". She reached out to dr. Rothman for further decision and is still waiting for his call back with the POC. -- SHARATH Pickett made aware.
[2020-04-25] MEDS ORDERED: NOREPINEPHRINE BITARTRATE IV PRN (17:09)
[2020-04-25] MEDS ORDERED: NS IV PRN (17:09)
--- NOTE | 2020-04-25 18:23 | NUR ---
Dr. Bess is at bedside rounding. He's informed that Levophed is maxed out at 30mcg. No new orders are given.
--- NOTE | 2020-04-25 19:45 | NUR ---
Dr. Ulloa is at bedside attempting to reposition the melgar cath, with RN's assistance.
--- NOTE | 2020-04-25 20:00 | NUR ---
TRACH TO VENT. BLUNTED, DOES NOT FOCUS. RESPONSIVE TO NOXIOUS STIMULI. SUCTIONED TRACH WITH SMALL AMOUNT OF THIN WHITE MUCUS OBTAINED. ORAL CARE GIVEN. CONTRACTED. GT CLAMPED. VIDAL CATH WITH OLIGURIC URINE OUT. BLADDER AREA PRESSED PRN PER DR ENGLAND'S ORDER. ON LEVOPHED AT 30 MCG/MIN. ST.
[2020-04-25] MEDS: HYDROCORTISONE SOD SUCC 100 MG/2 ML VIAL IVP SCH (20:21)
[2020-04-25] MEDS: NACL 0.9% 1,000 ML IV SCH (20:22)
--- NOTE | 2020-04-25 20:24 | NUR ---
CONSULT ORDERING PHYSICIAN: DR. ENGLAND DIALED: [phone] SPOKE TO: BLADIMIR
[2020-04-25] MEDS ORDERED: HYDROCORTISONE SOD SUCC 100 MG/2 ML VIAL ONE (20:36)
[2020-04-25] MEDS ORDERED: LINEZOLID 300 ML IV ONE (21:06)
[2020-04-25] MEDS: LINEZOLID 300 ML IV SCH (21:35)
--- NOTE | 2020-04-25 22:00 | NUR ---
SUCTIONED. TURNED. HS CARE GIVEN.
[2020-04-26] VITALS (32 sets, daily range): BP systolic 90–131
--- NOTE | 2020-04-26 | NUR ---
DOZES ON AND OFF. BLADDER PRESSED, SOME URINE NOTED. SUCTIONED WITH SAME RESULTS. ORAL CARE DONE.
[2020-04-26] MEDS: HYDROCORTISONE SOD SUCC 100 MG/2 ML VIAL IVP SCH ×2 (00:02→06:00)
[2020-04-26] MEDS: PIPERACILLIN/TAZO 3.375/DEX-IS 50 ML IV SCH ×2 (00:02→06:00)
--- NOTE | 2020-04-26 04:00 | NUR ---
UO BETTER. SUCTIONED. TURNED. ORAL CARE DONE.
[2020-04-26] MEDS ORDERED: NOREPINEPHRINE 4 MG/4 ML VIAL IV ONE (04:31)
--- NOTE | 2020-04-26 05:30 | NUR ---
URINE OUTPUT GOOD. DR ENGLAND CALLED IN, UPDATED ON STATUS AND URINE OUTPUT. ORDERED ULTRASOUND GUIDED INSERTION OF SUPRAPUBIC CATHETER BY RADIOLOGIST. TO BE IMPLEMENTED.
[2020-04-26] MEDS: METOPROLOL TARTRATE 50 MG TABLET GT SCH ×4 (06:00→21:21)
--- NOTE | 2020-04-26 06:00 | NUR ---
DIAPHORETIC. 1 LARGE LOOSE WITH SOME FORMED BROWN STOOL DEFECATED. CLEANED. COLE-CARE, VIDAL CARE, BACK CARE, SKIN CARE RENDERED. PARTIAL BATH GIVEN. PARTIAL LINEN CHANGE DONE. DOES NOT ASSIST WITH TURNING. SHIV PROC WELL. UO 500CC.
--- NOTE | 2020-04-26 07:01 | NUR ---
Nutrition Update Greg Scale 10 noted. Pt admitted for Malfunction of Guzmán Catheter Diet: Jevity 1.2 at 60ml/hr, Free Water Flush 100ml Q6H via GT BMI: 25.5 kg/m2 RD to follow per nutrition care standards.
--- NOTE | 2020-04-26 07:05 | NUR ---
Opening Note Patient report received via SBAR from endorsing RN
[2020-04-26] MEDS: LANSOPRAZOLE 30 MG CAPSULE.DR GT SCH (07:23)
[2020-04-26] MEDS: SENNOSIDES/DOCUSATE SODIUM 1 TAB TABLET(SENOKOT-S) GT SCH ×2 (07:31→20:49)
--- NOTE | 2020-04-26 07:50 | NUR ---
Nursing Note Ultrasound department indicated that supra-pubic procedure is not performed by radiologist and a urologist should be consulted instead. informed
[2020-04-26] MEDS ORDERED: NACL 0.9% 1,000 ML IV ONE ×2 (08:30→19:00)
--- NOTE | 2020-04-26 08:30 | NUR ---
ROUND Dr. Taylor in to see patient, physician entered orders
[2020-04-26] MEDS: NON-FORMULARY MEDICATION (Amino Acids/Protein Hydrolys (Pro-Stat Liquid) 30 ML) GT SCH (09:00)
[2020-04-26] MEDS: BACLOFEN 10 MG TABLET GT SCH ×3 (09:13→20:49)
[2020-04-26] MEDS: DIPHENHYDRAMINE HCL 25 MG CAPSULE GT SCH ×2 (09:14→20:49)
[2020-04-26] MEDS: MULTIVITS,CA,MINERALS/IRON/FA 1 TABLET GT SCH (09:14)
[2020-04-26] MEDS: LACTOBACILLUS RHAMNOSUS GG 1 CAP CAPSULE GT SCH ×2 (09:14→20:49)
[2020-04-26] MEDS: LINEZOLID 300 ML IV SCH ×2 (09:15→20:50)
[2020-04-26] MEDS: LevETIRAcetam 500 MG/5 ML UDC ORAL LIQUID PO SCH ×2 (09:15→20:49)
[2020-04-26 09:48] LABS: HEMATOCRIT 34.3 % (36-54); HEMOGLOBIN 11.2 g/dL (14.0-18.0); MEAN CORPUSCULAR HEMOGLOBIN 28 pg (27-31); MEAN CORPUSCULAR HGB CONC 33 % (32-36); MEAN CORPUSCULAR VOLUME 85 fL (79.0-98.0); PLATELET COUNT (AUTO) 315 K/uL (130-430); RED BLOOD CELL COUNT(AUTO) 4.05 MIL/uL (4.2-6.2); RED CELL DISTRIBUTION WIDTH 14.8 % (9.0-15.0); WHITE BLOOD COUNT (AUTO) 28.8 K/uL (4.8-10.8)
[2020-04-26 10:02] LABS: CALCIUM 7.9 mg/dL (8.4-11.0); CREATININE 1.39 mg/dL (0.55-1.30); POTASSIUM 3.6 mmol/L (3.5-5.1)
--- NOTE | 2020-04-26 10:02 | NUR ---
DC PLANNING Called & spoke with Ghanshyam @ [facility] Transfer center, , states discussed with their Urologist & not accepting pt due to not a higher level of care any urologist should be able to see pt. They are cancelling case. Called & spoke with Juan @ [facility], ph [phone], no capacity to take any pt's. Discussed with ICU charge nurse to try Urologist [facility] Albrecht office ph [phone] to see pt here.
[2020-04-26 10:07] LABS: ALBUMIN 2.5 g/dL (3.4-4.8); TOTAL BILIRUBIN 0.6 mg/dL (0.0-1.0)
[2020-04-26 10:08] LABS: ATYPICAL LYMPHOCYTES % 0 % (0-0); BAND % (MANUAL) 12 % (0-6); BASOPHILS % (MANUAL) 0 % (0-2); EOSINOPHILS % (MANUAL) 0 % (0-7); LYMPHOCYTES % (MANUAL) 1 % (20-46); MONOCYTES % (MANUAL) 2 % (0-11)
--- NOTE | 2020-04-26 10:40 | NUR ---
MD DONALD Called Dr. Taylor. New orders received. Addendum: 04/27/20 at 0726 by Tequila Real RN wrong time
--- NOTE | 2020-04-26 11:00 | NUR ---
Round Dr. Fernando in to see patient, physician entered orders
[2020-04-26] MEDS: CEFEPIME 1 GM in D5W 50 ML IV SCH (12:02)
--- NOTE | 2020-04-26 12:18 | NUR ---
DC PLANNING Called & spoke with Prevee @ Dr Vasquez's office, will check to see if can see pt today with ANGELA from administration. Called & spoke with Sara for need for ANGELA, states [facility] agreeable with ANGELA for Medicare rate. Received call from Dr Vasquez, he can come see pt today around 3 or 4pm, with ANGELA from administration. Called & spoke with Sara & will fax ANGELA to Dr Vasquez's office, called & informed charge nurse in ICU. Dr Vasquez, [facility] office [phone] fax [phone]. Addendum: 04/26/20 at 1227 by Nay Shore RN [facility] QUIQUE Aden, ph [phone].
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
--- NOTE | 2020-04-26 13:17 | NUR ---
Dietitian Recommendations *Recommend: restarting EN support when medically appropriate. *Recommend: Jevity 1.2 at 60ml/hr, Navi BID, FWF 100ml Q6H via GT. Provides: 1888 kcal, 85gm protein and 1562ml fluids daily. Meets: 88% of estimated calorie needs and 85% of lower end of estimated protein needs. Please see Nutritional Assessment for details. SENIOR LIVING, RD
--- NOTE | 2020-04-26 14:30 | NUR ---
Round Dr. Vasquez in to see patient as urologist consult. Physician inserted 18 Pashto coud catheter using sterile technique, bright blood noted upon insertion which turned clearer. Patient tolerated well.
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
--- NOTE | 2020-04-26 15:30 | NUR ---
Nursing Note Patient given CHG bath, wound care performed, gowns changed, linens changed. Patient tolerated well
--- NOTE | 2020-04-26 16:17 | NUR ---
DC PLANNING Received call from Jenny @ [facility], ph [phone], updated on pt status, no longer needs transfer to higher loc, Urologist came & saw pt here.
--- NOTE | 2020-04-26 17:00 | NUR ---
Round Dr. Ulloa in to see patient, new orders entered
--- NOTE | 2020-04-26 18:15 | NUR ---
Nursing Note Patient repositioned in bed and given water flush, patient tolerated well
--- NOTE | 2020-04-26 19:18 | NUR ---
Closing Note Patient report given to nightshift RN via SBAR
--- NOTE | 2020-04-26 19:20 | NUR ---
opening note received report from AM nurse using SBAR approach.
--- NOTE | 2020-04-26 20:20 | NUR ---
Patient is on a vent and laying in bed. Bed is locked, alarmed, and at the lowest position. Fall and safety precautions in place. Will continue to monitor frequently.
--- NOTE | 2020-04-26 22:36 | NUR ---
PAGED DR. MEDLEY FOR ORDERS DIALED: [phone] SPOKE TO: SAGAR
--- NOTE | 2020-04-26 22:40 | NUR ---
PAGED Called Dr. Taylor. New orders received.
[2020-04-26] MEDS ORDERED: NOREPINEPHRINE BITARTRATE 4 MG in NS 246 ML IV PRN (22:45)
[2020-04-26] MEDS ORDERED: ALBUMIN HUMAN 25% 100 ML IV ONE ×2 (22:45→23:20)
[2020-04-26] MEDS ORDERED: NS 250 ML IV ONE (22:45)
[2020-04-27] VITALS (36 sets, daily range): BP systolic 87–142
[2020-04-27] MEDS: LORazepam 2 MG/ML VIAL IVP PRN (01:45)
[2020-04-27] MEDS: NACL 0.9% 1,000 ML IV SCH ×5 (01:45→21:45)
[2020-04-27] MEDS: METOPROLOL TARTRATE 50 MG TABLET GT SCH ×3 (05:49→22:07)
[2020-04-27] MEDS: LANSOPRAZOLE 30 MG CAPSULE.DR GT SCH (06:09)
[2020-04-27 06:52] LABS: BASOPHILS % (AUTO) 0.3 % (0.0-2.0); EOSINOPHILS # (AUTO) 0.1 K/uL (0.0-0.4); EOSINOPHILS % (AUTO) 0.9 % (0.0-4.0); HEMATOCRIT 29.2 % (36-54); HEMOGLOBIN 9.6 g/dL (14.0-18.0); LYMPHOCYTES # (AUTO) 1.1 K/uL (1.0-5.5); MEAN CORPUSCULAR HEMOGLOBIN 28 pg (27-31); MEAN CORPUSCULAR HGB CONC 33 % (32-36); MEAN CORPUSCULAR VOLUME 85 fL (79.0-98.0); MONOCYTES # (AUTO) 0.6 K/uL (0.0-1.0); MONOCYTES % (AUTO) 3.7 % (1.7-9.3); NEUTROPHILS # (AUTO) 13.7 K/uL (1.8-7.7); NEUTROPHILS % (AUTO) 88.1 % (40.0-70.0); PLATELET COUNT (AUTO) 240 K/uL (130-430); RED BLOOD CELL COUNT(AUTO) 3.43 MIL/uL (4.2-6.2); RED CELL DISTRIBUTION WIDTH 14.6 % (9.0-15.0); WHITE BLOOD COUNT (AUTO) 15.6 K/uL (4.8-10.8)
--- NOTE | 2020-04-27 07:20 | NUR ---
closing note Endorsed report to AM nurse using SBAR approach.
[2020-04-27 07:38] LABS: ALBUMIN 2.7 g/dL (3.4-4.8); CALCIUM 8.1 mg/dL (8.4-11.0); CREATININE 0.76 mg/dL (0.55-1.30); THYROID STIMULATING HORMONE 0.63 uIu/mL (0.34-4.82); TOTAL BILIRUBIN 0.5 mg/dL (0.0-1.0)
[2020-04-27 07:59] LABS: POTASSIUM 2.6 mmol/L (3.5-5.1)
[2020-04-27] MEDS: DIPHENHYDRAMINE HCL 25 MG CAPSULE GT SCH ×2 (08:11→20:25)
[2020-04-27] MEDS: MULTIVITS,CA,MINERALS/IRON/FA 1 TABLET GT SCH (08:11)
[2020-04-27] MEDS: LACTOBACILLUS RHAMNOSUS GG 1 CAP CAPSULE GT SCH ×2 (08:11→20:26)
[2020-04-27] MEDS: LINEZOLID 300 ML IV SCH (08:13)
[2020-04-27] MEDS: LevETIRAcetam 500 MG/5 ML UDC ORAL LIQUID PO SCH ×2 (08:13→20:25)
[2020-04-27] MEDS: BALSAM PERU/CASTOR OIL 60 GM OINT...G. TP SCH (08:14)
[2020-04-27] MEDS: SENNOSIDES/DOCUSATE SODIUM 1 TAB TABLET(SENOKOT-S) GT SCH ×2 (08:14→20:25)
[2020-04-27] MEDS ORDERED: POTASSIUM CHLORIDE 20 MEQ TAB.PRT.SR PO ONE (08:15)
[2020-04-27] MEDS: BACLOFEN 10 MG TABLET GT SCH ×3 (08:27→20:25)
--- NOTE | 2020-04-27 08:50 | NUR ---
AM ASSESSMENT. PT FOR PICC INSERTION, TIME OUT DONE WITH PICC NURSE. IVF INFUSING NS AT 100 ML PER HR THRU RIGHT HAND IV. PT TRACHED TO VENT. CONTRACTURES TO ALL EXTREMITIES.
--- NOTE | 2020-04-27 09:50 | NUR ---
PICC NEW PICC IN RIGHT UPPER ARM, PT'S ARMS BENT AND STIFF. REPOSITIONED IN BED, PILLOW TO HIS BACK, FEET UP ON PILLOW.
[2020-04-27] MEDS: CEFEPIME 1 GM in D5W 50 ML IV SCH (11:55)
[2020-04-27] MEDS: MORPHINE 4 MG/ML INJ. SYRINGE IVP PRN (11:55)
--- NOTE | 2020-04-27 13:56 | NUR ---
Dietitian Note RD received phone call from pt's primary RN Sun about an order for Prostat 30ml daily under pharmacy category per Dr. Ulloa on April 24, 2020. RD placed order in w/ tube feeding and nutritional supplement will be provided w/ EN regimen. SEE LEVY
--- NOTE | 2020-04-27 14:50 | NUR ---
MD DR ENGLAND IN THE UNIT AND WENT TO EXAMINE PT.
--- NOTE | 2020-04-27 15:30 | NUR ---
WOUND CARE. OLD DRESSINGS FROM RIGHT LOWER LEG AND SACRAL AREA REMOVED. WOUND CLEANSED WITH SALINE, SKIN CARE DONE USING HYDROGEL, MOISTURE BARRIER CREAM, VENELEX OINTMENT, FOAM DRESSING. HEELS ELEVATED AND PLACED ON PILLOW.
[2020-04-27] MEDS ORDERED: POTASSIUM CHLORIDE 20 MEQ/PKT PACKET GT ONE (17:00)
--- NOTE | 2020-04-27 17:10 | NUR ---
MD DR ENGLAND CAME BACK. HE ASKED TO CONTACT DR MUJICA. RETURNED THE CALL WHILE DR ENGLAND STILL IN THE UNIT.
--- NOTE | 2020-04-27 19:20 | NUR ---
Opening Note Received report from AM nurse using SBAR approach.
[2020-04-27] MEDS: MAGNESIUM OXIDE 400 MG TABLET GT SCH (20:26)
[2020-04-27] MEDS: POTASSIUM CHLORIDE 20 MEQ/PKT PACKET GT SCH (20:26)
[2020-04-27] MEDS: AMIKACIN SULFATE 500 MG in D5W 100 ML IV SCH (20:28)
[2020-04-27] MEDS: MULTIVITAMINS,THERAPEUTIC 5 ML UDC GT SCH (20:29)
[2020-04-28] VITALS (29 sets, daily range): BP systolic 99–181
[2020-04-28] MEDS: METOPROLOL TARTRATE 50 MG TABLET GT SCH ×3 (05:51→22:20)
[2020-04-28] MEDS: LANSOPRAZOLE 30 MG CAPSULE.DR GT SCH (06:00)
--- NOTE | 2020-04-28 07:15 | NUR ---
Closing Note Gave report to AM nurse using SBAR approach.
[2020-04-28] MEDS: NACL 0.9% 1,000 ML IV SCH (07:45)
[2020-04-28 07:50] LABS: TOTAL IRON BIND. CAPACITY 220 ug/dL (250-450)
--- NOTE | 2020-04-28 07:50 | NUR ---
MD Rounds Dr. Taylor at bedside for examination. New orders received.
--- NOTE | 2020-04-28 08:00 | NUR ---
Opening Notes Patient received in bed awake but not able to follow commands. Patient connected to ekg monitor tech with NSR. Patient has a tracheostomy and on ventilator with settings PRVC 18, FiO2 65%, tidal volume 500, PEEP 5 with no signs of distress noted. Patient has a MOISES PICC receiving fluids. Patient with g-tube receiving tubefeeding. Patient has a melgar catheter draining urine. Safety and isolation precautions observed. Addendum: 04/28/20 at 0813 by Delmy Braxton RN PRVC 14
[2020-04-28] MEDS: POTASSIUM CHLORIDE 20 MEQ/PKT PACKET GT SCH ×2 (08:37→22:19)
[2020-04-28] MEDS: LACTOBACILLUS RHAMNOSUS GG 1 CAP CAPSULE GT SCH ×2 (08:37→22:19)
[2020-04-28] MEDS: MAGNESIUM OXIDE 400 MG TABLET GT SCH ×2 (08:37→22:19)
[2020-04-28] MEDS: BALSAM PERU/CASTOR OIL 60 GM OINT...G. TP SCH (08:38)
[2020-04-28] MEDS: DIPHENHYDRAMINE HCL 25 MG CAPSULE GT SCH ×2 (08:38→22:19)
[2020-04-28] MEDS: BACLOFEN 10 MG TABLET GT SCH ×3 (08:38→22:19)
[2020-04-28] MEDS: SENNOSIDES/DOCUSATE SODIUM 1 TAB TABLET(SENOKOT-S) GT SCH ×2 (08:38→22:19)
[2020-04-28] MEDS: LevETIRAcetam 500 MG/5 ML UDC ORAL LIQUID PO SCH ×2 (08:38→22:19)
[2020-04-28] MEDS: AMIKACIN SULFATE 500 MG in D5W 100 ML IV SCH ×2 (08:38→22:20)
[2020-04-28] MEDS: MULTIVITAMINS,THERAPEUTIC 5 ML UDC GT SCH ×2 (08:38→22:19)
[2020-04-28 09:40] LABS: HEMOGLOBIN 9.2 g/dL (14.0-18.0); RED BLOOD CELL COUNT(AUTO) 3.27 MIL/uL (4.2-6.2); WHITE BLOOD COUNT (AUTO) 11.7 K/uL (4.8-10.8)
[2020-04-28 09:41] LABS: BASOPHILS % (AUTO) 0.3 % (0.0-2.0); EOSINOPHILS # (AUTO) 0.2 K/uL (0.0-0.4); EOSINOPHILS % (AUTO) 1.3 % (0.0-4.0); HEMATOCRIT 27.8 % (36-54); LYMPHOCYTES # (AUTO) 1.3 K/uL (1.0-5.5); LYMPHOCYTES % (AUTO) 11.3 % (20.5-51.5); MEAN CORPUSCULAR HEMOGLOBIN 28 pg (27-31); MEAN CORPUSCULAR HGB CONC 33 % (32-36); MEAN CORPUSCULAR VOLUME 85 fL (79.0-98.0); MONOCYTES # (AUTO) 0.6 K/uL (0.0-1.0); MONOCYTES % (AUTO) 5.3 % (1.7-9.3); NEUTROPHILS # (AUTO) 9.6 K/uL (1.8-7.7); NEUTROPHILS % (AUTO) 81.8 % (40.0-70.0); PLATELET COUNT (AUTO) 229 K/uL (130-430); RED CELL DISTRIBUTION WIDTH 14.6 % (9.0-15.0)
[2020-04-28 09:57] LABS: CALCIUM 8.3 mg/dL (8.4-11.0); CREATININE 0.51 mg/dL (0.55-1.30); POTASSIUM 3.3 mmol/L (3.5-5.1)
[2020-04-28 10:02] LABS: ALBUMIN 2.6 g/dL (3.4-4.8); TOTAL BILIRUBIN 0.4 mg/dL (0.0-1.0)
[2020-04-28] MEDS: CEFEPIME 1 GM in D5W 50 ML IV SCH (11:13)
--- NOTE | 2020-04-28 11:37 | NUR ---
RT NOTES Found FIO2 @ 0.50, changed done by Dr Jamil per RN
--- NOTE | 2020-04-28 12:00 | NUR ---
RN Rounds Patient resting at this time with no signs of distress noted. Safety and isolation precautions observed.
--- NOTE | 2020-04-28 15:59 | NUR ---
CHG CHG bath performed and linens changed. Patient tolerated well. Patient tolerated well. No signs of distress noted.
--- NOTE | 2020-04-28 16:00 | NUR ---
RN Rounds Patient in distress at this time with oxygen saturation below 90%. Patient tachypneic with increased heart rate. Patient diaphoretic. Condition reported to MD Ulloa who is at bedside. New orders received.
--- NOTE | 2020-04-28 16:10 | NUR ---
RT NOTES Pt. appears to be in respiratory distress, tachypneic, diaphoretic. No improvement noted despite tracheal sxn. ABG drawn@ 1620, @1640 increased FIO2 to 100% per result. @1630 sterile trach care well tolerated. t.t. remains secure and patent.
[2020-04-28] MEDS: MORPHINE 4 MG/ML INJ. SYRINGE IVP PRN ×2 (16:13→18:40)
--- NOTE | 2020-04-28 18:00 | NUR ---
RN Notes Awaiting for tech to take patient for CTA of chest. Also awaiting for pending lab results for heparin drip per MD order.
[2020-04-28] MEDS: KCL 40mEq in D5/0.45NS 1000 mL 1,000 ML IV SCH (18:01)
[2020-04-28] MEDS: methylPREDNISolone SOD SUCC/PF 62.5 MG/ML VIAL IVP SCH (18:01)
[2020-04-28] MEDS ORDERED: IOHEXOL 350 mgI/mL, 150 ML INFUS..BTL IV ONE (18:03)
--- NOTE | 2020-04-28 19:15 | NUR ---
change of shift.pt.presents isolation status;droplet;r/o covid 19.pt.presents trach/vent;settings;prvc.pt.presents picc line;location;rt.bicept. iv fluids infusing.pt.presents g-tube;g-tube feed;jevity infusing.pt.presents melgar cath;intact;patent urine content present. pt.presents seizure history;bedside rails padding present.call light w/in reach of the pt.
--- NOTE | 2020-04-28 19:31 | NUR ---
Closing Notes Patient endorsed to digital photo printer RN using SBAR format. Patient being closely monitored at this time. Safety and isolation precautions enforced.
--- NOTE | 2020-04-28 20:00 | NUR ---
pt.assessed.v/s assessed.pt.presents s.tachycardia/rapid resp-rate.i have administered ativan;1mg ivp.vent setting assessed: assessed;prvc;mode; tv;500,fio2%-2%=35%,a/c;16.p;5.i have attended to the oral/trach care/suction.picc line intact;patent iv fluids infusing.g-tube intact;patent g-tube feed infusing;jevity.melgar cath intact;patent urine content present.pt.assessed for cleanliness.pt.repositioned.per flacc pain mgx;pt.absent facial grimaces/body posturing.pt.presents upper extremities;contracture;spasmatic;rigid.lower extremities paraplegia;flaccid.call light placed w/in reach of the pt.
[2020-04-28] MEDS: LORazepam 2 MG/ML VIAL IVP PRN (20:08)
--- NOTE | 2020-04-28 20:30 | NUR ---
pt.transferred to c-t scan.pt.to submit to ct-scan;chest r/o pulmonary emboli.per md.hakak joseph.
[2020-04-28 20:35] LABS: PROTHROMBIN TIME 10.5 SECS (9.5-12.5)
--- NOTE | 2020-04-28 21:00 | NUR ---
pt.returned to the unit;icu.post ct-scan;chest.to await the results of th study.pt.presents in stable condition.i have attended to the administration:2100p medications;via the g-tube.intact;patent flushed w/out resistance.g-tube feed residuals scant.call light placed w/in reach of the pt.
--- NOTE | 2020-04-28 22:00 | NUR ---
pt.assessed.v/s assessed values w/in normal limits;vent settings assessed pt.tolerating the vent settings/prvc.i have attended to the oral/trach care/suction.picc line intact;patent iv fluids infusing.i have administered amikacin;abx,ivpb.2200p dose.g-tube intact;patent g-tube feed infusing.i have changed the g-tube feed bottle.per protocol.melgar cath intact;patent urine content present.per flacc pain mgx;pt.absent facial grimaces/body posturing.pt.assessed for cleanliness.i have received the results of the ct-chest;-dvt.call placed to ;ordering md.call light placed w/in reach of the pt.
--- NOTE | 2020-04-28 22:07 | NUR ---
PAGEGavi ENGLAND [phone] SPOKE WITH ROULA
[2020-04-29] VITALS (35 sets, daily range): BP systolic 115–149
--- NOTE | 2020-04-29 | NUR ---
pt.assessed.v/s assessed;values w/in normal limits.vent settings assessed.pt.tolerating the vent settings;prvc.i have attended to the oral/trach care/suctioning.picc line intact;patent iv fluids infusing.g-tube intact;patent:g-tube feed infusing;jevity.g-tube residuals scant.melgar cath intact;patent urine content present.pt.assessed for cleanliness.pt.repositioned.call light placed w/in reach of the pt.
[2020-04-29] MEDS: methylPREDNISolone SOD SUCC/PF 62.5 MG/ML VIAL IVP SCH ×5 (00:24→23:19)
--- NOTE | 2020-04-29 02:00 | NUR ---
pt.assessed.v/s assessed;values w/in normal limits.vent settings assessed;pt.tolerating the vent settings/prvc.i have attended to the oral/trach care/suction.picc line intact;patent iv fluids infusing.melgar cath intact;patent urine content present.pt.assessed for cleanliness.pt.repositioned.per flacc;pain mgx;pt.absent facial grimaces/body posturing.call light placed w/in reach of the pt.
--- NOTE | 2020-04-29 04:00 | NUR ---
pt.assessed.v/s assessed values w/in normal limits.vent settings assessed.pt.tolerating vent/settings;prvc mode.i have attended to the oral/trach care,suction.picc line intact;patent iv fluids infusing.g-tube intact;patent g-tube feed infusing.melgar cath intact;patent urine content present. pt.assess for cleanliness.pt.repositioned.call light placed w/in reach of the pt.
[2020-04-29] MEDS: KCL 40mEq in D5/0.45NS 1000 mL 1,000 ML IV SCH ×2 (05:00→13:50)
[2020-04-29] MEDS: METOPROLOL TARTRATE 50 MG TABLET GT SCH ×3 (05:22→20:58)
[2020-04-29 05:56] LABS: BASOPHILS % (AUTO) 0.2 % (0.0-2.0); HEMATOCRIT 28.9 % (36-54); HEMOGLOBIN 9.5 g/dL (14.0-18.0); MEAN CORPUSCULAR HEMOGLOBIN 28 pg (27-31); MEAN CORPUSCULAR HGB CONC 33 % (32-36); MEAN CORPUSCULAR VOLUME 86 fL (79.0-98.0); MONOCYTES # (AUTO) 0.3 K/uL (0.0-1.0); MONOCYTES % (AUTO) 3.5 % (1.7-9.3); NEUTROPHILS # (AUTO) 7.6 K/uL (1.8-7.7); NEUTROPHILS % (AUTO) 85.3 % (40.0-70.0); PLATELET COUNT (AUTO) 207 K/uL (130-430); RED BLOOD CELL COUNT(AUTO) 3.37 MIL/uL (4.2-6.2); RED CELL DISTRIBUTION WIDTH 14.2 % (9.0-15.0)
--- NOTE | 2020-04-29 06:00 | NUR ---
pt.assessed.v/s assessed;values w/in normal limits.pt.tolerating vent settings.i have attended to the oral/trach care;suction. picc line intact;patent iv fluids infusing.g-tube intact; patent g-tube fed infusing.pt.assessed for cleanliness.pt.repositioned. per flacc pain mgx; pt.absent facial grimaces/body posturing.melgar cath intact;patent urine content present.call light placed w/in reach of the pt.
[2020-04-29] MEDS: LANSOPRAZOLE 30 MG CAPSULE.DR GT SCH (06:20)
[2020-04-29 06:41] LABS: ALBUMIN 2.7 g/dL (3.4-4.8); CALCIUM 8.2 mg/dL (8.4-11.0); CREATININE 0.56 mg/dL (0.55-1.30); PHOSPHORUS 3.6 mg/dL (2.7-4.5); TOTAL BILIRUBIN 0.4 mg/dL (0.0-1.0)
[2020-04-29] MEDS ORDERED: HEPARIN SODIUM,PORCINE 3000 UNITS/0.6 ML BOLUS IVP PRN (07:45)
[2020-04-29] MEDS ORDERED: HEPARIN SODIUM,PORCINE 5000 UNITS/ML VIAL IV ONE (07:45)
[2020-04-29] MEDS ORDERED: HEPARIN 25,000 UNITS in 250 ML PREMIX IV PRN (07:45)
[2020-04-29] MEDS ORDERED: HEPARIN SODIUM,PORCINE 2000 UNITS/0.4 ML BOLUS IVP PRN (07:45)
--- NOTE | 2020-04-29 08:00 | NUR ---
Opening Notes Patient received resting in bed with no signs of distress at this time. Patient connected to cardiac technologist with NSR. Patient has a tracheostomy and on ventilator with settings PRVC 16, FiO2 60%, tidal volume 500, PEEP 5. Patient has a MIOSES PICC receiving fluids. Patient has a g-tube receiving tubefeeding. Patient with melgar catheter draining urine. Safety and isolation precautions enforced.
[2020-04-29] MEDS: DIPHENHYDRAMINE HCL 25 MG CAPSULE GT SCH ×2 (08:33→20:55)
[2020-04-29] MEDS: LACTOBACILLUS RHAMNOSUS GG 1 CAP CAPSULE GT SCH ×2 (08:33→20:55)
[2020-04-29] MEDS: BACLOFEN 10 MG TABLET GT SCH ×3 (08:33→20:55)
[2020-04-29] MEDS: MAGNESIUM OXIDE 400 MG TABLET GT SCH ×2 (08:33→20:55)
[2020-04-29] MEDS: LevETIRAcetam 500 MG/5 ML UDC ORAL LIQUID PO SCH ×2 (08:34→20:57)
[2020-04-29] MEDS: MULTIVITAMINS,THERAPEUTIC 5 ML UDC GT SCH ×2 (08:34→20:56)
[2020-04-29] MEDS: POTASSIUM CHLORIDE 20 MEQ/PKT PACKET GT SCH ×2 (08:35→20:55)
[2020-04-29] MEDS: SENNOSIDES/DOCUSATE SODIUM 1 TAB TABLET(SENOKOT-S) GT SCH ×2 (08:35→20:44)
[2020-04-29] MEDS: BALSAM PERU/CASTOR OIL 60 GM OINT...G. TP SCH (08:36)
[2020-04-29] MEDS: AMIKACIN SULFATE 500 MG in D5W 100 ML IV SCH ×2 (08:36→20:56)
--- NOTE | 2020-04-29 10:31 | NUR ---
FiO2 decreased to 60% Addendum: 04/29/20 at 1031 by Marcellus Alba RT Amended: Links added.
[2020-04-29] MEDS: CEFEPIME 1 GM in D5W 50 ML IV SCH (11:30)
--- NOTE | 2020-04-29 11:40 | NUR ---
FiO2 decreased to 50% Addendum: 04/29/20 at 1223 by Marcellus Alba RT Amended: Links added.
[2020-04-29] MEDS: LORazepam 2 MG/ML VIAL IVP PRN (11:53)
--- NOTE | 2020-04-29 12:00 | NUR ---
RN Rounds/ CHG Patient opening eyes and in bed at this time. Patient assisted with care, linens changed. CHG bath performed. Patient tolerated well. Safety and isolation precautions enforced.
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
--- NOTE | 2020-04-29 12:47 | NUR ---
Dietitian Recommendations *Continue Jevity 1.2 at 60ml/hr, Prosource daily, FWF 100ml Q6H via GT. Provides: 1828 kcal, 95gm protein and 1562ml fluids daily. Meets: 85% of estimated calorie needs and 95% of lower end of estimated protein needs. *Continue MVI and Zinc coverage Please see Nutrition F/U for further details. LT, RD
--- NOTE | 2020-04-29 16:00 | NUR ---
RN Rounds Patient resting at this time with no signs of distress. Safety and isolation precautions enforced.
[2020-04-29] MEDS ORDERED: *HEPARIN PER PHARMACY XX PRN (17:00)
--- NOTE | 2020-04-29 19:25 | NUR ---
Opening note Received patient after report from dayshift nurse. Isolation to R/O covid 19 still in progress. MOISES picc in place and fluids infusing; patent. Vent to trach tolerating settings; no signs of respiratory distress noted. Guzmán catheter draining to gravity. Patient was noted to be diaphoretic, which was reported from previous shift. will continue to monitor patient as per unit protocol.
--- NOTE | 2020-04-29 19:28 | NUR ---
Closing Notes Endorsed to fork truck driver RN using SBAR format. Patient in no signs of distress at this time.
[2020-04-29] MEDS: ENOXAPARIN SODIUM 40 MG/0.4 ML SYRINGE SUBCUT SCH (21:00)
[2020-04-30] VITALS (27 sets, daily range): BP systolic 124–154
[2020-04-30] MEDS: METOPROLOL TARTRATE 50 MG TABLET GT SCH ×3 (05:54→22:12)
[2020-04-30] MEDS: methylPREDNISolone SOD SUCC/PF 62.5 MG/ML VIAL IVP SCH ×4 (05:55→23:42)
[2020-04-30] MEDS: LANSOPRAZOLE 30 MG CAPSULE.DR GT SCH (05:55)
[2020-04-30 05:56] LABS: BASOPHILS # (AUTO) 0.1 K/uL (0.0-0.2); BASOPHILS % (AUTO) 0.4 % (0.0-2.0); EOSINOPHILS % (AUTO) 0.1 % (0.0-4.0); HEMATOCRIT 29.4 % (36-54); HEMOGLOBIN 9.7 g/dL (14.0-18.0); LYMPHOCYTES % (AUTO) 13.9 % (20.5-51.5); MEAN CORPUSCULAR HEMOGLOBIN 28 pg (27-31); MEAN CORPUSCULAR HGB CONC 33 % (32-36); MEAN CORPUSCULAR VOLUME 85 fL (79.0-98.0); MONOCYTES # (AUTO) 1.5 K/uL (0.0-1.0); MONOCYTES % (AUTO) 10.6 % (1.7-9.3); NEUTROPHILS # (AUTO) 10.6 K/uL (1.8-7.7); PLATELET COUNT (AUTO) 245 K/uL (130-430); RED BLOOD CELL COUNT(AUTO) 3.47 MIL/uL (4.2-6.2); RED CELL DISTRIBUTION WIDTH 14.4 % (9.0-15.0); WHITE BLOOD COUNT (AUTO) 14.2 K/uL (4.8-10.8)
[2020-04-30 06:16] LABS: ALBUMIN 2.8 g/dL (3.4-4.8); CALCIUM 8.2 mg/dL (8.4-11.0); CREATININE 0.53 mg/dL (0.55-1.30); POTASSIUM 3.9 mmol/L (3.5-5.1); TOTAL BILIRUBIN 0.3 mg/dL (0.0-1.0)
--- NOTE | 2020-04-30 07:33 | NUR ---
Opening Note Patient report received via SBAR from endorsing RN
--- NOTE | 2020-04-30 08:15 | NUR ---
ROUND Dr. Taylor in to see patient, no new orders
[2020-04-30] MEDS: BACLOFEN 10 MG TABLET GT SCH ×3 (08:38→20:46)
[2020-04-30] MEDS: MAGNESIUM OXIDE 400 MG TABLET GT SCH ×2 (08:38→20:46)
[2020-04-30] MEDS: MULTIVITAMINS,THERAPEUTIC 5 ML UDC GT SCH ×2 (08:38→20:49)
[2020-04-30] MEDS: LACTOBACILLUS RHAMNOSUS GG 1 CAP CAPSULE GT SCH ×2 (08:38→20:48)
[2020-04-30] MEDS: POTASSIUM CHLORIDE 20 MEQ/PKT PACKET GT SCH ×2 (08:38→20:46)
[2020-04-30] MEDS: DIPHENHYDRAMINE HCL 25 MG CAPSULE GT SCH ×2 (08:38→20:47)
[2020-04-30] MEDS: LevETIRAcetam 500 MG/5 ML UDC ORAL LIQUID PO SCH ×2 (08:39→20:50)
[2020-04-30] MEDS: AMIKACIN SULFATE 500 MG in D5W 100 ML IV SCH ×2 (08:39→20:47)
[2020-04-30] MEDS: SENNOSIDES/DOCUSATE SODIUM 1 TAB TABLET(SENOKOT-S) GT SCH ×2 (08:39→20:46)
[2020-04-30] MEDS: BALSAM PERU/CASTOR OIL 60 GM OINT...G. TP SCH (08:39)
--- NOTE | 2020-04-30 09:00 | NUR ---
Round Dr. Jamil in to see patient, new orders entered
--- NOTE | 2020-04-30 09:35 | NUR ---
RT NOTES Found FIO2 was changed to 0.[address] Queen
[2020-04-30] MEDS: KCL 40mEq in D5/0.45NS 1000 mL 1,000 ML IV SCH (10:54)
[2020-04-30] MEDS: CEFEPIME 1 GM in D5W 50 ML IV SCH (10:54)
--- NOTE | 2020-04-30 12:00 | NUR ---
Nursing Note Patient had small loose BM, linens change. Patient repositioned and given oral care. Patient tolerated well
--- NOTE | 2020-04-30 13:45 | NUR ---
MD Round Dr. Ulloa in to see patient, orders for transfer to Tele and discharge eval for LTAC entered
--- NOTE | 2020-04-30 14:30 | NUR ---
Round Dr. Fernando in to see patient, no new orders
[2020-04-30] MEDS: CEFTAZIDIME 1 GM in D5W 50 ML IV SCH (15:14)
--- NOTE | 2020-04-30 15:27 | NUR ---
Discharge Planning: DCP faxed pt referral to [facility] [place] (f [phone] p [phone]) DCP to follow up.
--- NOTE | 2020-04-30 17:15 | NUR ---
Nursing Note Patient repositioned and pulled up in bed
--- NOTE | 2020-04-30 17:55 | NUR ---
Transfer Patient Patient transferred via hospital bed, attached to cardiac monitor technician, and accompanied by RN and RT to Tele room 101. Patient report given to receiving RN via SBAR communication. Patient belongings and medication transferred with patient.
--- NOTE | 2020-04-30 18:00 | NUR ---
Received Report Received report from ICU, from [facility] for continuity of care.
[2020-04-30] MEDS: LORazepam 2 MG/ML VIAL IVP PRN (18:02)
--- NOTE | 2020-04-30 18:05 | NUR ---
Ativan 1 mg Patient was given Ativan 1 mg IVP x agitation, tolerated well. Will continue to monitor.
--- NOTE | 2020-04-30 18:29 | NUR ---
Admitting Notes Patient is laying in bed, alert and oriented x1. Arousable with deep stimuli. Patient is nonverbal and contracted. Contracted on all four extremities. Patient is noted with labored breathing, on ventilator. Patient shows no signs and symptoms of pain at this time. Patient is noted diaphoretic. PICC line noted on right upper arm, NS infusing @ 3 ml/hr. Patient remains on contact isolation for ESBL of the urine and pseudomonas. GTUBE site intact, Jevity @ 60 ml/hr. Safety and fall precautions in place. Bed in lowest position, alarm on, locked. Will continue to monitor.
--- NOTE | 2020-04-30 18:59 | NUR ---
Closing Notes Patient is resting in bed, alert and oriented x1. Patient is noted with labored breathing on ventilator. Patient shows no signs and symptoms of pain at this time. Patient is nonverbal. PICC line intact, NS @ 3 ml/hr. GTUBE site intact, Jevity @ 60 ml/hr. Emptied out melgar catheter, 250 cc of clear and yellow urine. Safety and fall precautions in place. Bed in lowest position, alarm on, locked. Will endorse to next nurse.
--- NOTE | 2020-04-30 19:10 | NUR ---
OPENING NOTES received report from day shift rn. pt is lying in bed, no signs of acute distress noted. hob raised. breathing unlabored. vent to trache, pt tolerating well, SPO2 at 100%. iv site is patent, no signs of infiltration or infection noted. ivf and tube feeding infusing well. melgar catheter attached, secured and draining by gravity. seizure pads attached to side rails. scd attached, operating. bed alarm is on. bed at lowest position and locked. call light with pt, unable to demonstrate proper use. isolation precautions maintained. will continue to monitor.
[2020-04-30] MEDS: ENOXAPARIN SODIUM 40 MG/0.4 ML SYRINGE SUBCUT SCH (20:49)
--- NOTE | 2020-04-30 21:00 | NUR ---
ROUNDS pt still in bed, no signs of discomfort noted. fall, seizure, isolation and safety precautions in place. will continue to monitor.
--- NOTE | 2020-04-30 23:00 | NUR ---
ROUNDS pt still in bed, no signs of acute distress noted. safety, isolation, seizure and fall precautions maintained. will continue to monitor.
[2020-05-01 00:10] VITALS: BP_SYST 143
--- NOTE | 2020-05-01 01:00 | NUR ---
ROUNDS pt is resting in bed. no signs of acute distress noted. safety, fall, isolation and seizure precautions maintained. will continue to monitor.
[2020-05-01] MEDS: CEFTAZIDIME 1 GM in D5W 50 ML IV SCH ×2 (02:49→13:32)
--- NOTE | 2020-05-01 03:00 | NUR ---
ROUNDS pt is resting in bed, no signs of discomfort noted. safety, fall, isolation, and seizure precautions maintained. will continue to monitor.
--- NOTE | 2020-05-01 05:00 | NUR ---
ROUNDS pt resting in bed at this time. no signs of discomfort. safety, fall, seizure and isolation precautions in place. will continue to monitor.
[2020-05-01] MEDS: LANSOPRAZOLE 30 MG CAPSULE.DR GT SCH (06:06)
[2020-05-01] MEDS: METOPROLOL TARTRATE 50 MG TABLET GT SCH ×3 (06:07→22:22)
[2020-05-01] MEDS: methylPREDNISolone SOD SUCC/PF 62.5 MG/ML VIAL IVP SCH ×3 (06:07→18:05)
[2020-05-01 06:12] LABS: BASOPHILS % (AUTO) 0.2 % (0.0-2.0); EOSINOPHILS % (AUTO) 0.1 % (0.0-4.0); HEMATOCRIT 32.2 % (36-54); HEMOGLOBIN 10.5 g/dL (14.0-18.0); LYMPHOCYTES # (AUTO) 1.3 K/uL (1.0-5.5); LYMPHOCYTES % (AUTO) 11.4 % (20.5-51.5); MEAN CORPUSCULAR HEMOGLOBIN 28 pg (27-31); MEAN CORPUSCULAR HGB CONC 33 % (32-36); MEAN CORPUSCULAR VOLUME 85 fL (79.0-98.0); MONOCYTES # (AUTO) 1.3 K/uL (0.0-1.0); MONOCYTES % (AUTO) 11.4 % (1.7-9.3); NEUTROPHILS # (AUTO) 8.5 K/uL (1.8-7.7); NEUTROPHILS % (AUTO) 76.9 % (40.0-70.0); PLATELET COUNT (AUTO) 322 K/uL (130-430); RED BLOOD CELL COUNT(AUTO) 3.79 MIL/uL (4.2-6.2); RED CELL DISTRIBUTION WIDTH 14.2 % (9.0-15.0); WHITE BLOOD COUNT (AUTO) 11.1 K/uL (4.8-10.8)
[2020-05-01 06:22] LABS: CALCIUM 8.7 mg/dL (8.4-11.0); CREATININE 0.43 mg/dL (0.55-1.30); POTASSIUM 4.5 mmol/L (3.5-5.1)
--- NOTE | 2020-05-01 06:37 | NUR ---
CLOSING NOTES pt resting in bed at this time. no signs of acute distress noted. breathing is unlabored. hob raised. vent to trache, pt tolerating well, spo2 at 100%. iv site, patent, no signs of infiltration and infection noted. melgar attached, secured and draining by gravity. seizure precaution maintained throughout shift. isolation precaution maintained throughout shift. bed alarm is on. bed at lowest at position and locked. call light with pt. all needs met throughout shift. will continue to monitor until report is given to day shift.
--- NOTE | 2020-05-01 07:41 | NUR ---
OPENS EYES ONLY. ST ON MONITOR. F/C DRAINING YELLOW URINE. GT IS IN PLACE; CALL LIGHT IN PLACE, BED IS LOCKED, WITH ALARM ON, AND AT THE LOWEST POSITION. FALL, SAFETY, ASPIRATION, AND RESPIRATORY PRECAUTIONS WILL BE IN PLACE THROUGHOUT THE SHIFT.
[2020-05-01] MEDS: SENNOSIDES/DOCUSATE SODIUM 1 TAB TABLET(SENOKOT-S) GT SCH ×2 (07:57→20:22)
[2020-05-01] MEDS: LACTOBACILLUS RHAMNOSUS GG 1 CAP CAPSULE GT SCH ×2 (07:57→20:22)
[2020-05-01] MEDS: MAGNESIUM OXIDE 400 MG TABLET GT SCH ×2 (07:57→20:22)
[2020-05-01] MEDS: DIPHENHYDRAMINE HCL 25 MG CAPSULE GT SCH ×2 (07:57→20:22)
[2020-05-01] MEDS: POTASSIUM CHLORIDE 20 MEQ/PKT PACKET GT SCH ×2 (07:57→20:21)
[2020-05-01] MEDS: LevETIRAcetam 500 MG/5 ML UDC ORAL LIQUID PO SCH ×2 (07:58→20:24)
[2020-05-01] MEDS: BACLOFEN 10 MG TABLET GT SCH ×3 (07:58→20:22)
[2020-05-01 08:00] VITALS: BP_SYST 147
[2020-05-01] MEDS: MULTIVIT-MINERALS/FERROUS GLUC 15 ML UDC GT SCH ×2 (08:14→20:23)
[2020-05-01] MEDS: AMIKACIN SULFATE 500 MG in D5W 100 ML IV SCH ×2 (08:14→20:21)
[2020-05-01] MEDS: BALSAM PERU/CASTOR OIL 60 GM OINT...G. TP SCH (08:15)
--- NOTE | 2020-05-01 09:48 | NUR ---
PATIENT HAS A MODERATE BM. TURNED AND REPOSITIONED FOR COMFORT.
--- NOTE | 2020-05-01 12:00 | NUR ---
PATIENT AT REST; TURNED AND REPOSITIONED FOR COMFORT.
[2020-05-01 12:26] VITALS: BP_SYST 149
--- NOTE | 2020-05-01 14:28 | NUR ---
PATIENT HAS A MODERATE BM. HE IS CLEANED, TURNED AND REPOSITIONED FOR COMFORT.
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
--- NOTE | 2020-05-01 15:16 | NUR ---
Dietitian Recommendations *Continue Jevity 1.2 at 60ml/hr, Prosource daily, FWF 100ml Q6H via GT. Provides: 1828 kcal, 95gm protein and 1562ml fluids daily. Meets: 85% of estimated calorie needs and 95% of lower end of estimated protein needs. *Continue MVI and Zinc coverage Please see Nutrition Follow-Up for details. SS,RD
[2020-05-01 16:45] VITALS: BP_SYST 154
--- NOTE | 2020-05-01 16:45 | NUR ---
PATIENT IS RESTING, NO SIGNS OF DISTRESS NOTED.
--- NOTE | 2020-05-01 19:10 | NUR ---
OPENING NOTES received report from day shift rn. pt resting in bed at this time. no signs of acute distress noted. hob raised. vent to trache, pt tolerating well. iv sites patent, no signs of infiltration and infection noted. tube feeding infusing well. seizure pads attached to side rails. melgar attached, secured and draining by gravity. scd attached, operating well. bed alarm is on. bed at lowest position and locked. call light with patient. will continue to monitor.
[2020-05-01 20:00] VITALS: BP_SYST 147
[2020-05-01] MEDS: ENOXAPARIN SODIUM 40 MG/0.4 ML SYRINGE SUBCUT SCH (20:22)
--- NOTE | 2020-05-01 21:00 | NUR ---
ROUNDS pt resting in bed at this time. no signs of acute distress noted. fall, safety, isolation and seizure precautions maintained. will continue to monitor.
--- NOTE | 2020-05-01 23:00 | NUR ---
ROUNDS pt still in bed at this time. no signs of discomfort noted. safety, fall, seizure and isolation precautions maintained. will continue to monitor.
[2020-05-02] MEDS: methylPREDNISolone SOD SUCC/PF 62.5 MG/ML VIAL IVP SCH ×5 (00:04→23:51)
[2020-05-02 00:27] VITALS: BP_SYST 149
--- NOTE | 2020-05-02 01:00 | NUR ---
ROUNDS pt still resting in bed at this time. no signs of acute distress noted. fall, safety, isolation and seizure precautions maintained. will continue to monitor.
--- NOTE | 2020-05-02 03:00 | NUR ---
ROUNDS pt resting in bed at this time. no signs of acute distress noted. hob raised. safety, fall, seizure and isolation precautions maintained. will continue to monitor.
[2020-05-02] MEDS: CEFTAZIDIME 1 GM in D5W 50 ML IV SCH ×2 (03:02→14:01)
--- NOTE | 2020-05-02 05:00 | NUR ---
ROUNDS/WOUNDCARE pt resting in bed, no signs of discomfort noted. hob raised. wound care done, pt tolerated well. safety, fall, safety and isolation precaution maintained. will continue to monitor.
[2020-05-02] MEDS: METOPROLOL TARTRATE 50 MG TABLET GT SCH ×3 (06:03→22:12)
[2020-05-02] MEDS: LANSOPRAZOLE 30 MG CAPSULE.DR GT SCH (06:04)
--- NOTE | 2020-05-02 06:28 | NUR ---
CLOSING NOTES pt resting in bed at this time. no signs of acute distress noted. breathing unlabored. hob raised, vent to trache, pt tolerating well. iv sites patent, no signs of infection and infiltration noted. pt on tube feeding, tolerating well. melgar attached, secured and draining by gravity. seizure pads attached to side rails. scd in place, operating. bed at lowest position and locked. bed alarm is on. call light with pt, unable to demonstrate/verbalize understanding of proper use. all needs met at this time. will continue to monitor until report is given to day shift rn.
[2020-05-02 06:34] LABS: ALBUMIN 3.3 g/dL (3.4-4.8); CALCIUM 8.9 mg/dL (8.4-11.0); CREATININE 0.43 mg/dL (0.55-1.30); POTASSIUM 4.6 mmol/L (3.5-5.1); TOTAL BILIRUBIN 0.2 mg/dL (0.0-1.0)
[2020-05-02 07:06] LABS: BASOPHILS % (AUTO) 0.2 % (0.0-2.0); HEMATOCRIT 35.1 % (36-54); HEMOGLOBIN 11.5 g/dL (14.0-18.0); LYMPHOCYTES # (AUTO) 1.4 K/uL (1.0-5.5); LYMPHOCYTES % (AUTO) 7.9 % (20.5-51.5); MEAN CORPUSCULAR HEMOGLOBIN 28 pg (27-31); MEAN CORPUSCULAR HGB CONC 33 % (32-36); MEAN CORPUSCULAR VOLUME 85 fL (79.0-98.0); MONOCYTES # (AUTO) 1.6 K/uL (0.0-1.0); MONOCYTES % (AUTO) 9.3 % (1.7-9.3); NEUTROPHILS # (AUTO) 14.3 K/uL (1.8-7.7); PLATELET COUNT (AUTO) 439 K/uL (130-430); RED BLOOD CELL COUNT(AUTO) 4.14 MIL/uL (4.2-6.2); RED CELL DISTRIBUTION WIDTH 14.3 % (9.0-15.0); WHITE BLOOD COUNT (AUTO) 17.4 K/uL (4.8-10.8)
[2020-05-02 08:00] VITALS: BP_SYST 153
[2020-05-02] MEDS: DIPHENHYDRAMINE HCL 25 MG CAPSULE GT SCH ×2 (08:26→20:32)
[2020-05-02] MEDS: BACLOFEN 10 MG TABLET GT SCH ×3 (08:26→20:32)
[2020-05-02] MEDS: MAGNESIUM OXIDE 400 MG TABLET GT SCH ×2 (08:26→20:32)
[2020-05-02] MEDS: LACTOBACILLUS RHAMNOSUS GG 1 CAP CAPSULE GT SCH ×2 (08:26→20:32)
[2020-05-02] MEDS: AMIKACIN SULFATE 500 MG in D5W 100 ML IV SCH (08:27)
[2020-05-02] MEDS: MULTIVIT-MINERALS/FERROUS GLUC 15 ML UDC GT SCH ×2 (08:28→21:18)
[2020-05-02] MEDS: BALSAM PERU/CASTOR OIL 60 GM OINT...G. TP SCH (08:31)
[2020-05-02] MEDS: LevETIRAcetam 500 MG/5 ML UDC ORAL LIQUID PO SCH ×2 (08:31→21:18)
[2020-05-02] MEDS: POTASSIUM CHLORIDE 20 MEQ/PKT PACKET GT SCH ×2 (08:57→20:36)
[2020-05-02] MEDS: SENNOSIDES/DOCUSATE SODIUM 1 TAB TABLET(SENOKOT-S) GT SCH ×2 (08:58→20:32)
[2020-05-02 09:07] LABS: NEUTROPHILS % (AUTO) 82.6 % (40.0-70.0)
--- NOTE | 2020-05-02 10:10 | NUR ---
patient is turned and repositioned for comfort.
[2020-05-02] MEDS: PIPERACILLIN/TAZO 3.375/DEX-IS 50 ML IV SCH ×3 (11:02→23:52)
--- NOTE | 2020-05-02 12:00 | NUR ---
patient remains in bed. ST on monitor. No signs of discomfort noted. Safety measures maintained.
[2020-05-02 12:35] VITALS: BP_SYST 138
--- NOTE | 2020-05-02 14:28 | NUR ---
PATIENT IS RESTING; HE IS TURNED AND REPOSITIONED FOR COMFORT. NO SIGNS OF DISTRESS NOTED.
--- NOTE | 2020-05-02 16:47 | NUR ---
SR-ST ON MONITOR. NO SIGNS OF DISTRESS NOTED.
[2020-05-02 17:06] VITALS: BP_SYST 140
--- NOTE | 2020-05-02 18:00 | NUR ---
PATIENT SR-ST ON MONITOR. CURRENT VENT SETTINGS ARE CONTINUED. PATIENT IS TURNED AND REPOSITIONED FOR COMFORT. WILL DELEGATE CARE TO NEXT SHIFT.
--- NOTE | 2020-05-02 19:45 | NUR ---
RECEIVED ON HIGH FOWLERS .QUADRIPLEGIA.BILATERAL UPPER EXTREMITIES CONTRACTED.TOTAL CARE. OPENS BOTH EYES. NON VERBAL.ON VENT VIA TRACH.VENT SETTINGS TV 500,AC 16,FIO2 40%,PEEP 5.ON CONTINUOUS GT FEEDING WITH JEVITY 1.2 @ 60 ML/HR; NO RESIDUAL.VIDAL CATH WITH URINE DRAINAGE WITH SEDIMENTS.OPTIFOAM ON HIS SACRAL, ABDOMEN ,RIGHT LOWER POSTERIOR LEG D/I. REPOSITIONED.
[2020-05-02 20:00] VITALS: BP_SYST 148
--- NOTE | 2020-05-02 20:00 | NUR ---
AFEBRILE.O2 SAT ON FIO2 40% 99%. BP148/88 MMHG.
[2020-05-02] MEDS: ENOXAPARIN SODIUM 40 MG/0.4 ML SYRINGE SUBCUT SCH (20:38)
--- NOTE | 2020-05-02 21:00 | NUR ---
DUE MEDS ADM.
[2020-05-02 22:00] VITALS: BP_SYST 136
--- NOTE | 2020-05-02 22:00 | NUR ---
BP 136/80,HR 111.DUE MED ADM. REPOSITIONED.
--- NOTE | 2020-05-03 | NUR ---
AFEBRILE.V/S STABLE. SUCTIONED BY RT & OBTAINED LARGE AMOUNT OF THICK YELLOWISH SECRETIONS.
[2020-05-03 00:43] VITALS: BP_SYST 116
--- NOTE | 2020-05-03 02:00 | NUR ---
RESTING COMFORTABLY WITH BOTH EYES CLOSED.REPOSITIONED WITH SHEET ROCK FINISHER.
[2020-05-03] MEDS: CEFTAZIDIME 1 GM in D5W 50 ML IV SCH ×2 (02:48→16:00)
--- NOTE | 2020-05-03 04:00 | NUR ---
AM CARE RENDERED WITH EVP MANAGING DIRECTOR.HAD LARGE LOOSE BROWN STOOL.COMPLETE LINEN CHANGED. REPOSITIONED.
[2020-05-03 05:35] VITALS: BP_SYST 130
[2020-05-03] MEDS: methylPREDNISolone SOD SUCC/PF 62.5 MG/ML VIAL IVP SCH ×3 (05:35→18:00)
[2020-05-03] MEDS: METOPROLOL TARTRATE 50 MG TABLET GT SCH ×3 (05:38→22:12)
[2020-05-03] MEDS: PIPERACILLIN/TAZO 3.375/DEX-IS 50 ML IV SCH ×3 (05:39→18:13)
[2020-05-03] MEDS: LANSOPRAZOLE 30 MG CAPSULE.DR GT SCH (06:14)
[2020-05-03 06:25] LABS: CALCIUM 9.2 mg/dL (8.4-11.0); CREATININE 0.54 mg/dL (0.55-1.30); POTASSIUM 4.2 mmol/L (3.5-5.1)
--- NOTE | 2020-05-03 06:45 | NUR ---
ENDORSED CONDITION UNCHANGED.WITH THE SAME VENT SETTINGS.SAFETY MAINTAINED.
[2020-05-03 06:53] LABS: BASOPHILS # (AUTO) 0.1 K/uL (0.0-0.2); BASOPHILS % (AUTO) 0.4 % (0.0-2.0); EOSINOPHILS % (AUTO) 0.1 % (0.0-4.0); HEMATOCRIT 38.3 % (36-54); HEMOGLOBIN 12.6 g/dL (14.0-18.0); LYMPHOCYTES # (AUTO) 1.6 K/uL (1.0-5.5); LYMPHOCYTES % (AUTO) 9.7 % (20.5-51.5); MEAN CORPUSCULAR HEMOGLOBIN 28 pg (27-31); MEAN CORPUSCULAR HGB CONC 33 % (32-36); MEAN CORPUSCULAR VOLUME 85 fL (79.0-98.0); MONOCYTES # (AUTO) 0.8 K/uL (0.0-1.0); MONOCYTES % (AUTO) 4.5 % (1.7-9.3); NEUTROPHILS # (AUTO) 14.3 K/uL (1.8-7.7); NEUTROPHILS % (AUTO) 85.3 % (40.0-70.0); PLATELET COUNT (AUTO) 504 K/uL (130-430); RED CELL DISTRIBUTION WIDTH 14.4 % (9.0-15.0); WHITE BLOOD COUNT (AUTO) 16.8 K/uL (4.8-10.8)
[2020-05-03 08:00] VITALS: BP_SYST 130
[2020-05-03] MEDS: BALSAM PERU/CASTOR OIL 60 GM OINT...G. TP SCH (09:00)
[2020-05-03] MEDS: MULTIVIT-MINERALS/FERROUS GLUC 15 ML UDC GT SCH ×2 (09:36→22:11)
[2020-05-03] MEDS: LACTOBACILLUS RHAMNOSUS GG 1 CAP CAPSULE GT SCH ×2 (09:37→22:06)
[2020-05-03] MEDS: LevETIRAcetam 500 MG/5 ML UDC ORAL LIQUID PO SCH ×2 (09:37→22:07)
[2020-05-03] MEDS: MAGNESIUM OXIDE 400 MG TABLET GT SCH ×2 (09:37→22:07)
[2020-05-03] MEDS: DIPHENHYDRAMINE HCL 25 MG CAPSULE GT SCH ×2 (09:37→22:06)
[2020-05-03] MEDS: SENNOSIDES/DOCUSATE SODIUM 1 TAB TABLET(SENOKOT-S) GT SCH ×2 (09:37→22:07)
[2020-05-03] MEDS: POTASSIUM CHLORIDE 20 MEQ/PKT PACKET GT SCH ×2 (09:37→22:06)
[2020-05-03] MEDS: BACLOFEN 10 MG TABLET GT SCH ×3 (09:37→22:06)
--- NOTE | 2020-05-03 10:43 | NUR ---
PATIENT IN BED RESTING. NO SIGNS OF DISTRESS OR PAIN. GTUBE PATENT. BED IN LOW POSITION. WILL CONTINUE TO MONITOR PATIENT.
--- NOTE | 2020-05-03 11:23 | NUR ---
PATIENT REPOSITIONED BY PANTOGRAPH II ENGRAVER.
--- NOTE | 2020-05-03 12:12 | NUR ---
DC Planning: Attempted to contact pt's parents: Kishore # [phone] and [phone], both numbers went to busy tones after a long period of waiting. >> LVM to JAMILA Alvarado at [facility] # [phone]. Addendum: 05/03/20 at 1322 by Hakeem Maurice RN LTAC: Per Cortney, the pt is accepted clinically, pending authorization from insurance. She will contacting JAMILA Alvarado for the approval.
--- NOTE | 2020-05-03 14:34 | NUR ---
DAILY WOUND CARE COMPLETED.
[2020-05-03 16:17] VITALS: BP_SYST 119
[2020-05-03 18:15] VITALS: BP_SYST 143
--- NOTE | 2020-05-03 18:27 | NUR ---
PATIENT IS IN BED RESTING. NO SIGNS OF DISTRESS OR PAIN. PATIENT ALERT TO LIGHT STIMULI. ALL CARE NEEDS MET. WILL GIVE REPORT TO NIGHT NURSE.
[2020-05-03 20:00] VITALS: BP_SYST 160
--- NOTE | 2020-05-03 20:00 | NUR ---
A/A/O X1.QUADRIPLEGIA.BILATERAL UPPER EXTREMITIES CONTRACTED.HOB ELEVATED 35 DEGREES.ON CONTINUOUS GT FEEDING WITH JEVITY 1.2 @ 60 ML/HR INFUSING WELL;NO RESIDUAL.VIDAL CATH DRAINAGE WITH SEDIMENTS,YELLOW IN COLOR.OPTIFOAM DRESSING TO SACRAL AREA,ABDOMEN,RIGHT LOWER LEG D/I.TOTAL CARE.REPOSITIONED. ON VENT VIA TRACH;VENT SETTINGS AC 16,TV 500,FIO2 40%,PEEP 5. O2 SAT 99%.NO INDICATION OF PAIN NOTED.
--- NOTE | 2020-05-03 22:00 | NUR ---
DUE MED ADM. REPOSITIONED WITH OXYHYDROGEN WELDER.
[2020-05-03] MEDS: ENOXAPARIN SODIUM 40 MG/0.4 ML SYRINGE SUBCUT SCH (22:09)
[2020-05-04] VITALS (7 sets, daily range): BP systolic 111–161
--- NOTE | 2020-05-04 | NUR ---
AFEBRILE.V/S STABLE.TELE SHOWED SR.DUE MED ADM.
[2020-05-04] MEDS: methylPREDNISolone SOD SUCC/PF 62.5 MG/ML VIAL IVP SCH ×3 (00:30→20:59)
[2020-05-04] MEDS: PIPERACILLIN/TAZO 3.375/DEX-IS 50 ML IV SCH ×4 (00:31→18:39)
--- NOTE | 2020-05-04 02:00 | NUR ---
RESTING COMFORTABLY O2 SAT 100%.
[2020-05-04] MEDS: CEFTAZIDIME 1 GM in D5W 50 ML IV SCH ×2 (03:22→14:55)
--- NOTE | 2020-05-04 04:00 | NUR ---
AM CARE RENDERED WITH TRAFFIC CIRCUIT ENGINEER.REPOSITIONED.O2 SAT ON FIO2 40% 100%.NO INDICATION OF PAIN NOTED.
[2020-05-04] MEDS: METOPROLOL TARTRATE 50 MG TABLET GT SCH ×3 (06:16→21:17)
[2020-05-04] MEDS: LANSOPRAZOLE 30 MG CAPSULE.DR GT SCH (06:17)
--- NOTE | 2020-05-04 06:49 | NUR ---
ENDORSED CONDITION UNCHANGED.VENT SETTINGS THE SAME.GT FEEDING INFUSING WELL.SAFETY MAINTAINED.
--- NOTE | 2020-05-04 08:05 | NUR ---
INITIAL ROUNDS Received pt awake, non-verbal on vent via trach, vent settings verified. Pt on contact isolation for ESBL of the urine, ENVIRONMENTAL SERVICES WORKER of the sputum. Pt on air mattress, pt repositioned with pillow support and heels off-loaded for skin care-noted dressing to sacral area clean, dry and intact. Jevity infusing at ordered rate via g-tube with no residual noted. Guzmán draining to gravity with yellow urine. HOB elevated for aspiration precautions. Oral care provided. Side rails up x3, bed alarm on for safety.
[2020-05-04] MEDS: DIPHENHYDRAMINE HCL 25 MG CAPSULE GT SCH ×2 (10:36→20:58)
[2020-05-04] MEDS: BACLOFEN 10 MG TABLET GT SCH ×3 (10:36→20:58)
[2020-05-04] MEDS: SENNOSIDES/DOCUSATE SODIUM 1 TAB TABLET(SENOKOT-S) GT SCH ×2 (10:37→20:59)
[2020-05-04] MEDS: LACTOBACILLUS RHAMNOSUS GG 1 CAP CAPSULE GT SCH ×2 (10:37→20:58)
[2020-05-04] MEDS: MULTIVIT-MINERALS/FERROUS GLUC 15 ML UDC GT SCH ×2 (10:37→20:58)
[2020-05-04] MEDS: MAGNESIUM OXIDE 400 MG TABLET GT SCH ×2 (10:37→20:58)
[2020-05-04] MEDS: POTASSIUM CHLORIDE 20 MEQ/PKT PACKET GT SCH ×2 (10:39→20:58)
[2020-05-04] MEDS: LevETIRAcetam 500 MG/5 ML UDC ORAL LIQUID PO SCH ×2 (10:39→21:00)
--- NOTE | 2020-05-04 11:05 | NUR ---
[facility] ipa: s/w jamila Alvarado # [phone] requesting for LTAC authorization. I updated clinical status : on IV Zosyn, IV Fortaz, WBC 16.8, ESBL UA, MDR PNA, weaning off IV Solumedrol. The pt is chronic trach-vent, quadriplegia, comatose , PEG , f/C, PICC line. Per Jenny, she does not think that sending the pt to LTAC will improve clinically but she will consult with her medical team for the approval decision. She will call back in the afternoon. Meanwhile, PRASANTH Flores is sending the referral package to [facility] for dcp to transfer back. JAMILA will f/u. Addendum: 05/04/20 at 1531 by Hakeem Maurice RN F/U with Jenny, the pt is not authorized for LTAC. Dr Ulloa made aware, he ordered to transfer pt back to [facility]. The order is faxed to Jenny at fax # [phone]. She will call back to give authorization for ambulance transfer. -- PRASANTH Flores made aware.
--- NOTE | 2020-05-04 11:54 | NUR ---
ROUNDS Pt resting in bed with no s/s resp distress, no s/s pain or discomfort. Pt repositioned with pillow support and heels off-loaded. Oral care provided. All precautions remain in place.
[2020-05-04] MEDS: BALSAM PERU/CASTOR OIL 60 GM OINT...G. TP SCH (12:57)
--- NOTE | 2020-05-04 13:00 | NUR ---
RT NOTES- 28%FIO2 REPORTED ABG RESULTS TO . PER DECREASED FIO2 TO 28%FIO2 AT THIS TIME. RN JUAN PABLO AT BEDSIDE IS AWARE OF CHANGE. WILL CONTINUE MONITORING.
--- NOTE | 2020-05-04 13:05 | NUR ---
WOUND CARE *Sacral wound: dressing removed, area cleansed with normal saline, Venelex applied to wound bed, moisture barrier cream applied to periwound, covered with sacral foam dressing. Wound bed is 80% red tissue, 20% pink tissue, no odor, minimal drainage, no necrotic tissue, periwound intact. Wound measures 4 cm x 9 cm. Right buttock: area cleansed with normal saline, Venelex applied to wound bed, covered with foam dressing. Wound bed is 90% red tissue, 10% pink tissue, no odor, no necrotic tissue. Wound measures 0.3 cm x 0.4 cm.
--- NOTE | 2020-05-04 13:44 | NUR ---
Discharge Planning: DCP faxed pt referral to [facility] ([phone]) DCP to follow up. Addendum: 05/04/20 at 1632 by Sandra Wei DP DCP spoke to Ashvin at [facility] ([phone]) patient will go to room 47A DCP made nurse aware. Jassi Alvarado at [facility] IPA [phone] use [employer] [phone] once a DC order is given. BEFORE TRANSPORT CAN BE SET UP TH DC ORDER NEEDS TO BE FAXED TO [phone]
--- NOTE | 2020-05-04 15:32 | NUR ---
LTAC : F/U with Jenny, the pt is not authorized for LTAC. Dr Ulloa made aware, he ordered to transfer pt back to [facility]. The order is faxed to Jenny at fax # [phone]. She will call back to give authorization for ambulance transfer. -- PRASANTH Flores made aware.
--- NOTE | 2020-05-04 18:15 | NUR ---
NO BED TIEN Called [facility] and spoke with Mary EARLYpanelboard assembler nurse and she stated that there is no bed for tien. I informed her that our piano case maker stated that pt assigned to room 47A-Mary stated she does not have the room yet.Mary stated to call Ashvin piano case maker at 0900 at [phone]. industrial arts public [employer] teacher informed.
--- NOTE | 2020-05-04 18:50 | NUR ---
WOUND CARE *Right lower leg, lateral-dressing removed, area cleansed with normal saline, Venelex applied to wound bed, moisture barrier cream applied to periwound, covered with a foam dressing. Wound measured 1.7 cm x 1.3 cm, wound is 70% pink tissue, 20% red tissue and 10% black tissue on the edges, no odor, no drainage. Mid Abd dressing removed, area cleansed with normal saline, Venelex applied to wound bed, covered with foam dressing. Wound measures 2.3 cm x 1.4 cm, wound has 80% pink tissue and 20% red tissue, no odor, no drainage. G-tube dressing changed, area cleansed with normal saline, skin intact. Pt tolerated well.
--- NOTE | 2020-05-04 19:23 | NUR ---
CLOSING NOTE Pt resting quietly in bed with no s/s resp distress, no s/s pain or discomfort. IVPB infusing well to MOISES PICC line at ordered rate. New bottle of Jevity now infusing well via G-Tube at ordered rate. Aspiration, skin and safety precautions remain in place. Contact isolation precautions maintained throughout shift. Endorsed to hourly shift RN regarding discharge tomorrow and that the PICC dressing may need to be changed.
--- NOTE | 2020-05-04 20:00 | NUR ---
A/A/O X1.OPENS BOTH EYES.APHASIC.TOTAL CARE.QUADRIPLEGIA.ON VENT VIA TRACH.VENT SETTINGS AC 16,TV 500.PEEP 5, FIO2 28%. HOB ELEVATED 35 DEGREES.ON CONTINUOUS GT FEEDING WITH JEVITY 1.2 @ 60 ML/HR.NO RESIDUAL.AFEBRILE. BP 161/90 MM HG.
[2020-05-04] MEDS: ENOXAPARIN SODIUM 40 MG/0.4 ML SYRINGE SUBCUT SCH (21:00)
--- NOTE | 2020-05-04 22:00 | NUR ---
DUE MED ADM. TELE SHOWED SR. REPOSITIONED WITH BEAM BUILDER.
[2020-05-05] VITALS: BP_SYST 126
--- NOTE | 2020-05-05 | NUR ---
AFEBRILE.TELE SHOWED SB.REPOSITIONED.
[2020-05-05] MEDS: PIPERACILLIN/TAZO 3.375/DEX-IS 50 ML IV SCH ×2 (00:21→05:53)
--- NOTE | 2020-05-05 02:00 | NUR ---
RESTING COMFORTABLY IN NO ACUTE DISTRESS.
[2020-05-05] MEDS: CEFTAZIDIME 1 GM in D5W 50 ML IV SCH (03:04)
--- NOTE | 2020-05-05 04:00 | NUR ---
INCONTINENT OF BM.AM CARE RENDERED WITH AUTO BRAKE TECHNICIAN & REPOSITIONED.
[2020-05-05] MEDS: METOPROLOL TARTRATE 50 MG TABLET GT SCH ×2 (05:55→14:37)
[2020-05-05] MEDS: LANSOPRAZOLE 30 MG CAPSULE.DR GT SCH (06:07)
[2020-05-05 06:14] LABS: BASOPHILS % (AUTO) 0.1 % (0.0-2.0); EOSINOPHILS % (AUTO) 0.1 % (0.0-4.0); HEMATOCRIT 39.2 % (36-54); HEMOGLOBIN 12.9 g/dL (14.0-18.0); LYMPHOCYTES # (AUTO) 2.1 K/uL (1.0-5.5); LYMPHOCYTES % (AUTO) 11.5 % (20.5-51.5); MEAN CORPUSCULAR HEMOGLOBIN 28 pg (27-31); MEAN CORPUSCULAR HGB CONC 33 % (32-36); MEAN CORPUSCULAR VOLUME 85 fL (79.0-98.0); MONOCYTES # (AUTO) 1.3 K/uL (0.0-1.0); MONOCYTES % (AUTO) 7.4 % (1.7-9.3); NEUTROPHILS # (AUTO) 14.6 K/uL (1.8-7.7); NEUTROPHILS % (AUTO) 80.9 % (40.0-70.0); PLATELET COUNT (AUTO) 541 K/uL (130-430); RED BLOOD CELL COUNT(AUTO) 4.63 MIL/uL (4.2-6.2); RED CELL DISTRIBUTION WIDTH 14.7 % (9.0-15.0)
[2020-05-05 06:32] LABS: CREATININE 0.55 mg/dL (0.55-1.30); POTASSIUM 4.2 mmol/L (3.5-5.1)
--- NOTE | 2020-05-05 06:50 | NUR ---
ENDORSED CONDITION UNCHANGED WITH THE SAME VENT SETTINGS.SAFETY MAINTAINED.
--- NOTE | 2020-05-05 07:35 | NUR ---
OPENING NOTE Patient resting in the bed. No acute distress. Trach intact to vent AC=16, BZ=930, FiO2=28%, PEEP=5. HOB elevated. GT intact, on Jevity 1.2 at 60ml/hr. Skin warm and dry to touch. PICC line intact to MOISES, no redness, no swelling, patent. Covered with clean and dry transparent dressing. F/C intact, drain gravity. On isolation. Safety measure maintained. Call light within reached. Bed locked in low position, side rails up, bed alarm on. Will continue to monitor.
[2020-05-05 08:00] VITALS: BP_SYST 131
[2020-05-05] MEDS: BALSAM PERU/CASTOR OIL 60 GM OINT...G. TP SCH (08:57)
[2020-05-05] MEDS: MULTIVIT-MINERALS/FERROUS GLUC 15 ML UDC GT SCH (08:58)
[2020-05-05] MEDS: methylPREDNISolone SOD SUCC/PF 62.5 MG/ML VIAL IVP SCH (08:58)
[2020-05-05] MEDS: LevETIRAcetam 500 MG/5 ML UDC ORAL LIQUID PO SCH (08:58)
[2020-05-05] MEDS: POTASSIUM CHLORIDE 20 MEQ/PKT PACKET GT SCH (08:59)
[2020-05-05] MEDS: BACLOFEN 10 MG TABLET GT SCH ×2 (08:59→14:35)
[2020-05-05] MEDS: SENNOSIDES/DOCUSATE SODIUM 1 TAB TABLET(SENOKOT-S) GT SCH (08:59)
[2020-05-05] MEDS: MAGNESIUM OXIDE 400 MG TABLET GT SCH (08:59)
[2020-05-05] MEDS: LACTOBACILLUS RHAMNOSUS GG 1 CAP CAPSULE GT SCH (08:59)
[2020-05-05] MEDS: DIPHENHYDRAMINE HCL 25 MG CAPSULE GT SCH (08:59)
--- NOTE | 2020-05-05 09:05 | NUR ---
AM SCHEDULE MED GIVEN Patient resting in the bed. No acute distress. Trach intact to vent. HOB elevated. GT intact, patent, no residual. Continue on GT feeding, tolerated well. PICC line intact. F/C intact, drain gravity. Isolation maintained. Safety measure maintained. Bed locked in low position, padded side rails up, bed alarm on. Call light within reached. Continue to monitor.
--- NOTE | 2020-05-05 10:48 | NUR ---
Discharge Planning: PRASANTH faxed udated pt clinicals to [facility] ([phone]) patient will go to room 47B. Addendum: 05/05/20 at 1139 by Sandra Wei DP [facility] ([phone]) rm 47B, transportation arrange through [employer] [phone] Trip# [id number] with [employer] P/U between 3:30 and;00pm. PRASANTH made charge nurse aware.
--- NOTE | 2020-05-05 10:55 | NUR ---
WOUND CARE DONE Patient resting in the bed. No acute distress. Trach intact to vent. Wound care done, patient tolerated procedure well. F/C intact, drain gravity. Isolation maintained. Seizure precaution maintained. Call light within reached. Bed locked in low position, padded side rails up, bed alarm on. Continue to monitor.
[2020-05-05 11:28] VITALS: BP_SYST 125
--- NOTE | 2020-05-05 11:32 | NUR ---
REPORT GIVEN Called [facility], report given to SHARATH Merlos.
--- NOTE | 2020-05-05 12:03 | NUR ---
CALLED PATIENT'S MOTHER EBONY PATRICK REGARDING THE DISCHARGE, NO ANSWER, LEFT MESSAGE.
--- NOTE | 2020-05-05 12:30 | NUR ---
SEEN AND EXAMINED BY GEMA NASH WITH ORDER OF DC IV ANTIBIOTIC AND CONTINUE CONTACT ISOLATION FOR 7 DAYS.
--- NOTE | 2020-05-05 13:25 | NUR ---
CALLED PATRICK ALICEA, SPOKE WITH YUSUF TO UPDATE THE DISCHARGE IV ANTIBIOTIC D/C BY ID DOCTOR AND CONTINUE CONTACT ISOLATION FOR 7 DAYS.
[2020-05-05 14:15] VITALS: BP_SYST 125
--- NOTE | 2020-05-05 14:38 | NUR ---
CALLED AND INFORMED TO CLEMENT JUAN, DR. HUGGINS D/C THE IV ANTIBIOTIC AND CONTINUE CONTACT ISOLATION FOR [address] ENGLAND STATED "JUST D/C ANTIBIOTIC".
[2020-05-05 15:56] VITALS: BP_SYST 133
--- NOTE | 2020-05-05 16:00 | NUR ---
TURNED AND REPOSITIONED Patient resting in the bed. No acute distress. Trach intact to vent. Gt intact, continue on Gt feeding, tolerated well. HOB elevated. F/C intact, drain gravity. Isolation maintained. Turned and repositioned. Safety measure maintained. Call light within reached. Bed locked in low position, padded side rails up, bed alarm on. Continue to monitor.
--- NOTE | 2020-05-05 16:20 | NUR ---
SEEN AND EXAMINED BY LIZETTE LEHMAN.
--- NOTE | 2020-05-05 16:45 | NUR ---
SEEN AND EXAMINED BY LOCO RED.
--- NOTE | 2020-05-05 17:00 | NUR ---
SEEN AND EXAMINED BY DR. ENGLAND [facility].
--- NOTE | 2020-05-05 17:45 | NUR ---
PT TRANSFERRED Report given to SHARATH Merlos at 1132. Transfer packet with Transfer Orders and Medication Reconciliation form given to EMT with report. Exitcare provided. [facility] ID band removed, replaced with ID band with pt's name and . PICC line intact to MOISES, no redness, no swelling, covered with clean and dry transparent dressing. Trach intact with portable vent. Patient has no belongings. Patient left floor via gurney escorted by EMT in no distress.
== END 2020-05-05 17:45 | DRG 720 ==
LOC: SED 16:36 → STU 20:22 → EEVIPCON 20:22 → STU 21:05 → SIC 04-25 00:54 → STU 04-30 17:47
PROVIDERS: ADMIT Internal Medicine; ATTEND Internal Medicine
PROC: 5A1955Z Respiratory Ventilation, Greater than 96 Consecutive Hours (ICD-10-PCS; principal; 2020-04-24)
PROC: 02HV33Z Insertion of Infusion Device into Superior Vena Cava, Percutaneous Approach (ICD-10-PCS; 2020-04-27)
PROC: B548ZZA Ultrasonography of Superior Vena Cava, Guidance (ICD-10-PCS; 2020-04-27)
DX: A41.9 Sepsis, unspecified organism (principal); J96.21 Acute and chronic respiratory failure with hypoxia; R65.21 Severe sepsis with septic shock; Z99.11 Dependence on respirator [ventilator] status; J15.1 Pneumonia due to Pseudomonas; E44.0 Moderate protein-calorie malnutrition; G82.50 Quadriplegia, unspecified; Z93.0 Tracheostomy status; G93.1 Anoxic brain damage, not elsewhere classified; N17.9 Acute kidney failure, unspecified; Z93.1 Gastrostomy status; R40.3 Persistent vegetative state; N13.9 Obstructive and reflux uropathy, unspecified; B96.1 Klebsiella pneumoniae [K. pneumoniae] as the cause of diseases classified elsewhere; E87.1 Hypo-osmolality and hyponatremia; E87.6 Hypokalemia; G93.41 Metabolic encephalopathy; N18.9 Chronic kidney disease, unspecified; N30.90 Cystitis, unspecified without hematuria; I12.9 Hypertensive chronic kidney disease with stage 1 through stage 4 chronic kidney disease, or unspecified chronic kidney disease; N20.0 Calculus of kidney; K59.00 Constipation, unspecified; K92.2 Gastrointestinal hemorrhage, unspecified; N31.9 Neuromuscular dysfunction of bladder, unspecified; Z16.24 Resistance to multiple antibiotics; N21.0 Calculus in bladder; N32.89 Other specified disorders of bladder; T83.098A Other mechanical complication of other urinary catheter, initial encounter; Y84.6 Urinary catheterization as the cause of abnormal reaction of the patient, or of later complication, without mention of misadventure at the time of the procedure; Y92.128 Other place in nursing home as the place of occurrence of the external cause; Z68.23 Body mass index [BMI] 23.0-23.9, adult; Z03.818 Encounter for observation for suspected exposure to other biological agents ruled out; Z79.899 Other long term (current) drug therapy; Z87.01 Personal history of pneumonia (recurrent); I25.2 Old myocardial infarction
CPT/HCPCS: 36415; 36600; 71045; 71250-TC; 71275; 80048; 80053; 80061; 80150; 81000-TC; 82803-TC; 82962; 83540-TC; 83550-TC; 83605; 83690-TC; 83735-TC; 83880; 84100-TC; 84443-TC; 84550-TC; 85007; 85025; 85027; 85610-TC; 85730-TC; 87040-TC; 87070-TC; 87081; 87086; 87186-TC; 87205-TC; 93005; 93306; 94002; 94003; 94640; 94760; 96365; 96367; 99285; C1751; G0378; J0278; J0692; J0696; J0713; J1644; J1650; J1720; J2020; J2060; J2270; J2405; J2543; J2930; J7030; J7050; J7060; J7120; P9046; Q0163; Q9967; U0003-CS

== ENCOUNTER 2020-07-09 21:54 | Inpatient (IN) | payer MEDICAID, SELFPAY ==
[~2020-07-09] VITALS: Ht 167.6 cm; Wt 64.4 kg
[~2020-07-09 21:54] MED LIST changes: +ALBU8.5H8 INH; +AMIN30LI2 GT; -ASCO500S10 GT; +BACL10TA GT; -CEFE1PIG3 IV; +DIPH25CA83 GT; +LACT1CAP89 GT; -LEVE100S GT; +LEVE100S PO; +LORA-258 GT; -LOVI40 SQ; +METO100T14 GT; +OMEP40CA13 GT; +POLY17PO4 GT; -PROP10TA10 GT; -PSYL1POW GT; -RIVA10TA GT; +SENN-278 GT; +TRAM-350 PO; +TRAM100T34 GT; -UTI STAT GT
[2020-07-09 22:00] VITALS: BP_SYST 128
[2020-07-09 23:52] LABS: MEAN CORPUSCULAR HEMOGLOBIN 26 pg (27-31)
[2020-07-09] MEDS ORDERED: UTI-STAT GT (23:55)
[2020-07-09] MEDS ORDERED: MAGN400T10 GT (23:55)
[2020-07-09] MEDS ORDERED: POTA20TA83 GT (23:55)
[2020-07-09] MEDS ORDERED: ASCO500S10 GT (23:55)
[2020-07-09] MEDS ORDERED: ACID1CAP2 GT (23:55)
[2020-07-09] MEDS ORDERED: LOVI40 SQ (23:55)
[2020-07-09 23:59] LABS: HEMATOCRIT 34.2 % (36-54); MEAN CORPUSCULAR HGB CONC 32 % (32-36); MEAN CORPUSCULAR VOLUME 81 fL (79.0-98.0); PLATELET COUNT (AUTO) 445 K/uL (130-430); RED BLOOD CELL COUNT(AUTO) 4.24 MIL/uL (4.2-6.2); RED CELL DISTRIBUTION WIDTH 15.1 % (9.0-15.0); WHITE BLOOD COUNT (AUTO) 18.7 K/uL (4.8-10.8)
[2020-07-10] VITALS (27 sets, daily range): BP systolic 102–150
[2020-07-10 00:11] LABS: CALCIUM 9.8 mg/dL (8.4-11.0); CREATININE 0.76 mg/dL (0.55-1.30); POTASSIUM 4.7 mmol/L (3.5-5.1)
[2020-07-10 00:16] LABS: ALBUMIN 2.7 g/dL (3.4-4.8); TOTAL BILIRUBIN 0.2 mg/dL (0.0-1.0)
[2020-07-10 00:17] LABS: INR 1.1 (0.80-1.20); PROTHROMBIN TIME 10.7 SECS (9.5-12.5)
[2020-07-10 00:45] LABS: ATYPICAL LYMPHOCYTES % 0 % (0-0); BAND % (MANUAL) 1 % (0-6); BASOPHILS % (MANUAL) 0 % (0-2); EOSINOPHILS % (MANUAL) 0 % (0-7); LYMPHOCYTES % (MANUAL) 5 % (20-46); MONOCYTES % (MANUAL) 6 % (0-11)
[2020-07-10] MEDS: NACL 0.9% 1,000 ML IV ONE ×2 (00:56→01:46)
[2020-07-10] MEDS ORDERED: LIDOCAINE/EPI 1% 1:100000 20 ML VIAL INJ ONE (01:00)
[2020-07-10] MEDS ORDERED: NACL 0.9% 1,000 ML IV ONE (02:28)
[2020-07-10] MEDS ORDERED: LEVOFLOXACIN 500 MG/D5W 100 ML IV ONE (02:30)
[2020-07-10 03:32] LABS: BILIRUBIN,URINE NEGATIVE (NEGATIVE); BLOOD, URINE 3+ (NEGATIVE); CLARITY/URINE CLOUDY (CLEAR); COLOR,URINE AMBER (YELLOW); GLUCOSE,URINE NEGATIVE (NEGATIVE); KETONES,URINE NEGATIVE (NEGATIVE); LEUKOCYTE ESTERASE ,URINE 3+ (NEGATIVE); PH,URINE 6.5 (5.0-8.0); PROTEIN URINE 1+ (NEGATIVE)
[2020-07-10 03:33] LABS: NITRITE, URINE POSITIVE (NEGATIVE); UROBILINOGEN,URINE 0.2 (0.2-1.0)
[2020-07-10 03:34] LABS: RBC,URINE 20-50 /HPF (0-3)
[2020-07-10 03:35] LABS: BACTERIA,URINE MANY /HPF (None Seen); WBC,URINE >100 /HPF (0-3)
[2020-07-10] MEDS: D5/0.45 NS 1,000 ML IV SCH ×3 (04:55→23:30)
[2020-07-10] MEDS ORDERED: PIPERACILLIN/TAZOBACTAM 3.375 GM/VIAL (ZOSYN) IV ONE (05:50)
[2020-07-10] MEDS: PIPERACILLIN/TAZO 3.375/DEX-IS 50 ML IV SCH ×3 (05:53→21:25)
[2020-07-10 06:49] LABS: BASOPHILS % (AUTO) 0.2 % (0.0-2.0); EOSINOPHILS % (AUTO) 0.1 % (0.0-4.0); HEMATOCRIT 28.1 % (36-54); HEMOGLOBIN 8.8 g/dL (14.0-18.0); LYMPHOCYTES % (AUTO) 6.8 % (20.5-51.5); MEAN CORPUSCULAR HEMOGLOBIN 26 pg (27-31); MEAN CORPUSCULAR HGB CONC 31 % (32-36); MEAN CORPUSCULAR VOLUME 83 fL (79.0-98.0); MONOCYTES # (AUTO) 0.5 K/uL (0.0-1.0); MONOCYTES % (AUTO) 3.8 % (1.7-9.3); NEUTROPHILS # (AUTO) 12.6 K/uL (1.8-7.7); NEUTROPHILS % (AUTO) 89.1 % (40.0-70.0); PLATELET COUNT (AUTO) 290 K/uL (130-430); RED CELL DISTRIBUTION WIDTH 15.2 % (9.0-15.0); WHITE BLOOD COUNT (AUTO) 14.1 K/uL (4.8-10.8)
[2020-07-10 06:58] LABS: ALBUMIN 2.5 g/dL (3.4-4.8); CALCIUM 8.9 mg/dL (8.4-11.0); CREATININE 0.7 mg/dL (0.55-1.30); POTASSIUM 4.1 mmol/L (3.5-5.1); TOTAL BILIRUBIN 0.5 mg/dL (0.0-1.0)
[2020-07-10] MEDS: VANCOMYCIN HCL 1 GM/NS PREMIX 250 ML IV SCH ×2 (08:58→16:42)
[2020-07-10] MEDS ORDERED: VANCOMYCIN HCL 1,000 MG in NS 250 ML IV SCH (09:00)
[2020-07-10] MEDS ORDERED: ALBUTEROL MDI INHALATION 8 GM INH INH PRN ×2 (10:45→17:45)
[2020-07-10] MEDS ORDERED: NS 500 ML IV ONE (10:45)
[2020-07-10] MEDS: HYDROcodone/ACETAMIN 5-325 MG TAB (NORCO/ VICODIN) PO PRN (11:50)
[2020-07-10] MEDS: BACLOFEN 10 MG TABLET GT SCH (21:25)
[2020-07-10] MEDS: MAGNESIUM OXIDE 400 MG TABLET GT SCH (21:25)
[2020-07-10] MEDS: DIPHENHYDRAMINE HCL 25 MG CAPSULE GT SCH (21:25)
[2020-07-10] MEDS: LevETIRAcetam 500 MG/5 ML UDC ORAL LIQUID PO SCH (22:11)
[2020-07-10] MEDS ORDERED: LevETIRAcetam 500 MG/5 ML UDC ORAL LIQUID ONE (22:17)
[2020-07-11] VITALS (35 sets, daily range): BP systolic 114–132
[2020-07-11] MEDS: VANCOMYCIN HCL 1 GM/NS PREMIX 250 ML IV SCH (01:21)
[2020-07-11] MEDS: PIPERACILLIN/TAZO 3.375/DEX-IS 50 ML IV SCH ×3 (06:05→22:03)
[2020-07-11 06:29] LABS: BASOPHILS # (AUTO) 0.1 K/uL (0.0-0.2); BASOPHILS % (AUTO) 0.5 % (0.0-2.0); EOSINOPHILS # (AUTO) 0.2 K/uL (0.0-0.4); HEMATOCRIT 29.4 % (36-54); HEMOGLOBIN 9.3 g/dL (14.0-18.0); LYMPHOCYTES # (AUTO) 1.5 K/uL (1.0-5.5); LYMPHOCYTES % (AUTO) 7.8 % (20.5-51.5); MEAN CORPUSCULAR HEMOGLOBIN 26 pg (27-31); MEAN CORPUSCULAR HGB CONC 32 % (32-36); MEAN CORPUSCULAR VOLUME 82 fL (79.0-98.0); MONOCYTES % (AUTO) 5.5 % (1.7-9.3); NEUTROPHILS # (AUTO) 16.1 K/uL (1.8-7.7); NEUTROPHILS % (AUTO) 85.2 % (40.0-70.0); PLATELET COUNT (AUTO) 329 K/uL (130-430); RED BLOOD CELL COUNT(AUTO) 3.58 MIL/uL (4.2-6.2); RED CELL DISTRIBUTION WIDTH 15.3 % (9.0-15.0); WHITE BLOOD COUNT (AUTO) 18.9 K/uL (4.8-10.8)
[2020-07-11 06:40] LABS: ALBUMIN 2.1 g/dL (3.4-4.8); CREATININE 0.76 mg/dL (0.55-1.30); TOTAL BILIRUBIN 0.3 mg/dL (0.0-1.0)
[2020-07-11] MEDS: LANSOPRAZOLE 30 MG CAPSULE.DR GT SCH (07:01)
[2020-07-11 07:48] LABS: PHOSPHORUS 3.7 mg/dL (2.7-4.5)
[2020-07-11] MEDS: MAGNESIUM OXIDE 400 MG TABLET GT SCH ×2 (09:08→20:53)
[2020-07-11] MEDS: BACLOFEN 10 MG TABLET GT SCH ×3 (09:08→20:53)
[2020-07-11] MEDS: DIPHENHYDRAMINE HCL 25 MG CAPSULE GT SCH ×2 (09:08→20:53)
[2020-07-11] MEDS: POTASSIUM CHLORIDE 20 MEQ/PKT PACKET GT SCH (09:08)
[2020-07-11] MEDS: LevETIRAcetam 500 MG/5 ML UDC ORAL LIQUID PO SCH ×2 (09:09→20:53)
[2020-07-11] MEDS: ENOXAPARIN SODIUM 40 MG/0.4 ML SYRINGE SQ SCH (09:10)
[2020-07-11] MEDS: D5/0.45 NS 1,000 ML IV SCH ×2 (09:17→18:51)
[2020-07-11] MEDS: VANCOMYCIN HCL 1.25 GM/NS 250 ML IV SCH ×2 (11:56→21:21)
[2020-07-12] VITALS (17 sets, daily range): BP systolic 114–136
[2020-07-12] MEDS: D5/0.45 NS 1,000 ML IV SCH ×2 (05:39→17:00)
[2020-07-12] MEDS: PIPERACILLIN/TAZO 3.375/DEX-IS 50 ML IV SCH ×3 (05:39→21:45)
[2020-07-12] MEDS: LANSOPRAZOLE 30 MG CAPSULE.DR GT SCH (05:43)
[2020-07-12] MEDS: POTASSIUM CHLORIDE 20 MEQ/PKT PACKET GT SCH (07:53)
[2020-07-12] MEDS: MAGNESIUM OXIDE 400 MG TABLET GT SCH ×2 (07:53→21:45)
[2020-07-12] MEDS: BACLOFEN 10 MG TABLET GT SCH ×3 (07:53→21:45)
[2020-07-12] MEDS: DIPHENHYDRAMINE HCL 25 MG CAPSULE GT SCH ×2 (07:53→21:45)
[2020-07-12] MEDS: LevETIRAcetam 500 MG/5 ML UDC ORAL LIQUID PO SCH ×2 (07:53→21:45)
[2020-07-12] MEDS: ENOXAPARIN SODIUM 40 MG/0.4 ML SYRINGE SQ SCH (07:54)
[2020-07-12] MEDS: VANCOMYCIN HCL 1.25 GM/NS 250 ML IV SCH ×2 (10:14→23:00)
[2020-07-12] MEDS: LORazepam 1 MG TABLET GT PRN (17:00)
[2020-07-12] MEDS ORDERED: levETIRAcetam 500 MG TABLET ONE (21:41)
[2020-07-13] VITALS (27 sets, daily range): BP systolic 93–164
[2020-07-13] MEDS: D5/0.45 NS 1,000 ML IV SCH ×2 (05:55→11:30)
[2020-07-13] MEDS: PIPERACILLIN/TAZO 3.375/DEX-IS 50 ML IV SCH ×3 (05:56→22:18)
[2020-07-13] MEDS: LANSOPRAZOLE 30 MG CAPSULE.DR GT SCH (06:41)
[2020-07-13] MEDS: MAGNESIUM OXIDE 400 MG TABLET GT SCH ×2 (07:51→21:32)
[2020-07-13] MEDS: DIPHENHYDRAMINE HCL 25 MG CAPSULE GT SCH ×2 (07:51→21:32)
[2020-07-13] MEDS: BACLOFEN 10 MG TABLET GT SCH ×3 (07:51→21:32)
[2020-07-13] MEDS: POTASSIUM CHLORIDE 20 MEQ/PKT PACKET GT SCH (07:51)
[2020-07-13] MEDS: ENOXAPARIN SODIUM 40 MG/0.4 ML SYRINGE SQ SCH (07:53)
[2020-07-13] MEDS: LORazepam 1 MG TABLET GT PRN ×2 (08:00→18:39)
[2020-07-13] MEDS: LevETIRAcetam 500 MG/5 ML UDC ORAL LIQUID PO SCH ×2 (09:57→21:33)
[2020-07-13] MEDS: HYDROcodone/ACETAMIN 5-325 MG TAB (NORCO/ VICODIN) PO PRN (19:34)
[2020-07-13] MEDS: BALSAM PERU/CASTOR OIL 60 GM OINT...G. TP SCH (20:00)
[2020-07-13] MEDS: ALBUTEROL SULFATE 0.083% 2.5 MG/3 ML VIAL.NEB INH PRN (20:29)
[2020-07-14] VITALS (35 sets, daily range): BP systolic 94–132
[2020-07-14] MEDS: VANCOMYCIN HCL 1,000 MG in NS 250 ML IV SCH ×2 (00:13→23:49)
[2020-07-14] MEDS: D5/0.45 NS 1,000 ML IV SCH ×3 (03:00→14:27)
[2020-07-14 05:56] LABS: ALBUMIN 1.9 g/dL (3.4-4.8); CALCIUM 8.1 mg/dL (8.4-11.0); CREATININE 2.13 mg/dL (0.55-1.30); PHOSPHORUS 3.4 mg/dL (2.7-4.5); POTASSIUM 3.2 mmol/L (3.5-5.1); TOTAL BILIRUBIN 0.2 mg/dL (0.0-1.0)
[2020-07-14 06:09] LABS: BASOPHILS # (AUTO) 0.1 K/uL (0.0-0.2); BASOPHILS % (AUTO) 0.3 % (0.0-2.0); EOSINOPHILS # (AUTO) 0.2 K/uL (0.0-0.4); EOSINOPHILS % (AUTO) 1.1 % (0.0-4.0); HEMATOCRIT 27.3 % (36-54); HEMOGLOBIN 8.8 g/dL (14.0-18.0); LYMPHOCYTES # (AUTO) 1.2 K/uL (1.0-5.5); MEAN CORPUSCULAR HEMOGLOBIN 26 pg (27-31); MEAN CORPUSCULAR HGB CONC 32 % (32-36); MEAN CORPUSCULAR VOLUME 81 fL (79.0-98.0); MONOCYTES # (AUTO) 0.8 K/uL (0.0-1.0); MONOCYTES % (AUTO) 3.8 % (1.7-9.3); NEUTROPHILS # (AUTO) 18.1 K/uL (1.8-7.7); PLATELET COUNT (AUTO) 300 K/uL (130-430); RED BLOOD CELL COUNT(AUTO) 3.35 MIL/uL (4.2-6.2); RED CELL DISTRIBUTION WIDTH 15.4 % (9.0-15.0); WHITE BLOOD COUNT (AUTO) 20.4 K/uL (4.8-10.8)
[2020-07-14] MEDS: PIPERACILLIN/TAZO 3.375/DEX-IS 50 ML IV SCH ×3 (06:22→21:01)
[2020-07-14] MEDS: DIPHENHYDRAMINE HCL 25 MG CAPSULE GT SCH ×2 (09:21→20:58)
[2020-07-14] MEDS: ENOXAPARIN SODIUM 40 MG/0.4 ML SYRINGE SQ SCH (09:21)
[2020-07-14] MEDS: LANSOPRAZOLE 30 MG CAPSULE.DR GT SCH (09:21)
[2020-07-14] MEDS: POTASSIUM CHLORIDE 20 MEQ/PKT PACKET GT SCH (09:22)
[2020-07-14] MEDS: MAGNESIUM OXIDE 400 MG TABLET GT SCH ×2 (09:22→20:58)
[2020-07-14] MEDS: BACLOFEN 10 MG TABLET GT SCH ×3 (09:22→20:57)
[2020-07-14] MEDS: BALSAM PERU/CASTOR OIL 60 GM OINT...G. TP SCH (09:22)
[2020-07-14] MEDS: MENTHOL/ZINC OXIDE 113 GM OINT. TP PRN (09:28)
[2020-07-14] MEDS: LevETIRAcetam 500 MG/5 ML UDC ORAL LIQUID PO SCH ×2 (09:31→20:58)
[2020-07-14 10:56] LABS: NEUTROPHILS % (AUTO) 88.8 % (40.0-70.0)
[2020-07-14] MEDS ORDERED: POTASSIUM CHLORIDE 20 MEQ/PKT PACKET PO ONE (23:15)
[2020-07-15] VITALS (32 sets, daily range): BP systolic 108–175
[2020-07-15] MEDS: D5/0.45 NS 1,000 ML IV SCH ×3 (02:37→21:27)
[2020-07-15] MEDS: PIPERACILLIN/TAZO 3.375/DEX-IS 50 ML IV SCH ×3 (06:23→22:00)
[2020-07-15] MEDS: LANSOPRAZOLE 30 MG CAPSULE.DR GT SCH (07:00)
[2020-07-15 07:44] LABS: ALBUMIN 1.8 g/dL (3.4-4.8); CALCIUM 8.5 mg/dL (8.4-11.0); CREATININE 2.12 mg/dL (0.55-1.30); PHOSPHORUS 3.6 mg/dL (2.7-4.5); POTASSIUM 3.7 mmol/L (3.5-5.1); TOTAL BILIRUBIN 0.2 mg/dL (0.0-1.0)
[2020-07-15] MEDS: MAGNESIUM OXIDE 400 MG TABLET GT SCH ×2 (09:01→20:17)
[2020-07-15] MEDS: BACLOFEN 10 MG TABLET GT SCH ×3 (09:01→20:17)
[2020-07-15] MEDS: DIPHENHYDRAMINE HCL 25 MG CAPSULE GT SCH ×2 (09:01→20:17)
[2020-07-15] MEDS: POTASSIUM CHLORIDE 20 MEQ/PKT PACKET GT SCH (09:01)
[2020-07-15] MEDS: LevETIRAcetam 500 MG/5 ML UDC ORAL LIQUID PO SCH ×2 (09:02→20:17)
[2020-07-15] MEDS: ENOXAPARIN SODIUM 40 MG/0.4 ML SYRINGE SQ SCH (09:02)
[2020-07-15] MEDS: BALSAM PERU/CASTOR OIL 60 GM OINT...G. TP SCH (09:03)
[2020-07-15 09:21] LABS: BASOPHILS # (AUTO) 0.1 K/uL (0.0-0.2); BASOPHILS % (AUTO) 0.7 % (0.0-2.0); EOSINOPHILS # (AUTO) 0.3 K/uL (0.0-0.4); EOSINOPHILS % (AUTO) 2.2 % (0.0-4.0); HEMATOCRIT 26.6 % (36-54); LYMPHOCYTES # (AUTO) 1.5 K/uL (1.0-5.5); LYMPHOCYTES % (AUTO) 10.7 % (20.5-51.5); MEAN CORPUSCULAR HEMOGLOBIN 26 pg (27-31); MEAN CORPUSCULAR HGB CONC 32 % (32-36); MEAN CORPUSCULAR VOLUME 81 fL (79.0-98.0); MONOCYTES # (AUTO) 0.8 K/uL (0.0-1.0); MONOCYTES % (AUTO) 6.2 % (1.7-9.3); NEUTROPHILS # (AUTO) 10.9 K/uL (1.8-7.7); NEUTROPHILS % (AUTO) 80.2 % (40.0-70.0); PLATELET COUNT (AUTO) 270 K/uL (130-430); RED BLOOD CELL COUNT(AUTO) 3.28 MIL/uL (4.2-6.2); RED CELL DISTRIBUTION WIDTH 15.4 % (9.0-15.0); WHITE BLOOD COUNT (AUTO) 13.6 K/uL (4.8-10.8)
[2020-07-15 09:24] LABS: HEMOGLOBIN 8.5 g/dL (14.0-18.0)
[2020-07-15] MEDS: LORazepam 2 MG/ML VIAL IVP PRN (20:18)
[2020-07-15] MEDS: HYDROcodone/ACETAMIN 5-325 MG TAB (NORCO/ VICODIN) PO PRN (20:18)
[2020-07-16] VITALS (36 sets, daily range): BP systolic 116–161
[2020-07-16 05:38] LABS: BASOPHILS % (AUTO) 0.4 % (0.0-2.0); EOSINOPHILS # (AUTO) 0.4 K/uL (0.0-0.4); EOSINOPHILS % (AUTO) 4.1 % (0.0-4.0); HEMATOCRIT 28.5 % (36-54); HEMOGLOBIN 9.2 g/dL (14.0-18.0); LYMPHOCYTES # (AUTO) 1.5 K/uL (1.0-5.5); LYMPHOCYTES % (AUTO) 15.1 % (20.5-51.5); MEAN CORPUSCULAR HEMOGLOBIN 26 pg (27-31); MEAN CORPUSCULAR HGB CONC 32 % (32-36); MEAN CORPUSCULAR VOLUME 81 fL (79.0-98.0); MONOCYTES # (AUTO) 0.7 K/uL (0.0-1.0); MONOCYTES % (AUTO) 6.6 % (1.7-9.3); NEUTROPHILS # (AUTO) 7.3 K/uL (1.8-7.7); NEUTROPHILS % (AUTO) 73.8 % (40.0-70.0); PLATELET COUNT (AUTO) 313 K/uL (130-430); RED CELL DISTRIBUTION WIDTH 15.7 % (9.0-15.0); WHITE BLOOD COUNT (AUTO) 9.9 K/uL (4.8-10.8)
[2020-07-16 05:54] LABS: ALBUMIN 1.9 g/dL (3.4-4.8); CALCIUM 8.8 mg/dL (8.4-11.0); CREATININE 2.16 mg/dL (0.55-1.30); PHOSPHORUS 3.8 mg/dL (2.7-4.5); TOTAL BILIRUBIN 0.2 mg/dL (0.0-1.0)
[2020-07-16] MEDS: PIPERACILLIN/TAZO 3.375/DEX-IS 50 ML IV SCH ×3 (06:30→22:41)
[2020-07-16] MEDS: ENOXAPARIN SODIUM 40 MG/0.4 ML SYRINGE SQ SCH (09:00)
[2020-07-16] MEDS: LevETIRAcetam 500 MG/5 ML UDC ORAL LIQUID PO SCH ×2 (09:07→21:58)
[2020-07-16] MEDS: MAGNESIUM OXIDE 400 MG TABLET GT SCH ×2 (09:07→21:58)
[2020-07-16] MEDS: POTASSIUM CHLORIDE 20 MEQ/PKT PACKET GT SCH (09:07)
[2020-07-16] MEDS: MENTHOL/ZINC OXIDE 113 GM OINT. TP PRN ×2 (09:07→09:12)
[2020-07-16] MEDS: BACLOFEN 10 MG TABLET GT SCH ×3 (09:07→21:56)
[2020-07-16] MEDS: DIPHENHYDRAMINE HCL 25 MG CAPSULE GT SCH ×2 (09:07→21:57)
[2020-07-16] MEDS: BALSAM PERU/CASTOR OIL 60 GM OINT...G. TP SCH (09:08)
[2020-07-16] MEDS: LANSOPRAZOLE 30 MG CAPSULE.DR GT SCH (09:09)
[2020-07-16] MEDS: D5/0.45 NS 1,000 ML IV SCH ×2 (09:10→20:36)
[2020-07-16] MEDS: VANCOMYCIN HCL 750 MG in NS 250 ML IV SCH (12:12)
[2020-07-16] MEDS ORDERED: LIDOCAINE 1%, 20 ML MDV 20 ML ONE (20:10)
[2020-07-16] MEDS: ALBUMIN HUMAN 25% 100 ML IV SCH (20:48)
[2020-07-16] MEDS ORDERED: ALBUMIN HUMAN 25% 100 ML IV ONE (21:06)
[2020-07-17] VITALS (31 sets, daily range): BP systolic 147–188
[2020-07-17] MEDS: ALBUMIN HUMAN 25% 100 ML IV SCH ×2 (00:42→06:00)
[2020-07-17] MEDS ORDERED: ALBUMIN HUMAN 25% 100 ML IV ONE ×2 (01:00→06:19)
[2020-07-17 05:16] LABS: BASOPHILS # (AUTO) 0.2 K/uL (0.0-0.2); BASOPHILS % (AUTO) 1.7 % (0.0-2.0); EOSINOPHILS # (AUTO) 0.5 K/uL (0.0-0.4); EOSINOPHILS % (AUTO) 4.6 % (0.0-4.0); HEMATOCRIT 24.5 % (36-54); HEMOGLOBIN 7.8 g/dL (14.0-18.0); LYMPHOCYTES # (AUTO) 1.1 K/uL (1.0-5.5); LYMPHOCYTES % (AUTO) 10.6 % (20.5-51.5); MEAN CORPUSCULAR HEMOGLOBIN 26 pg (27-31); MEAN CORPUSCULAR HGB CONC 32 % (32-36); MEAN CORPUSCULAR VOLUME 81 fL (79.0-98.0); MONOCYTES # (AUTO) 0.7 K/uL (0.0-1.0); MONOCYTES % (AUTO) 6.6 % (1.7-9.3); NEUTROPHILS # (AUTO) 7.6 K/uL (1.8-7.7); NEUTROPHILS % (AUTO) 76.5 % (40.0-70.0); PLATELET COUNT (AUTO) 315 K/uL (130-430); RED BLOOD CELL COUNT(AUTO) 3.02 MIL/uL (4.2-6.2); RED CELL DISTRIBUTION WIDTH 15.6 % (9.0-15.0)
[2020-07-17 05:29] LABS: ALBUMIN 2.8 g/dL (3.4-4.8); CALCIUM 8.9 mg/dL (8.4-11.0); CREATININE 2.19 mg/dL (0.55-1.30); PHOSPHORUS 4.2 mg/dL (2.7-4.5); POTASSIUM 4.2 mmol/L (3.5-5.1); TOTAL BILIRUBIN 0.3 mg/dL (0.0-1.0)
[2020-07-17 05:35] LABS: BILIRUBIN,URINE NEGATIVE (NEGATIVE); CLARITY/URINE CLEAR (CLEAR); COLOR,URINE YELLOW (YELLOW); GLUCOSE,URINE NEGATIVE (NEGATIVE); KETONES,URINE NEGATIVE (NEGATIVE); LEUKOCYTE ESTERASE ,URINE 2+ (NEGATIVE); NITRITE, URINE NEGATIVE (NEGATIVE); PROTEIN URINE NEGATIVE (NEGATIVE); UROBILINOGEN,URINE 0.2 (0.2-1.0)
[2020-07-17 05:41] LABS: BLOOD, URINE TRACE (NEGATIVE)
[2020-07-17 05:44] LABS: BACTERIA,URINE FEW /HPF (None Seen); YEAST,URINE Moderate /HPF (None Seen)
[2020-07-17] MEDS: LANSOPRAZOLE 30 MG CAPSULE.DR GT SCH (06:20)
[2020-07-17] MEDS: LORazepam 2 MG/ML VIAL IVP PRN ×2 (06:36→21:51)
[2020-07-17] MEDS: LevETIRAcetam 500 MG/5 ML UDC ORAL LIQUID PO SCH ×2 (09:24→21:51)
[2020-07-17] MEDS: DIPHENHYDRAMINE HCL 25 MG CAPSULE GT SCH (09:24)
[2020-07-17] MEDS: BALSAM PERU/CASTOR OIL 60 GM OINT...G. TP SCH (09:24)
[2020-07-17] MEDS: MAGNESIUM OXIDE 400 MG TABLET GT SCH ×2 (09:24→21:50)
[2020-07-17] MEDS: ENOXAPARIN SODIUM 40 MG/0.4 ML SYRINGE SQ SCH (09:24)
[2020-07-17] MEDS: BACLOFEN 10 MG TABLET GT SCH ×3 (09:24→21:50)
[2020-07-17] MEDS: POTASSIUM CHLORIDE 20 MEQ/PKT PACKET GT SCH (09:24)
[2020-07-17 10:19] LABS: CALCIUM 8.8 mg/dL (8.4-11.0); CREATININE 2.2 mg/dL (0.55-1.30); POTASSIUM 4.4 mmol/L (3.5-5.1); TOTAL BILIRUBIN 0.3 mg/dL (0.0-1.0)
[2020-07-17] MEDS: VANCOMYCIN HCL 750 MG in NS 250 ML IV SCH (12:00)
[2020-07-17 13:30] LABS: TOTAL IRON BIND. CAPACITY 189 ug/dL (250-450)
[2020-07-17] MEDS: D5/0.45 NS 1,000 ML IV SCH ×2 (15:19→19:30)
[2020-07-18] VITALS (35 sets, daily range): BP systolic 121–199
[2020-07-18] MEDS ORDERED: NS 500 ML IV ONE (01:00)
[2020-07-18] MEDS: hydrALAZINE HCL 20 MG/ML VIAL IVP PRN ×4 (02:03→21:30)
[2020-07-18] MEDS: LORazepam 2 MG/ML VIAL IVP PRN ×2 (03:42→23:50)
[2020-07-18] MEDS: HYDROcodone/ACETAMIN 5-325 MG TAB (NORCO/ VICODIN) PO PRN (03:42)
[2020-07-18 05:49] LABS: BASOPHILS % (AUTO) 0.3 % (0.0-2.0); EOSINOPHILS # (AUTO) 0.3 K/uL (0.0-0.4); EOSINOPHILS % (AUTO) 1.8 % (0.0-4.0); HEMATOCRIT 25.6 % (36-54); HEMOGLOBIN 8.2 g/dL (14.0-18.0); LYMPHOCYTES # (AUTO) 1.7 K/uL (1.0-5.5); LYMPHOCYTES % (AUTO) 11.6 % (20.5-51.5); MEAN CORPUSCULAR HEMOGLOBIN 26 pg (27-31); MEAN CORPUSCULAR HGB CONC 32 % (32-36); MEAN CORPUSCULAR VOLUME 80 fL (79.0-98.0); MONOCYTES # (AUTO) 0.8 K/uL (0.0-1.0); MONOCYTES % (AUTO) 5.6 % (1.7-9.3); NEUTROPHILS # (AUTO) 11.8 K/uL (1.8-7.7); NEUTROPHILS % (AUTO) 80.7 % (40.0-70.0); PLATELET COUNT (AUTO) 318 K/uL (130-430); RED BLOOD CELL COUNT(AUTO) 3.18 MIL/uL (4.2-6.2); RED CELL DISTRIBUTION WIDTH 15.9 % (9.0-15.0); WHITE BLOOD COUNT (AUTO) 14.6 K/uL (4.8-10.8)
[2020-07-18 06:10] LABS: ALBUMIN 2.6 g/dL (3.4-4.8); CALCIUM 8.5 mg/dL (8.4-11.0); CREATININE 2.02 mg/dL (0.55-1.30); PHOSPHORUS 3.2 mg/dL (2.7-4.5); POTASSIUM 3.8 mmol/L (3.5-5.1); TOTAL BILIRUBIN 0.2 mg/dL (0.0-1.0)
[2020-07-18] MEDS: MAGNESIUM OXIDE 400 MG TABLET GT SCH ×2 (07:52→20:44)
[2020-07-18] MEDS: POTASSIUM CHLORIDE 20 MEQ/PKT PACKET GT SCH (07:52)
[2020-07-18] MEDS: BACLOFEN 10 MG TABLET GT SCH ×3 (07:52→20:44)
[2020-07-18] MEDS: HEPARIN SODIUM,PORCINE 5,000 UNITS/ML VIAL SUBCUT SCH ×2 (07:53→20:30)
[2020-07-18] MEDS: cloNIDine HCL 0.1 MG/24 HR PATCH.TDWK TD SCH (07:54)
[2020-07-18] MEDS: LevETIRAcetam 500 MG/5 ML UDC ORAL LIQUID PO SCH ×2 (07:55→20:44)
[2020-07-18] MEDS ORDERED: COMMUNICATION ORDER XX ONE (08:00)
[2020-07-18] MEDS: BALSAM PERU/CASTOR OIL 60 GM OINT...G. TP SCH (08:26)
[2020-07-18] MEDS: HYDROcodone/ACETAMIN 5-325 MG TAB (NORCO/ VICODIN) GT PRN ×2 (09:09→23:51)
[2020-07-18 10:13] LABS: FOLATE (FOLIC ACID) 11.1 ng/mL (>3.0)
[2020-07-18] MEDS: VANCOMYCIN HCL 750 MG in NS 250 ML IV SCH (11:06)
[2020-07-18] MEDS: ALBUTEROL SULFATE 0.083% 2.5 MG/3 ML VIAL.NEB INH PRN (16:17)
[2020-07-18] MEDS: D5/0.45 NS 1,000 ML IV SCH (17:59)
[2020-07-19] VITALS (34 sets, daily range): BP systolic 98–159
[2020-07-19] MEDS ORDERED: TIGECYCLINE 100 MG in NS 100 ML IV ONE (06:30)
[2020-07-19] MEDS: LANSOPRAZOLE 30 MG CAPSULE.DR GT SCH ×2 (07:00→08:25)
[2020-07-19] MEDS ORDERED: DILTIAZEM HCL 60 MG TABLET PO ONE (08:15)
[2020-07-19] MEDS: POTASSIUM CHLORIDE 20 MEQ/PKT PACKET GT SCH (08:24)
[2020-07-19] MEDS: BACLOFEN 10 MG TABLET GT SCH ×3 (08:25→20:38)
[2020-07-19] MEDS: HEPARIN SODIUM,PORCINE 5,000 UNITS/ML VIAL SUBCUT SCH ×2 (08:25→20:37)
[2020-07-19] MEDS: MAGNESIUM OXIDE 400 MG TABLET GT SCH ×2 (08:25→20:38)
[2020-07-19] MEDS: LevETIRAcetam 500 MG/5 ML UDC ORAL LIQUID PO SCH ×2 (09:53→20:38)
[2020-07-19] MEDS: SOD FERRIC GLUC COMPLEX/SUC 125 MG in NS 100 ML IV SCH (14:08)
[2020-07-19] MEDS: DILTIAZEM HCL 60 MG TABLET PO SCH ×2 (14:08→21:53)
[2020-07-19] MEDS: BALSAM PERU/CASTOR OIL 60 GM OINT...G. TP SCH (14:09)
[2020-07-19] MEDS ORDERED: fentaNYL CITRATE/PF 100 MCG/2 ML AMP ONE (14:48)
[2020-07-19] MEDS ORDERED: MEPERIDINE HCL/PF 100 MG/ML AMP ONE (14:48)
[2020-07-19] MEDS ORDERED: LIDOCAINE 2% JELLY UROJECT 10 ML MM ONE (14:48)
[2020-07-19] MEDS ORDERED: LIDOCAINE 1%, 20 ML MDV 20 ML ONE (14:49)
[2020-07-19] MEDS: MIDAZOLAM HCL 5 MG/5 ML VIAL ONE ×2 (17:20→17:30)
[2020-07-19] MEDS: D5W 1,000 ML IV SCH (18:30)
[2020-07-19] MEDS: TIGECYCLINE 50 MG in NS 100 ML IV SCH (20:38)
[2020-07-19] MEDS: HYDROcodone/ACETAMIN 5-325 MG TAB (NORCO/ VICODIN) GT PRN (21:54)
[2020-07-20] VITALS (32 sets, daily range): BP systolic 117–153
[2020-07-20] MEDS: DILTIAZEM HCL 60 MG TABLET PO SCH ×2 (06:16→22:03)
[2020-07-20] MEDS: LANSOPRAZOLE 30 MG CAPSULE.DR GT SCH (06:16)
[2020-07-20] MEDS: D5W 1,000 ML IV SCH ×2 (06:17→15:02)
[2020-07-20 06:27] LABS: BASOPHILS % (AUTO) 0.3 % (0.0-2.0); EOSINOPHILS # (AUTO) 0.3 K/uL (0.0-0.4); EOSINOPHILS % (AUTO) 2.5 % (0.0-4.0); HEMATOCRIT 26.5 % (36-54); HEMOGLOBIN 8.3 g/dL (14.0-18.0); LYMPHOCYTES # (AUTO) 1.4 K/uL (1.0-5.5); LYMPHOCYTES % (AUTO) 10.2 % (20.5-51.5); MEAN CORPUSCULAR HEMOGLOBIN 26 pg (27-31); MEAN CORPUSCULAR HGB CONC 31 % (32-36); MEAN CORPUSCULAR VOLUME 82 fL (79.0-98.0); MONOCYTES # (AUTO) 0.7 K/uL (0.0-1.0); MONOCYTES % (AUTO) 5.3 % (1.7-9.3); NEUTROPHILS % (AUTO) 81.7 % (40.0-70.0); PLATELET COUNT (AUTO) 314 K/uL (130-430); RED BLOOD CELL COUNT(AUTO) 3.24 MIL/uL (4.2-6.2); RED CELL DISTRIBUTION WIDTH 16.4 % (9.0-15.0); WHITE BLOOD COUNT (AUTO) 13.5 K/uL (4.8-10.8)
[2020-07-20 06:43] LABS: ALBUMIN 2.8 g/dL (3.4-4.8); CALCIUM 9.3 mg/dL (8.4-11.0); CREATININE 1.78 mg/dL (0.55-1.30); PHOSPHORUS 4.5 mg/dL (2.7-4.5); POTASSIUM 4.6 mmol/L (3.5-5.1); TOTAL BILIRUBIN 0.1 mg/dL (0.0-1.0)
[2020-07-20] MEDS: MAGNESIUM OXIDE 400 MG TABLET GT SCH ×3 (09:00→21:00)
[2020-07-20] MEDS: BALSAM PERU/CASTOR OIL 60 GM OINT...G. TP SCH (09:11)
[2020-07-20] MEDS: FOLIC ACID 1 MG TABLET GT SCH (09:14)
[2020-07-20] MEDS: POTASSIUM CHLORIDE 20 MEQ/PKT PACKET GT SCH (09:14)
[2020-07-20] MEDS: BACLOFEN 10 MG TABLET GT SCH ×3 (09:14→22:02)
[2020-07-20] MEDS: LevETIRAcetam 500 MG/5 ML UDC ORAL LIQUID PO SCH ×2 (09:16→22:08)
[2020-07-20] MEDS: TIGECYCLINE 50 MG in NS 100 ML IV SCH ×2 (09:18→22:07)
[2020-07-20] MEDS: HEPARIN SODIUM,PORCINE 5,000 UNITS/ML VIAL SUBCUT SCH ×2 (09:31→22:06)
[2020-07-20] MEDS: SOD FERRIC GLUC COMPLEX/SUC 125 MG in NS 100 ML IV SCH (11:26)
[2020-07-20] MEDS ORDERED: NALOXONE HCL 0.4 MG/ML AMP (NARCAN) IVP PRN (15:30)
[2020-07-20] MEDS: MORPHINE 2 MG/ML INJ. SYRINGE IVP PRN (15:56)
[2020-07-20] MEDS ORDERED: LIDOCAINE JELLY 5 ML TUBE ONE ×2 (19:37→20:18)
[2020-07-20] MEDS ORDERED: MIDAZOLAM HCL 2 MG/2 ML VIAL (VERSED) ONE (20:16)
[2020-07-20] MEDS ORDERED: MEPERIDINE HCL/PF 25 MG/ML DISP.SYRIN ONE (20:18)
[2020-07-20] MEDS ORDERED: MIDAZOLAM HCL 5 MG/5 ML VIAL ONE (20:30)
[2020-07-20] MEDS: GLYCOPYRROLATE 1 MG TABLET PO SCH (22:03)
[2020-07-21] VITALS (35 sets, daily range): BP systolic 117–152
[2020-07-21] MEDS: D5W 1,000 ML IV SCH ×3 (00:39→20:30)
[2020-07-21] MEDS: MORPHINE 2 MG/ML INJ. SYRINGE IVP PRN (05:09)
[2020-07-21] MEDS ORDERED: MORPHINE 2 MG/ML INJ. SYRINGE ONE (05:18)
[2020-07-21 05:20] LABS: BASOPHILS % (AUTO) 0.3 % (0.0-2.0); EOSINOPHILS # (AUTO) 0.3 K/uL (0.0-0.4); HEMATOCRIT 28.6 % (36-54); HEMOGLOBIN 9.2 g/dL (14.0-18.0); LYMPHOCYTES # (AUTO) 1.4 K/uL (1.0-5.5); LYMPHOCYTES % (AUTO) 8.6 % (20.5-51.5); MEAN CORPUSCULAR HEMOGLOBIN 26 pg (27-31); MEAN CORPUSCULAR HGB CONC 32 % (32-36); MEAN CORPUSCULAR VOLUME 82 fL (79.0-98.0); MONOCYTES # (AUTO) 0.7 K/uL (0.0-1.0); MONOCYTES % (AUTO) 4.4 % (1.7-9.3); NEUTROPHILS # (AUTO) 13.4 K/uL (1.8-7.7); NEUTROPHILS % (AUTO) 84.7 % (40.0-70.0); PLATELET COUNT (AUTO) 334 K/uL (130-430); RED BLOOD CELL COUNT(AUTO) 3.51 MIL/uL (4.2-6.2); RED CELL DISTRIBUTION WIDTH 16.6 % (9.0-15.0); WHITE BLOOD COUNT (AUTO) 15.9 K/uL (4.8-10.8)
[2020-07-21 05:38] LABS: ALBUMIN 2.8 g/dL (3.4-4.8); CALCIUM 9.4 mg/dL (8.4-11.0); CREATININE 1.62 mg/dL (0.55-1.30); POTASSIUM 4.8 mmol/L (3.5-5.1); TOTAL BILIRUBIN 0.2 mg/dL (0.0-1.0)
[2020-07-21] MEDS: LANSOPRAZOLE 30 MG CAPSULE.DR GT SCH (06:44)
[2020-07-21] MEDS: BACLOFEN 10 MG TABLET GT SCH ×3 (08:04→21:57)
[2020-07-21] MEDS: HEPARIN SODIUM,PORCINE 5,000 UNITS/ML VIAL SUBCUT SCH ×2 (08:04→21:00)
[2020-07-21] MEDS: FOLIC ACID 1 MG TABLET GT SCH (08:04)
[2020-07-21] MEDS: GLYCOPYRROLATE 1 MG TABLET PO SCH ×2 (08:04→21:59)
[2020-07-21] MEDS: DILTIAZEM HCL 60 MG TABLET PO SCH ×2 (08:05→21:58)
[2020-07-21] MEDS: TIGECYCLINE 50 MG in NS 100 ML IV SCH ×2 (08:06→21:57)
[2020-07-21] MEDS: LevETIRAcetam 500 MG/5 ML UDC ORAL LIQUID PO SCH ×2 (08:08→21:59)
[2020-07-21] MEDS: MAGNESIUM OXIDE 400 MG TABLET GT SCH ×2 (08:08→21:57)
[2020-07-21] MEDS: BALSAM PERU/CASTOR OIL 60 GM OINT...G. TP SCH (09:00)
[2020-07-21] MEDS: SOD FERRIC GLUC COMPLEX/SUC 125 MG in NS 100 ML IV SCH (11:03)
[2020-07-21] MEDS ORDERED: LIDOCAINE 1% *INHALATION* MPF 5 ML VIAL INH ONE (17:28)
[2020-07-21] MEDS ORDERED: LIDOCAINE 1%, 20 ML MDV 20 ML ONE (17:29)
[2020-07-22] VITALS (31 sets, daily range): BP systolic 119–167
[2020-07-22 05:42] LABS: BASOPHILS % (AUTO) 0.4 % (0.0-2.0); EOSINOPHILS # (AUTO) 0.3 K/uL (0.0-0.4); EOSINOPHILS % (AUTO) 2.4 % (0.0-4.0); HEMATOCRIT 28.1 % (36-54); LYMPHOCYTES # (AUTO) 1.3 K/uL (1.0-5.5); LYMPHOCYTES % (AUTO) 11.5 % (20.5-51.5); MEAN CORPUSCULAR HEMOGLOBIN 26 pg (27-31); MEAN CORPUSCULAR HGB CONC 32 % (32-36); MEAN CORPUSCULAR VOLUME 81 fL (79.0-98.0); MONOCYTES # (AUTO) 0.7 K/uL (0.0-1.0); MONOCYTES % (AUTO) 6.3 % (1.7-9.3); NEUTROPHILS # (AUTO) 9.3 K/uL (1.8-7.7); NEUTROPHILS % (AUTO) 79.4 % (40.0-70.0); PLATELET COUNT (AUTO) 320 K/uL (130-430); RED BLOOD CELL COUNT(AUTO) 3.47 MIL/uL (4.2-6.2); RED CELL DISTRIBUTION WIDTH 16.6 % (9.0-15.0); WHITE BLOOD COUNT (AUTO) 11.7 K/uL (4.8-10.8)
[2020-07-22 05:55] LABS: CALCIUM 9.4 mg/dL (8.4-11.0); CREATININE 1.66 mg/dL (0.55-1.30); POTASSIUM 4.4 mmol/L (3.5-5.1)
[2020-07-22] MEDS: D5W 1,000 ML IV SCH ×2 (06:25→09:00)
[2020-07-22] MEDS: LANSOPRAZOLE 30 MG CAPSULE.DR GT SCH (06:26)
[2020-07-22] MEDS: HEPARIN SODIUM,PORCINE 5,000 UNITS/ML VIAL SUBCUT SCH ×2 (09:00→21:00)
[2020-07-22] MEDS: BALSAM PERU/CASTOR OIL 60 GM OINT...G. TP SCH (09:34)
[2020-07-22] MEDS: GLYCOPYRROLATE 1 MG TABLET PO SCH ×2 (09:43→20:58)
[2020-07-22] MEDS: MAGNESIUM OXIDE 400 MG TABLET GT SCH ×2 (09:43→20:57)
[2020-07-22] MEDS: LevETIRAcetam 500 MG/5 ML UDC ORAL LIQUID PO SCH ×2 (09:44→21:08)
[2020-07-22] MEDS: DILTIAZEM HCL 60 MG TABLET PO SCH ×2 (09:44→20:57)
[2020-07-22] MEDS: TIGECYCLINE 50 MG in NS 100 ML IV SCH ×2 (09:45→20:57)
[2020-07-22] MEDS: FOLIC ACID 1 MG TABLET GT SCH (09:46)
[2020-07-22] MEDS: BACLOFEN 10 MG TABLET GT SCH ×3 (09:47→20:56)
[2020-07-22] MEDS: SOD FERRIC GLUC COMPLEX/SUC 125 MG in NS 100 ML IV SCH (12:18)
[2020-07-22] MEDS ORDERED: fentaNYL CITRATE/PF 100 MCG/2 ML AMP IVP PRN ×2 (16:30)
[2020-07-22] MEDS ORDERED: ONDANSETRON HCL 4 MG/2 ML VIAL IVP PRN (16:30)
[2020-07-22] MEDS ORDERED: WATER FOR IRRIGATION,STERILE 1,000 ML IRRIG.SOLN IR ONE (18:10)
[2020-07-22] MEDS ORDERED: LR 1,000 ML IV.SOLN IV ONE (18:10)
[2020-07-22] MEDS ORDERED: SEVOFLURANE 15 MIN GAS INH ONE (18:10)
[2020-07-22] MEDS ORDERED: CEFAZOLIN 1 GM IVPB PREMIX 50 ML IV ONE (18:10)
[2020-07-23] VITALS (37 sets, daily range): BP systolic 118–149
[2020-07-23] MEDS: MORPHINE 2 MG/ML INJ. SYRINGE IVP PRN (05:10)
[2020-07-23 05:35] LABS: CALCIUM 9.3 mg/dL (8.4-11.0); CREATININE 1.75 mg/dL (0.55-1.30); POTASSIUM 4.4 mmol/L (3.5-5.1)
[2020-07-23] MEDS: LANSOPRAZOLE 30 MG CAPSULE.DR GT SCH (06:09)
[2020-07-23] MEDS: MAGNESIUM OXIDE 400 MG TABLET GT SCH ×2 (08:35→21:15)
[2020-07-23] MEDS: FOLIC ACID 1 MG TABLET GT SCH (08:47)
[2020-07-23] MEDS: BACLOFEN 10 MG TABLET GT SCH ×3 (08:47→21:15)
[2020-07-23] MEDS: DILTIAZEM HCL 60 MG TABLET PO SCH ×3 (08:49→21:20)
[2020-07-23] MEDS: GLYCOPYRROLATE 1 MG TABLET PO SCH ×2 (08:50→21:15)
[2020-07-23] MEDS: LevETIRAcetam 500 MG/5 ML UDC ORAL LIQUID PO SCH ×2 (08:50→21:16)
[2020-07-23] MEDS: BALSAM PERU/CASTOR OIL 60 GM OINT...G. TP SCH (08:50)
[2020-07-23] MEDS: HEPARIN SODIUM,PORCINE 5,000 UNITS/ML VIAL SUBCUT SCH ×2 (08:52→21:20)
[2020-07-23] MEDS: TIGECYCLINE 50 MG in NS 100 ML IV SCH ×2 (08:52→21:21)
[2020-07-23] MEDS: SOD FERRIC GLUC COMPLEX/SUC 125 MG in NS 100 ML IV SCH (10:57)
[2020-07-24] VITALS (31 sets, daily range): BP systolic 94–154
[2020-07-24] MEDS: DILTIAZEM HCL 60 MG TABLET PO SCH ×3 (06:00→21:58)
[2020-07-24] MEDS: LANSOPRAZOLE 30 MG CAPSULE.DR GT SCH (08:00)
[2020-07-24] MEDS: MAGNESIUM OXIDE 400 MG TABLET GT SCH (09:00)
[2020-07-24 09:07] LABS: BASOPHILS % (AUTO) 0.3 % (0.0-2.0); EOSINOPHILS # (AUTO) 0.1 K/uL (0.0-0.4); EOSINOPHILS % (AUTO) 0.9 % (0.0-4.0); HEMATOCRIT 30.3 % (36-54); HEMOGLOBIN 9.8 g/dL (14.0-18.0); LYMPHOCYTES # (AUTO) 1.5 K/uL (1.0-5.5); LYMPHOCYTES % (AUTO) 9.4 % (20.5-51.5); MEAN CORPUSCULAR HEMOGLOBIN 26 pg (27-31); MEAN CORPUSCULAR HGB CONC 32 % (32-36); MEAN CORPUSCULAR VOLUME 81 fL (79.0-98.0); MONOCYTES # (AUTO) 1.1 K/uL (0.0-1.0); MONOCYTES % (AUTO) 6.8 % (1.7-9.3); NEUTROPHILS # (AUTO) 13.6 K/uL (1.8-7.7); NEUTROPHILS % (AUTO) 82.6 % (40.0-70.0); PLATELET COUNT (AUTO) 359 K/uL (130-430); RED BLOOD CELL COUNT(AUTO) 3.76 MIL/uL (4.2-6.2); WHITE BLOOD COUNT (AUTO) 16.5 K/uL (4.8-10.8)
[2020-07-24] MEDS: BALSAM PERU/CASTOR OIL 60 GM OINT...G. TP SCH (09:35)
[2020-07-24] MEDS: FOLIC ACID 1 MG TABLET GT SCH (09:43)
[2020-07-24] MEDS: BACLOFEN 10 MG TABLET GT SCH ×3 (09:43→21:33)
[2020-07-24] MEDS: GLYCOPYRROLATE 1 MG TABLET PO SCH ×2 (09:44→21:33)
[2020-07-24] MEDS: TIGECYCLINE 50 MG in NS 100 ML IV SCH ×2 (09:48→21:33)
[2020-07-24] MEDS: LevETIRAcetam 500 MG/5 ML UDC ORAL LIQUID PO SCH ×2 (09:48→21:33)
[2020-07-24] MEDS: HEPARIN SODIUM,PORCINE 5,000 UNITS/ML VIAL SUBCUT SCH ×2 (09:50→21:36)
[2020-07-24] MEDS: SOD FERRIC GLUC COMPLEX/SUC 125 MG in NS 100 ML IV SCH (11:00)
[2020-07-25 00:44] VITALS: BP_SYST 154
[2020-07-25] MEDS: LANSOPRAZOLE 30 MG CAPSULE.DR GT SCH (05:58)
[2020-07-25] MEDS: DILTIAZEM HCL 60 MG TABLET PO SCH ×3 (06:00→21:31)
[2020-07-25 06:42] LABS: BASOPHILS % (AUTO) 0.3 % (0.0-2.0); EOSINOPHILS # (AUTO) 0.1 K/uL (0.0-0.4); EOSINOPHILS % (AUTO) 0.7 % (0.0-4.0); HEMATOCRIT 31.7 % (36-54); LYMPHOCYTES # (AUTO) 1.6 K/uL (1.0-5.5); LYMPHOCYTES % (AUTO) 11.5 % (20.5-51.5); MEAN CORPUSCULAR HEMOGLOBIN 26 pg (27-31); MEAN CORPUSCULAR HGB CONC 31 % (32-36); MEAN CORPUSCULAR VOLUME 83 fL (79.0-98.0); MONOCYTES # (AUTO) 1.1 K/uL (0.0-1.0); NEUTROPHILS # (AUTO) 11.3 K/uL (1.8-7.7); NEUTROPHILS % (AUTO) 79.5 % (40.0-70.0); PLATELET COUNT (AUTO) 348 K/uL (130-430); RED BLOOD CELL COUNT(AUTO) 3.82 MIL/uL (4.2-6.2); RED CELL DISTRIBUTION WIDTH 17.5 % (9.0-15.0); WHITE BLOOD COUNT (AUTO) 14.2 K/uL (4.8-10.8)
[2020-07-25 06:52] LABS: ALBUMIN 2.8 g/dL (3.4-4.8); CALCIUM 9.6 mg/dL (8.4-11.0); CREATININE 1.55 mg/dL (0.55-1.30); POTASSIUM 4.5 mmol/L (3.5-5.1); TOTAL BILIRUBIN 0.2 mg/dL (0.0-1.0)
[2020-07-25 08:10] VITALS: BP_SYST 177
[2020-07-25 09:46] VITALS: BP_SYST 145
[2020-07-25] MEDS: TIGECYCLINE 50 MG in NS 100 ML IV SCH ×2 (10:03→21:27)
[2020-07-25] MEDS: BACLOFEN 10 MG TABLET GT SCH ×3 (10:04→21:54)
[2020-07-25] MEDS: GLYCOPYRROLATE 1 MG TABLET PO SCH ×2 (10:04→23:13)
[2020-07-25] MEDS: FOLIC ACID 1 MG TABLET GT SCH (10:04)
[2020-07-25] MEDS: HEPARIN SODIUM,PORCINE 5,000 UNITS/ML VIAL SUBCUT SCH ×2 (10:06→22:00)
[2020-07-25] MEDS: hydrALAZINE HCL 20 MG/ML VIAL IVP PRN ×3 (10:07→23:16)
[2020-07-25] MEDS: LevETIRAcetam 500 MG/5 ML UDC ORAL LIQUID PO SCH ×2 (10:08→21:32)
[2020-07-25] MEDS: cloNIDine HCL 0.1 MG/24 HR PATCH.TDWK TD SCH (10:08)
[2020-07-25] MEDS: SOD FERRIC GLUC COMPLEX/SUC 125 MG in NS 100 ML IV SCH (12:20)
[2020-07-25 12:39] VITALS: BP_SYST 167
[2020-07-25] MEDS: D5W 1,000 ML IV SCH (13:46)
[2020-07-25] MEDS ORDERED: ACETAMINOPHEN 650 MG/20.3 ML UDC GT PRN (15:30)
[2020-07-25 16:29] VITALS: BP_SYST 154
[2020-07-25] MEDS: CHOLESTYRAMINE/SUCROSE 4 GM/PACKET PO SCH (21:31)
[2020-07-26 00:24] VITALS: BP_SYST 167
[2020-07-26] MEDS: MORPHINE 2 MG/ML INJ. SYRINGE IVP PRN (02:32)
[2020-07-26] MEDS: D5W 1,000 ML IV SCH ×2 (05:06→17:57)
[2020-07-26 07:05] LABS: BASOPHILS # (AUTO) 0.1 K/uL (0.0-0.2); BASOPHILS % (AUTO) 0.3 % (0.0-2.0); EOSINOPHILS % (AUTO) 0.1 % (0.0-4.0); HEMATOCRIT 33.6 % (36-54); HEMOGLOBIN 10.6 g/dL (14.0-18.0); LYMPHOCYTES # (AUTO) 1.8 K/uL (1.0-5.5); LYMPHOCYTES % (AUTO) 9.9 % (20.5-51.5); MEAN CORPUSCULAR HEMOGLOBIN 26 pg (27-31); MEAN CORPUSCULAR HGB CONC 32 % (32-36); MEAN CORPUSCULAR VOLUME 82 fL (79.0-98.0); MONOCYTES # (AUTO) 1.4 K/uL (0.0-1.0); MONOCYTES % (AUTO) 7.5 % (1.7-9.3); NEUTROPHILS # (AUTO) 14.9 K/uL (1.8-7.7); NEUTROPHILS % (AUTO) 82.2 % (40.0-70.0); PLATELET COUNT (AUTO) 371 K/uL (130-430); RED CELL DISTRIBUTION WIDTH 17.7 % (9.0-15.0); WHITE BLOOD COUNT (AUTO) 18.1 K/uL (4.8-10.8)
[2020-07-26 07:27] LABS: CALCIUM 9.3 mg/dL (8.4-11.0); CREATININE 1.7 mg/dL (0.55-1.30); POTASSIUM 3.7 mmol/L (3.5-5.1)
[2020-07-26] MEDS: DILTIAZEM HCL 60 MG TABLET PO SCH ×3 (07:35→21:13)
[2020-07-26] MEDS: LANSOPRAZOLE 30 MG CAPSULE.DR GT SCH (07:35)
[2020-07-26 08:00] VITALS: BP_SYST 158
[2020-07-26] MEDS: CHOLESTYRAMINE/SUCROSE 4 GM/PACKET PO SCH ×2 (08:39→21:13)
[2020-07-26] MEDS: FOLIC ACID 1 MG TABLET GT SCH (08:40)
[2020-07-26] MEDS: BACLOFEN 10 MG TABLET GT SCH ×3 (08:40→21:13)
[2020-07-26] MEDS: GLYCOPYRROLATE 1 MG TABLET PO SCH ×2 (08:40→21:12)
[2020-07-26] MEDS: LevETIRAcetam 500 MG/5 ML UDC ORAL LIQUID PO SCH ×2 (08:40→21:11)
[2020-07-26] MEDS: BALSAM PERU/CASTOR OIL 60 GM OINT...G. TP SCH (08:40)
[2020-07-26] MEDS: HEPARIN SODIUM,PORCINE 5,000 UNITS/ML VIAL SUBCUT SCH ×2 (08:42→21:17)
[2020-07-26] MEDS: SOD FERRIC GLUC COMPLEX/SUC 125 MG in NS 100 ML IV SCH (10:09)
[2020-07-26] MEDS: TIGECYCLINE 50 MG in NS 100 ML IV SCH ×2 (11:04→21:08)
[2020-07-26 12:15] VITALS: BP_SYST 161
[2020-07-26 16:19] VITALS: BP_SYST 160
[2020-07-26] MEDS: hydrALAZINE HCL 20 MG/ML VIAL IVP PRN (17:55)
[2020-07-27 00:44] VITALS: BP_SYST 150
[2020-07-27] MEDS: D5W 1,000 ML IV SCH ×3 (04:09→21:32)
[2020-07-27] MEDS: LANSOPRAZOLE 30 MG CAPSULE.DR GT SCH (05:54)
[2020-07-27] MEDS: DILTIAZEM HCL 60 MG TABLET PO SCH ×3 (05:58→23:30)
[2020-07-27 07:00] VITALS: BP_SYST 156
[2020-07-27 07:22] LABS: CALCIUM 7.9 mg/dL (8.4-11.0); CREATININE 1.37 mg/dL (0.55-1.30); POTASSIUM 3.4 mmol/L (3.5-5.1)
[2020-07-27] MEDS: TIGECYCLINE 50 MG in NS 100 ML IV SCH ×2 (08:17→20:58)
[2020-07-27] MEDS: BALSAM PERU/CASTOR OIL 60 GM OINT...G. TP SCH (08:17)
[2020-07-27] MEDS: FOLIC ACID 1 MG TABLET GT SCH (08:17)
[2020-07-27] MEDS: LevETIRAcetam 500 MG/5 ML UDC ORAL LIQUID PO SCH ×2 (08:17→20:59)
[2020-07-27] MEDS: GLYCOPYRROLATE 1 MG TABLET PO SCH ×2 (08:17→21:02)
[2020-07-27] MEDS: CHOLESTYRAMINE/SUCROSE 4 GM/PACKET PO SCH ×2 (08:17→20:59)
[2020-07-27] MEDS: BACLOFEN 10 MG TABLET GT SCH ×3 (08:17→21:02)
[2020-07-27] MEDS: HEPARIN SODIUM,PORCINE 5,000 UNITS/ML VIAL SUBCUT SCH ×2 (08:20→21:02)
[2020-07-27 08:44] LABS: BASOPHILS # (AUTO) 0.1 K/uL (0.0-0.2); BASOPHILS % (AUTO) 0.4 % (0.0-2.0); EOSINOPHILS # (AUTO) 0.1 K/uL (0.0-0.4); EOSINOPHILS % (AUTO) 0.6 % (0.0-4.0); HEMATOCRIT 31.4 % (36-54); LYMPHOCYTES # (AUTO) 1.7 K/uL (1.0-5.5); LYMPHOCYTES % (AUTO) 9.7 % (20.5-51.5); MEAN CORPUSCULAR HEMOGLOBIN 26 pg (27-31); MEAN CORPUSCULAR HGB CONC 32 % (32-36); MEAN CORPUSCULAR VOLUME 83 fL (79.0-98.0); MONOCYTES # (AUTO) 1.2 K/uL (0.0-1.0); MONOCYTES % (AUTO) 6.6 % (1.7-9.3); NEUTROPHILS # (AUTO) 14.6 K/uL (1.8-7.7); NEUTROPHILS % (AUTO) 82.7 % (40.0-70.0); PLATELET COUNT (AUTO) 319 K/uL (130-430); RED BLOOD CELL COUNT(AUTO) 3.79 MIL/uL (4.2-6.2); RED CELL DISTRIBUTION WIDTH 18.2 % (9.0-15.0); WHITE BLOOD COUNT (AUTO) 17.6 K/uL (4.8-10.8)
[2020-07-27 08:51] VITALS: BP_SYST 156
[2020-07-27 12:15] VITALS: BP_SYST 156
[2020-07-27] MEDS ORDERED: hydrALAZINE HCL 25 MG TABLET PO ONE (14:45)
[2020-07-27 16:15] VITALS: BP_SYST 160
[2020-07-27] MEDS ORDERED: POTASSIUM CHLORIDE 20 MEQ/PKT PACKET PO ONE (17:45)
[2020-07-27 20:00] VITALS: BP_SYST 150
[2020-07-28] VITALS: BP_SYST 142
[2020-07-28] MEDS: LANSOPRAZOLE 30 MG CAPSULE.DR GT SCH (06:11)
[2020-07-28] MEDS: DILTIAZEM HCL 60 MG TABLET PO SCH ×3 (06:14→21:45)
[2020-07-28] MEDS: D5W 1,000 ML IV SCH ×2 (06:14→21:41)
[2020-07-28 06:39] LABS: BASOPHILS # (AUTO) 0.1 K/uL (0.0-0.2); BASOPHILS % (AUTO) 0.5 % (0.0-2.0); EOSINOPHILS # (AUTO) 0.3 K/uL (0.0-0.4); EOSINOPHILS % (AUTO) 2.2 % (0.0-4.0); HEMATOCRIT 31.7 % (36-54); LYMPHOCYTES % (AUTO) 14.2 % (20.5-51.5); MEAN CORPUSCULAR HEMOGLOBIN 26 pg (27-31); MEAN CORPUSCULAR HGB CONC 32 % (32-36); MEAN CORPUSCULAR VOLUME 83 fL (79.0-98.0); MONOCYTES # (AUTO) 0.8 K/uL (0.0-1.0); MONOCYTES % (AUTO) 5.5 % (1.7-9.3); NEUTROPHILS # (AUTO) 11.1 K/uL (1.8-7.7); NEUTROPHILS % (AUTO) 77.6 % (40.0-70.0); PLATELET COUNT (AUTO) 283 K/uL (130-430); RED BLOOD CELL COUNT(AUTO) 3.84 MIL/uL (4.2-6.2); WHITE BLOOD COUNT (AUTO) 14.3 K/uL (4.8-10.8)
[2020-07-28 07:24] LABS: CALCIUM 8.8 mg/dL (8.4-11.0); CREATININE 1.21 mg/dL (0.55-1.30)
[2020-07-28 08:03] VITALS: BP_SYST 144
[2020-07-28] MEDS: CHOLESTYRAMINE/SUCROSE 4 GM/PACKET PO SCH ×2 (09:11→21:41)
[2020-07-28] MEDS: TIGECYCLINE 50 MG in NS 100 ML IV SCH ×2 (09:11→21:41)
[2020-07-28] MEDS: GLYCOPYRROLATE 1 MG TABLET PO SCH ×2 (09:12→21:45)
[2020-07-28] MEDS: LevETIRAcetam 500 MG/5 ML UDC ORAL LIQUID PO SCH ×2 (09:12→21:42)
[2020-07-28] MEDS: hydrALAZINE HCL 25 MG TABLET PO SCH (09:13)
[2020-07-28] MEDS: BACLOFEN 10 MG TABLET GT SCH ×3 (09:13→21:45)
[2020-07-28] MEDS: FOLIC ACID 1 MG TABLET GT SCH (09:13)
[2020-07-28 09:15] VITALS: BP_SYST 144
[2020-07-28] MEDS: HEPARIN SODIUM,PORCINE 5,000 UNITS/ML VIAL SUBCUT SCH ×2 (09:15→21:49)
[2020-07-28] MEDS: BALSAM PERU/CASTOR OIL 60 GM OINT...G. TP SCH (09:19)
[2020-07-28 12:11] VITALS: BP_SYST 157
[2020-07-28 16:37] VITALS: BP_SYST 149
[2020-07-28 20:00] VITALS: BP_SYST 145
[2020-07-29 00:28] VITALS: BP_SYST 148
[2020-07-29] MEDS: LANSOPRAZOLE 30 MG CAPSULE.DR GT SCH (06:06)
[2020-07-29] MEDS: DILTIAZEM HCL 60 MG TABLET PO SCH ×3 (06:06→21:02)
[2020-07-29 06:51] LABS: CALCIUM 8.4 mg/dL (8.4-11.0); CREATININE 0.79 mg/dL (0.55-1.30); POTASSIUM 3.9 mmol/L (3.5-5.1)
[2020-07-29 06:57] LABS: BASOPHILS % (AUTO) 0.3 % (0.0-2.0); EOSINOPHILS # (AUTO) 0.3 K/uL (0.0-0.4); EOSINOPHILS % (AUTO) 1.8 % (0.0-4.0); HEMATOCRIT 29.7 % (36-54); HEMOGLOBIN 9.5 g/dL (14.0-18.0); LYMPHOCYTES # (AUTO) 1.5 K/uL (1.0-5.5); MEAN CORPUSCULAR HEMOGLOBIN 26 pg (27-31); MEAN CORPUSCULAR HGB CONC 32 % (32-36); MEAN CORPUSCULAR VOLUME 82 fL (79.0-98.0); MONOCYTES # (AUTO) 0.8 K/uL (0.0-1.0); MONOCYTES % (AUTO) 4.9 % (1.7-9.3); NEUTROPHILS # (AUTO) 14.2 K/uL (1.8-7.7); PLATELET COUNT (AUTO) 241 K/uL (130-430); RED BLOOD CELL COUNT(AUTO) 3.62 MIL/uL (4.2-6.2); RED CELL DISTRIBUTION WIDTH 17.8 % (9.0-15.0)
[2020-07-29 08:25] VITALS: BP_SYST 155
[2020-07-29] MEDS: BACLOFEN 10 MG TABLET GT SCH ×3 (09:07→21:02)
[2020-07-29] MEDS: FOLIC ACID 1 MG TABLET GT SCH (09:07)
[2020-07-29] MEDS: CHOLESTYRAMINE/SUCROSE 4 GM/PACKET PO SCH ×2 (09:07→21:01)
[2020-07-29] MEDS: hydrALAZINE HCL 25 MG TABLET PO SCH (09:08)
[2020-07-29] MEDS: GLYCOPYRROLATE 1 MG TABLET PO SCH ×2 (09:08→21:02)
[2020-07-29] MEDS: LevETIRAcetam 500 MG/5 ML UDC ORAL LIQUID PO SCH ×2 (09:08→21:02)
[2020-07-29] MEDS: HEPARIN SODIUM,PORCINE 5,000 UNITS/ML VIAL SUBCUT SCH (09:10)
[2020-07-29] MEDS: D5W 1,000 ML IV SCH ×2 (09:51→18:07)
[2020-07-29] MEDS: BALSAM PERU/CASTOR OIL 60 GM OINT...G. TP SCH (10:00)
[2020-07-29 12:52] VITALS: BP_SYST 144
[2020-07-29 16:12] VITALS: BP_SYST 127
[2020-07-29] MEDS ORDERED: EMOLLIENT COMBINATION NO.73 78 GM CREAM..G. TP PRN (16:30)
[2020-07-29 20:30] VITALS: BP_SYST 146
[2020-07-30 00:19] VITALS: BP_SYST 133
[2020-07-30] MEDS: D5W 1,000 ML IV SCH ×3 (02:51→22:40)
[2020-07-30] MEDS: DILTIAZEM HCL 60 MG TABLET PO SCH ×3 (06:06→22:25)
[2020-07-30] MEDS: LANSOPRAZOLE 30 MG CAPSULE.DR GT SCH (06:06)
[2020-07-30 07:23] LABS: BASOPHILS # (AUTO) 0.1 K/uL (0.0-0.2); BASOPHILS % (AUTO) 0.5 % (0.0-2.0); EOSINOPHILS # (AUTO) 0.5 K/uL (0.0-0.4); EOSINOPHILS % (AUTO) 3.3 % (0.0-4.0); HEMATOCRIT 29.6 % (36-54); HEMOGLOBIN 9.5 g/dL (14.0-18.0); LYMPHOCYTES # (AUTO) 2.2 K/uL (1.0-5.5); MEAN CORPUSCULAR HEMOGLOBIN 26 pg (27-31); MEAN CORPUSCULAR HGB CONC 32 % (32-36); MEAN CORPUSCULAR VOLUME 82 fL (79.0-98.0); MONOCYTES # (AUTO) 0.8 K/uL (0.0-1.0); MONOCYTES % (AUTO) 5.3 % (1.7-9.3); NEUTROPHILS % (AUTO) 75.9 % (40.0-70.0); PLATELET COUNT (AUTO) 218 K/uL (130-430); RED CELL DISTRIBUTION WIDTH 18.5 % (9.0-15.0); WHITE BLOOD COUNT (AUTO) 14.5 K/uL (4.8-10.8)
[2020-07-30 08:00] VITALS: BP_SYST 145
[2020-07-30] MEDS ORDERED: DIATR MEGLU/DIATRIZ SOD 30 ML SOLUTION PO ONE (08:50)
[2020-07-30] MEDS: GLYCOPYRROLATE 1 MG TABLET PO SCH ×2 (09:43→22:39)
[2020-07-30] MEDS: FOLIC ACID 1 MG TABLET GT SCH (09:43)
[2020-07-30] MEDS: hydrALAZINE HCL 25 MG TABLET PO SCH (09:43)
[2020-07-30] MEDS: BACLOFEN 10 MG TABLET GT SCH ×3 (09:43→22:26)
[2020-07-30] MEDS: LevETIRAcetam 500 MG/5 ML UDC ORAL LIQUID PO SCH ×2 (09:44→22:24)
[2020-07-30] MEDS: CHOLESTYRAMINE/SUCROSE 4 GM/PACKET PO SCH ×2 (09:44→22:26)
[2020-07-30 12:20] VITALS: BP_SYST 150
[2020-07-30] MEDS: BALSAM PERU/CASTOR OIL 60 GM OINT...G. TP SCH (15:30)
[2020-07-30 16:21] VITALS: BP_SYST 153
[2020-07-30 20:00] VITALS: BP_SYST 140
[2020-07-31 00:30] VITALS: BP_SYST 141
[2020-07-31 04:00] VITALS: BP_SYST 141
[2020-07-31 06:43] LABS: CALCIUM 8.4 mg/dL (8.4-11.0); CREATININE 0.75 mg/dL (0.55-1.30); POTASSIUM 3.8 mmol/L (3.5-5.1)
[2020-07-31 06:44] LABS: BASOPHILS % (AUTO) 0.3 % (0.0-2.0); EOSINOPHILS # (AUTO) 0.4 K/uL (0.0-0.4); EOSINOPHILS % (AUTO) 3.3 % (0.0-4.0); HEMATOCRIT 28.9 % (36-54); HEMOGLOBIN 9.4 g/dL (14.0-18.0); LYMPHOCYTES # (AUTO) 1.8 K/uL (1.0-5.5); LYMPHOCYTES % (AUTO) 15.9 % (20.5-51.5); MEAN CORPUSCULAR HEMOGLOBIN 27 pg (27-31); MEAN CORPUSCULAR HGB CONC 33 % (32-36); MEAN CORPUSCULAR VOLUME 82 fL (79.0-98.0); MONOCYTES # (AUTO) 0.7 K/uL (0.0-1.0); MONOCYTES % (AUTO) 6.6 % (1.7-9.3); NEUTROPHILS # (AUTO) 8.4 K/uL (1.8-7.7); NEUTROPHILS % (AUTO) 73.9 % (40.0-70.0); PLATELET COUNT (AUTO) 200 K/uL (130-430); RED BLOOD CELL COUNT(AUTO) 3.54 MIL/uL (4.2-6.2); RED CELL DISTRIBUTION WIDTH 18.3 % (9.0-15.0); WHITE BLOOD COUNT (AUTO) 11.4 K/uL (4.8-10.8)
[2020-07-31] MEDS: BACLOFEN 10 MG TABLET GT SCH ×3 (08:54→21:10)
[2020-07-31] MEDS: FOLIC ACID 1 MG TABLET GT SCH (08:54)
[2020-07-31] MEDS: hydrALAZINE HCL 25 MG TABLET PO SCH (08:55)
[2020-07-31] MEDS: GLYCOPYRROLATE 1 MG TABLET PO SCH ×2 (08:55→21:10)
[2020-07-31] MEDS: CHOLESTYRAMINE/SUCROSE 4 GM/PACKET PO SCH ×2 (08:55→21:10)
[2020-07-31] MEDS: D5W 1,000 ML IV SCH ×2 (08:56→21:10)
[2020-07-31] MEDS: LevETIRAcetam 500 MG/5 ML UDC ORAL LIQUID PO SCH ×2 (08:56→21:10)
[2020-07-31 13:07] VITALS: BP_SYST 140
[2020-07-31] MEDS: DILTIAZEM HCL 60 MG TABLET PO SCH ×2 (14:50→21:11)
[2020-07-31] MEDS: BALSAM PERU/CASTOR OIL 60 GM OINT...G. TP SCH (16:00)
[2020-07-31 17:13] VITALS: BP_SYST 151
[2020-07-31 20:00] VITALS: BP_SYST 166
[2020-08-01 01:00] VITALS: BP_SYST 124
[2020-08-01 01:19] VITALS: BP_SYST 142
[2020-08-01] MEDS: DILTIAZEM HCL 60 MG TABLET PO SCH ×3 (06:00→21:39)
[2020-08-01 06:38] LABS: PROTHROMBIN TIME 10.1 SECS (9.5-12.5)
[2020-08-01 06:59] LABS: CALCIUM 8.1 mg/dL (8.4-11.0); CREATININE 0.74 mg/dL (0.55-1.30); POTASSIUM 3.6 mmol/L (3.5-5.1)
[2020-08-01 07:05] LABS: BASOPHILS % (AUTO) 0.4 % (0.0-2.0); EOSINOPHILS # (AUTO) 0.3 K/uL (0.0-0.4); EOSINOPHILS % (AUTO) 2.8 % (0.0-4.0); HEMATOCRIT 28.2 % (36-54); HEMOGLOBIN 9.2 g/dL (14.0-18.0); LYMPHOCYTES # (AUTO) 1.5 K/uL (1.0-5.5); LYMPHOCYTES % (AUTO) 12.3 % (20.5-51.5); MEAN CORPUSCULAR HEMOGLOBIN 27 pg (27-31); MEAN CORPUSCULAR HGB CONC 33 % (32-36); MEAN CORPUSCULAR VOLUME 82 fL (79.0-98.0); MONOCYTES # (AUTO) 0.7 K/uL (0.0-1.0); MONOCYTES % (AUTO) 6.1 % (1.7-9.3); NEUTROPHILS # (AUTO) 9.4 K/uL (1.8-7.7); NEUTROPHILS % (AUTO) 78.4 % (40.0-70.0); PLATELET COUNT (AUTO) 208 K/uL (130-430); RED BLOOD CELL COUNT(AUTO) 3.46 MIL/uL (4.2-6.2); RED CELL DISTRIBUTION WIDTH 18.6 % (9.0-15.0); WHITE BLOOD COUNT (AUTO) 11.9 K/uL (4.8-10.8)
[2020-08-01 07:10] VITALS: BP_SYST 123
[2020-08-01] MEDS: D5W 1,000 ML IV SCH ×2 (08:21→17:41)
[2020-08-01] MEDS: BALSAM PERU/CASTOR OIL 60 GM OINT...G. TP SCH (09:00)
[2020-08-01] MEDS: cloNIDine HCL 0.1 MG/24 HR PATCH.TDWK TD SCH (10:14)
[2020-08-01] MEDS: CHOLESTYRAMINE/SUCROSE 4 GM/PACKET PO SCH ×2 (10:14→21:37)
[2020-08-01] MEDS: LANSOPRAZOLE 30 MG CAPSULE.DR GT SCH ×2 (10:14→10:19)
[2020-08-01] MEDS: hydrALAZINE HCL 25 MG TABLET PO SCH (10:16)
[2020-08-01] MEDS: BACLOFEN 10 MG TABLET GT SCH ×3 (10:16→21:37)
[2020-08-01] MEDS: FOLIC ACID 1 MG TABLET GT SCH (10:16)
[2020-08-01] MEDS: GLYCOPYRROLATE 1 MG TABLET PO SCH ×2 (10:16→21:37)
[2020-08-01] MEDS: LevETIRAcetam 500 MG/5 ML UDC ORAL LIQUID PO SCH ×2 (10:17→21:37)
[2020-08-01 12:16] VITALS: BP_SYST 138
[2020-08-01 16:00] VITALS: BP_SYST 136; BP_SYST 141
[2020-08-01 20:11] VITALS: BP_SYST 133
[2020-08-02] VITALS (7 sets, daily range): BP systolic 134–144
[2020-08-02] MEDS: LANSOPRAZOLE 30 MG CAPSULE.DR GT SCH (06:09)
[2020-08-02] MEDS: DILTIAZEM HCL 60 MG TABLET PO SCH ×2 (06:09→14:48)
[2020-08-02] MEDS: BALSAM PERU/CASTOR OIL 60 GM OINT...G. TP SCH (08:44)
[2020-08-02] MEDS: CHOLESTYRAMINE/SUCROSE 4 GM/PACKET PO SCH ×2 (08:51→21:00)
[2020-08-02] MEDS: LevETIRAcetam 500 MG/5 ML UDC ORAL LIQUID PO SCH ×2 (08:51→21:00)
[2020-08-02] MEDS: FOLIC ACID 1 MG TABLET GT SCH (08:52)
[2020-08-02] MEDS: hydrALAZINE HCL 25 MG TABLET PO SCH (08:52)
[2020-08-02] MEDS: BACLOFEN 10 MG TABLET GT SCH ×3 (08:52→21:00)
[2020-08-02] MEDS: GLYCOPYRROLATE 1 MG TABLET PO SCH ×2 (08:53→21:00)
[2020-08-02] MEDS: D5W 1,000 ML IV SCH (14:47)
[2020-08-03] MEDS: D5W 1,000 ML IV SCH ×2 (04:49→20:53)
[2020-08-03] MEDS: DILTIAZEM HCL 60 MG TABLET PO SCH ×4 (06:14→20:52)
[2020-08-03] MEDS: LANSOPRAZOLE 30 MG CAPSULE.DR GT SCH (06:15)
[2020-08-03 08:00] VITALS: BP_SYST 146
[2020-08-03] MEDS: BACLOFEN 10 MG TABLET GT SCH ×3 (08:56→20:51)
[2020-08-03] MEDS: FOLIC ACID 1 MG TABLET GT SCH (08:57)
[2020-08-03] MEDS: LevETIRAcetam 500 MG/5 ML UDC ORAL LIQUID PO SCH ×2 (08:58→20:52)
[2020-08-03] MEDS: CHOLESTYRAMINE/SUCROSE 4 GM/PACKET PO SCH ×2 (08:58→20:51)
[2020-08-03] MEDS: GLYCOPYRROLATE 1 MG TABLET PO SCH ×2 (08:58→20:51)
[2020-08-03] MEDS: hydrALAZINE HCL 25 MG TABLET PO SCH (08:58)
[2020-08-03] MEDS: BALSAM PERU/CASTOR OIL 60 GM OINT...G. TP SCH (11:00)
[2020-08-03 11:40] LABS: BASOPHILS # (AUTO) 0.1 K/uL (0.0-0.2); BASOPHILS % (AUTO) 0.5 % (0.0-2.0); EOSINOPHILS # (AUTO) 0.5 K/uL (0.0-0.4); EOSINOPHILS % (AUTO) 3.1 % (0.0-4.0); HEMATOCRIT 29.7 % (36-54); HEMOGLOBIN 9.8 g/dL (14.0-18.0); LYMPHOCYTES % (AUTO) 12.3 % (20.5-51.5); MEAN CORPUSCULAR HEMOGLOBIN 27 pg (27-31); MEAN CORPUSCULAR HGB CONC 33 % (32-36); MEAN CORPUSCULAR VOLUME 82 fL (79.0-98.0); MONOCYTES # (AUTO) 0.9 K/uL (0.0-1.0); MONOCYTES % (AUTO) 5.5 % (1.7-9.3); NEUTROPHILS # (AUTO) 12.8 K/uL (1.8-7.7); NEUTROPHILS % (AUTO) 78.6 % (40.0-70.0); RED BLOOD CELL COUNT(AUTO) 3.63 MIL/uL (4.2-6.2); RED CELL DISTRIBUTION WIDTH 20.1 % (9.0-15.0); WHITE BLOOD COUNT (AUTO) 16.3 K/uL (4.8-10.8)
[2020-08-03 12:42] LABS: PLATELET COUNT (AUTO) 311 K/uL (130-430)
[2020-08-03 12:59] VITALS: BP_SYST 140
[2020-08-03 15:49] VITALS: BP_SYST 126
[2020-08-03] MEDS ORDERED: BISACODYL 5 MG TABLET.DR (DULCOLAX) PO ONE (17:00)
[2020-08-03] MEDS ORDERED: GOLYTELY / COLYTE SOLUTION 4 LITERS PO ONE (18:00)
[2020-08-03 20:39] VITALS: BP_SYST 137
[2020-08-04] VITALS: BP_SYST 130
[2020-08-04] MEDS: LANSOPRAZOLE 30 MG CAPSULE.DR GT SCH (05:38)
[2020-08-04] MEDS: DILTIAZEM HCL 60 MG TABLET PO SCH ×3 (05:38→22:31)
[2020-08-04 06:20] LABS: BASOPHILS % (AUTO) 0.2 % (0.0-2.0); EOSINOPHILS # (AUTO) 0.3 K/uL (0.0-0.4); EOSINOPHILS % (AUTO) 2.7 % (0.0-4.0); HEMATOCRIT 26.9 % (36-54); HEMOGLOBIN 8.9 g/dL (14.0-18.0); LYMPHOCYTES # (AUTO) 1.4 K/uL (1.0-5.5); LYMPHOCYTES % (AUTO) 12.7 % (20.5-51.5); MEAN CORPUSCULAR HEMOGLOBIN 27 pg (27-31); MEAN CORPUSCULAR HGB CONC 33 % (32-36); MEAN CORPUSCULAR VOLUME 81 fL (79.0-98.0); MONOCYTES # (AUTO) 0.7 K/uL (0.0-1.0); MONOCYTES % (AUTO) 6.4 % (1.7-9.3); NEUTROPHILS # (AUTO) 8.8 K/uL (1.8-7.7); PLATELET COUNT (AUTO) 256 K/uL (130-430); RED BLOOD CELL COUNT(AUTO) 3.31 MIL/uL (4.2-6.2); RED CELL DISTRIBUTION WIDTH 20.6 % (9.0-15.0); WHITE BLOOD COUNT (AUTO) 11.3 K/uL (4.8-10.8)
[2020-08-04 06:47] LABS: PROTHROMBIN TIME 10.1 SECS (9.5-12.5)
[2020-08-04 06:49] LABS: CALCIUM 8.5 mg/dL (8.4-11.0); CREATININE 0.57 mg/dL (0.55-1.30); POTASSIUM 3.3 mmol/L (3.5-5.1)
[2020-08-04] MEDS ORDERED: SIMETHICONE 40 MG/0.6 ML ML ONE (07:34)
[2020-08-04] MEDS ORDERED: fentaNYL CITRATE/PF 100 MCG/2 ML AMP ONE (07:35)
[2020-08-04] MEDS ORDERED: MIDAZOLAM HCL 5 MG/5 ML VIAL ONE (07:35)
[2020-08-04 07:55] VITALS: BP_SYST 131
[2020-08-04] MEDS ORDERED: POTASSIUM CHLORIDE 20 MEQ/PKT PACKET PO ONE (08:45)
[2020-08-04] MEDS: BACLOFEN 10 MG TABLET GT SCH ×3 (09:14→22:30)
[2020-08-04] MEDS: GLYCOPYRROLATE 1 MG TABLET PO SCH ×2 (09:14→22:30)
[2020-08-04] MEDS: FOLIC ACID 1 MG TABLET GT SCH (09:14)
[2020-08-04] MEDS: LevETIRAcetam 500 MG/5 ML UDC ORAL LIQUID PO SCH ×2 (09:14→21:00)
[2020-08-04] MEDS: CHOLESTYRAMINE/SUCROSE 4 GM/PACKET PO SCH ×2 (09:14→22:30)
[2020-08-04] MEDS: hydrALAZINE HCL 25 MG TABLET PO SCH (09:14)
[2020-08-04 13:01] VITALS: BP_SYST 138
[2020-08-04] MEDS: BALSAM PERU/CASTOR OIL 60 GM OINT...G. TP SCH (16:00)
[2020-08-04 16:30] VITALS: BP_SYST 135
[2020-08-04] MEDS: D5W 1,000 ML IV SCH ×2 (16:57→23:43)
[2020-08-04 19:00] VITALS: BP_SYST 150
[2020-08-04 20:00] VITALS: BP_SYST 153
[2020-08-05] VITALS: BP_SYST 134
[2020-08-05 06:00] VITALS: BP_SYST 135
[2020-08-05] MEDS: LANSOPRAZOLE 30 MG CAPSULE.DR GT SCH (06:36)
[2020-08-05] MEDS: DILTIAZEM HCL 60 MG TABLET PO SCH ×2 (06:36→15:38)
[2020-08-05 06:48] LABS: CALCIUM 8.9 mg/dL (8.4-11.0); CREATININE 0.6 mg/dL (0.55-1.30); POTASSIUM 3.8 mmol/L (3.5-5.1)
[2020-08-05 07:24] LABS: BASOPHILS % (AUTO) 0.3 % (0.0-2.0); EOSINOPHILS # (AUTO) 0.3 K/uL (0.0-0.4); EOSINOPHILS % (AUTO) 1.9 % (0.0-4.0); HEMATOCRIT 28.3 % (36-54); HEMOGLOBIN 9.2 g/dL (14.0-18.0); LYMPHOCYTES # (AUTO) 2.2 K/uL (1.0-5.5); LYMPHOCYTES % (AUTO) 16.4 % (20.5-51.5); MEAN CORPUSCULAR HEMOGLOBIN 27 pg (27-31); MEAN CORPUSCULAR HGB CONC 33 % (32-36); MEAN CORPUSCULAR VOLUME 83 fL (79.0-98.0); MONOCYTES # (AUTO) 0.8 K/uL (0.0-1.0); MONOCYTES % (AUTO) 6.2 % (1.7-9.3); NEUTROPHILS % (AUTO) 75.2 % (40.0-70.0); PLATELET COUNT (AUTO) 313 K/uL (130-430); RED BLOOD CELL COUNT(AUTO) 3.43 MIL/uL (4.2-6.2); RED CELL DISTRIBUTION WIDTH 20.9 % (9.0-15.0); WHITE BLOOD COUNT (AUTO) 13.3 K/uL (4.8-10.8)
[2020-08-05 08:00] VITALS: BP_SYST 134
[2020-08-05 09:51] VITALS: BP_SYST 135
[2020-08-05] MEDS: hydrALAZINE HCL 25 MG TABLET PO SCH (09:53)
[2020-08-05] MEDS: BACLOFEN 10 MG TABLET GT SCH ×2 (09:53→15:38)
[2020-08-05] MEDS: FOLIC ACID 1 MG TABLET GT SCH (09:53)
[2020-08-05] MEDS: CHOLESTYRAMINE/SUCROSE 4 GM/PACKET PO SCH (09:53)
[2020-08-05] MEDS: LevETIRAcetam 500 MG/5 ML UDC ORAL LIQUID PO SCH (09:54)
[2020-08-05] MEDS: BALSAM PERU/CASTOR OIL 60 GM OINT...G. TP SCH (09:54)
[2020-08-05] MEDS: GLYCOPYRROLATE 1 MG TABLET PO SCH (09:54)
[2020-08-05 12:11] VITALS: BP_SYST 145
[2020-08-05] MEDS: D5W 1,000 ML IV SCH (14:01)
[2020-08-05 16:12] VITALS: BP_SYST 100
== END 2020-08-05 19:27 | DRG 720 ==
LOC: SED 21:54 → SIC 07-10 03:23 → STU 07-12 10:48 → SIC 07-13 04:10 → STU 07-24 23:00
PROVIDERS: ADMIT Internal Medicine; ATTEND Internal Medicine
PROC: 5A1955Z Respiratory Ventilation, Greater than 96 Consecutive Hours (ICD-10-PCS; principal; 2020-07-10)
PROC: 0W9930Z Drainage of Right Pleural Cavity with Drainage Device, Percutaneous Approach (ICD-10-PCS; 2020-07-10)
PROC: 02HV33Z Insertion of Infusion Device into Superior Vena Cava, Percutaneous Approach (ICD-10-PCS; 2020-07-13)
PROC: B548ZZA Ultrasonography of Superior Vena Cava, Guidance (ICD-10-PCS; 2020-07-13)
PROC: 0B9M7ZX Drainage of Bilateral Lungs, Via Natural or Artificial Opening, Diagnostic (ICD-10-PCS; 2020-07-19)
PROC: 0T9B80Z Drainage of Bladder with Drainage Device, Via Natural or Artificial Opening Endoscopic (ICD-10-PCS; 2020-07-22)
PROC: 0DBP8ZX Excision of Rectum, Via Natural or Artificial Opening Endoscopic, Diagnostic (ICD-10-PCS; 2020-08-04)
DX: A41.89 Other specified sepsis (principal); G82.50 Quadriplegia, unspecified; J93.9 Pneumothorax, unspecified; L89.619 Pressure ulcer of right heel, unspecified stage; N50.89 Other specified disorders of the male genital organs; J44.9 Chronic obstructive pulmonary disease, unspecified; Z20.828 Contact with and (suspected) exposure to other viral communicable diseases; B96.89 Other specified bacterial agents as the cause of diseases classified elsewhere; E86.0 Dehydration; E87.0 Hyperosmolality and hypernatremia; E87.6 Hypokalemia; G40.909 Epilepsy, unspecified, not intractable, without status epilepticus; G93.1 Anoxic brain damage, not elsewhere classified; I25.10 Atherosclerotic heart disease of native coronary artery without angina pectoris; Z99.11 Dependence on respirator [ventilator] status; I25.2 Old myocardial infarction; I34.0 Nonrheumatic mitral (valve) insufficiency; I96 Gangrene, not elsewhere classified; J96.20 Acute and chronic respiratory failure, unspecified whether with hypoxia or hypercapnia; J69.0 Pneumonitis due to inhalation of food and vomit; J91.8 Pleural effusion in other conditions classified elsewhere; J94.2 Hemothorax; K62.6 Ulcer of anus and rectum; K64.4 Residual hemorrhoidal skin tags; E43 Unspecified severe protein-calorie malnutrition; N18.9 Chronic kidney disease, unspecified; I12.9 Hypertensive chronic kidney disease with stage 1 through stage 4 chronic kidney disease, or unspecified chronic kidney disease; N12 Tubulo-interstitial nephritis, not specified as acute or chronic; N17.9 Acute kidney failure, unspecified; N35.919 Unspecified urethral stricture, male, unspecified site; N48.1 Balanitis; K92.2 Gastrointestinal hemorrhage, unspecified; L89.159 Pressure ulcer of sacral region, unspecified stage; N36.8 Other specified disorders of urethra; D63.8 Anemia in other chronic diseases classified elsewhere; T83.091A Other mechanical complication of indwelling urethral catheter, initial encounter; Y83.8 Other surgical procedures as the cause of abnormal reaction of the patient, or of later complication, without mention of misadventure at the time of the procedure; R40.20 Unspecified coma; N48.89 Other specified disorders of penis; Z74.01 Bed confinement status; Z93.0 Tracheostomy status; Z93.1 Gastrostomy status; Z79.899 Other long term (current) drug therapy; Y92.89 Other specified places as the place of occurrence of the external cause; Z68.22 Body mass index [BMI] 22.0-22.9, adult
CPT/HCPCS: 31624; 36415; 36600; 45380; 71045; 71250-TC; 80048; 80053; 80202-TC; 81000-TC; 82272; 82607; 82728; 82746; 82803-TC; 82947-TC; 82962; 83540-TC; 83550-TC; 83605; 83735-TC; 83935-TC; 84100-TC; 84134; 85007; 85025; 85027; 85610-TC; 85730-TC; 86886; 86900; 86901; 86920; 87040-TC; 87070-TC; 87081; 87086; 87186-TC; 87230-TC; 88305; 89055; 93005; 94002; 94003; 94640; 94760; 96365; 99285; A6209; C1751; C1769; C2627; G0378; J0360; J0690; J1644; J1650; J1956; J2001; J2060; J2175; J2250; J2270; J2543; J2916; J3010; J3243; J3370; J3465; J3490; J7030; J7040; J7050; J7060; J7120; J7613; P9046; Q0163; Q9964; U0003-CS